=== PATIENT | female | born 1935 | race African-American/Black ===

== ENCOUNTER 2016-09-02 13:29 | Emergency (ER) | payer OTHER ==
[~2016-09-02] VITALS: Ht 154.9 cm; Wt 100.7 kg
[~2016-09-02 13:29] MED LIST: AMLO10TA4 PO; DIAZEPAM10 MG PO; DOXY100C2 PO; DOXY100T PO; GABA-586 PO; GABA300S PO; HYDR-2762 PO; IPRA4AER IH; OXYC-244 PO; PRED20TA PO; [UNRECOGNIZED DRUG - REMARK]; [UNRECOGNIZED DRUG - REMARK]; blood pressure pill; breathing tx; cholesterol; water pill
--- NOTE | 2016-09-02 15:41 | PHYS DOC ---
Past Medical History Past Medical History: Arthritis, Bronchitis, COPD, Hypertension Past Surgical History: Other Additional Past Surgical Histo: hernia with mesh, bilateral hip and knees Alcohol Use: None Drug Use: None Adult General Chief Complaint Chief Complaint: SHORTNESS OF BREATH [facility] HPI Patient is a 81 year old female presents emergency department stating that she has been having shortness of breath with wheezing. She states that whenever she is up moving around in her apartment she becomes short of air. She states that this is nothing new although she did go to her primary care physician today and was told that she was breathing 35 times per minute and he sent her here to the emergency department. Patient states that she is doing fine she is having no breathing problems whatsoever. She denies any cough or congestion. Patient does states she hasn't albuterol machine at home in which she has used a week ago. Patient denies any recent use of steroids. She denies any swelling in her lower extremities. Review of Systems Review of Systems Constitutional: Denies fever or chills [] Eyes: Denies change in visual acuity, redness, or eye pain [] HENT: Denies nasal congestion or sore throat [] Respiratory: Denies cough C/o shortness of breath and wheezing Cardiovascular: No additional information not addressed in HPI [] GI: Denies abdominal pain, nausea, vomiting, bloody stools or diarrhea [] : Denies dysuria or hematuria [] Musculoskeletal: Denies back pain or joint pain [] Integument: Denies rash or skin lesions [] Neurologic: Denies headache, focal weakness or sensory changes [] Current Medications Current Medications Current Medications Medications (Trade) Dose Ordered Sig/Pam Start Time Stop Time Status Last Admin Dose Admin Albuterol/ Ipratropium (Duoneb) 3 ml 1X ONCE 09/02/16 15:45 09/02/16 15:46 DC 09/02/16 16:32 3 ML Allergies Allergies Allergies Coded Allergies Type Severity Reaction Last Updated Verified Penicillins Allergy Intermediate 04/21/16 Yes Sulfa (Sulfonamide Antibiotics) Allergy Intermediate 04/21/16 Yes iodine Allergy Intermediate 04/21/16 Yes Physical Exam Physical Exam Constitutional: Well developed, well nourished, no acute distress, non-toxic appearance. [] HENT: Normocephalic, atraumatic, bilateral external ears normal, oropharynx moist, no oral exudates, nose normal. [] Eyes: PERRLA, EOMI, conjunctiva normal, no discharge. [] Neck: Normal range of motion, no tenderness, supple, no stridor. [] Cardiovascular:Heart rate regular rhythm, no murmur [] Lungs & Thorax: Bilateral breath sounds with wheezes noted bilaterally posteriorly. Skin: Warm, dry, no erythema, no rash. [] Back: No tenderness Extremities: No tenderness, no cyanosis, no clubbing, ROM intact, patient was noted to have bilateral lower extremity swelling approximately 2+. Peripheral pulses 2+. Neurologic: Alert and oriented X 3, normal motor function, normal sensory function, no focal deficits noted. [] Psychologic: Affect normal, judgement normal, mood normal. [] Current Patient Data Vital Signs Vital Signs Date Time Temp Pulse Resp B/P Pulse Ox O2 Delivery O2 Flow Rate FiO2 09/02/16 16:33 96 Nasal Cannula 09/02/16 15:30 97.7 73 28 195/86 97.7 Lab Values Laboratory Tests Test 09/02/16 16:40 White Blood Count 8.3x10^3/uL (4.0-11.0) Red Blood Count 4.40x10^6/uL (3.50-5.40) Hemoglobin 12.9g/dL (12.0-15.5) Hematocrit 39.9% (36.0-47.0) Mean Corpuscular Volume 91fL (79-100) Mean Corpuscular Hemoglobin 29pg (25-35) Mean Corpuscular Hemoglobin Concent 32g/dL (31-37) Red Cell Distribution Width 14.5% (11.5-14.5) Platelet Count 260x10^3/uL (140-400) Neutrophils (%) (Auto) 42% (31-73) Lymphocytes (%) (Auto) 43% (24-48) Monocytes (%) (Auto) 11% (0-9) H Eosinophils (%) (Auto) 3% (0-3) Basophils (%) (Auto) 1% (0-3) Neutrophils # (Auto) 3.5x10^3uL (1.8-7.7) Lymphocytes # (Auto) 3.6x10^3/uL (1.0-4.8) Monocytes # (Auto) 0.9x10^3/uL (0.0-1.1) Eosinophils # (Auto) 0.2x10^3/uL (0.0-0.7) Basophils # (Auto) 0.1x10^3/uL (0.0-0.2) Sodium Level 141mmol/L (136-145) Potassium Level 3.4mmol/L (3.5-5.1) L Chloride Level 108mmol/L (98-107) H Carbon Dioxide Level 25mmol/L (21-32) Anion Gap 8 (6-14) Blood Urea Nitrogen 13mg/dL (7-20) Creatinine 0.8mg/dL (0.6-1.0) Estimated GFR (Cockcroft-Gault) 83.7 BUN/Creatinine Ratio 16 (6-20) Glucose Level 163mg/dL (70-99) H Calcium Level 8.8mg/dL (8.5-10.1) Total Bilirubin 0.3mg/dL (0.2-1.0) Aspartate Amino Transferase (AST) 55U/L (15-37) H Alanine Aminotransferase (ALT) 85U/L (14-59) H Alkaline Phosphatase 74U/L (46-116) Troponin I Quantitative < 0.017ng/mL (0.000-0.055) VG-Rsc-B-Type Natriuretic Peptide 165pg/mL (0-449) Total Protein 7.6g/dL (6.4-8.2) Albumin 3.4g/dL (3.4-5.0) Albumin/Globulin Ratio 0.8 (1.0-1.7) L Laboratory Tests 09/02/16 16:40 Laboratory Tests 09/02/16 16:40 EKG EKG [] Radiology/Procedures Radiology/Procedures [][facility] [address] [place], [place] [id number] IMAGING REPORT Signed PATIENT: MATTHEW PADILLA ACCOUNT: [id number] : 1935 LOCATION: ER AGE: 81 SEX: F EXAM STATUS: PRE ER ORD. PHYSICIAN: SEBASTIAN MONZON NP REASON: difficulty breathing wheezing PROCEDURE: CHEST AP ONLY Portable AP upright view CXR: Clinical indications: Shortness of air starting today. History of COPD and bronchitis.. Comparison: April 29, 2016. Findings: No acute lung infiltrate or pleural effusion or pulmonary edema or lung mass or pneumothorax is seen. The heart size, pulmonary vasculature, mediastinum and both alber are unremarkable. Impression: No acute radiographic abnormality is seen. DICTATED and SIGNED BY: ESTEE KENNEDY MD DATE: 09/02/16 1633 CC: SEBASTIAN MONZON AIR BRUSH OPERATOR; HARRIETT PHOENIX MD ~ Course & Med Decision Making Course & Med Decision Making Pertinent Labs and Imaging studies reviewed. (See chart for details) Patient received a respiratory treatment here in the emergency Department. Breath sounds are clear at this time. Patient will be discharged home in stable condition. CBC chemistries troponin and BMP normal. Patient will be provided with steroids. She'll be recommended to use her albuterol nebulizer machine more frequently. Recommended following up with her primary care physician next 3 -5 days. Since symptoms to return back to emergency prior has been provided. Patient agrees with discharge instructions treatment regimens and follow-up recommendations. [] Dragon Disclaimer Dragon Disclaimer This electronic medical record was generated, in whole or in part, using a voice recognition dictation system. Departure Departure Impression: Primary Impression: COPD exacerbation Disposition: HOME, SELF-CARE Condition: STABLE Referrals: HARRIETT PHOENIX MD (PCP) Patient Instructions: Chronic Obstructive Pulmonary Disease Exacerbation, Easy- to-Read Additional Instructions: Activity as tolerated. Medications as prescribed. Use your albuterol nebulizer machine every 4-6 hours as needed for shortness of air difficulty breathing or wheezing. Follow-up with her primary care physician in the next 3-5 days. Return back to emergency prior signs symptoms of become worse. Scripts Prednisone 20 Mg [id number] Mg PO DAILY #10 TAB Prov:SEBASTIAN MONZON NP 09/02/16 SEBASTIAN MONZON NP Sep 02, 2016 15:41
[2016-09-02] MEDS ORDERED: IPRATRPIUM/ALBUTEROL 0.5/2.5MG 3 ML NEBU. NEB ONE (15:45)
--- NOTE | 2016-09-02 16:35 | RAD ---
Portable AP upright view CXR: Clinical indications: Shortness of air starting today. History of COPD and bronchitis.. Comparison: April 29, 2016. Findings: No acute lung infiltrate or pleural effusion or pulmonary edema or lung mass or pneumothorax is seen. The heart size, pulmonary vasculature, mediastinum and both alber are unremarkable. Impression: No acute radiographic abnormality is seen.
[2016-09-02 16:54] LABS: BASO # 0.1 x10^3/uL (0.0-0.2); BASO % 1 % (0-3); EOS % 3 % (0-3); HEMATOCRIT 39.9 % (36.0-47.0); HEMOGLOBIN 12.9 g/dL (12.0-15.5); LYMPH # 3.6 x10^3/uL (1.0-4.8); LYMPH % 43 % (24-48); MEAN CORPUSCULAR HEMOGLOBIN 29 pg (25-35); MEAN CORPUSCULAR HGB CONC 32 g/dL (31-37); MEAN CORPUSCULAR VOLUME 91 fL (79-100); MONO % 11 % (0-9); NEUT % 42 % (31-73); PLATELET COUNT 260 x10^3/uL (140-400); RED CELL DISTRIBUTION WIDTH 14.5 % (11.5-14.5); WHITE BLOOD COUNT 8.3 x10^3/uL (4.0-11.0)
[2016-09-02 17:05] LABS: CALCIUM 8.8 mg/dL (8.5-10.1); CREATININE 0.8 mg/dL (0.6-1.0); GFR 83.7; POTASSIUM 3.4 mmol/L (3.5-5.1)
[2016-09-02 17:12] LABS: ALBUMIN 3.4 g/dL (3.4-5.0); ALBUMIN/GLOBULIN RATIO 0.8 (1.0-1.7); TOTAL BILIRUBIN 0.3 mg/dL (0.2-1.0); TOTAL PROTEIN 7.6 g/dL (6.4-8.2)
[2016-09-02 17:20] VITALS: BP 187/84
[2016-09-02] MEDS ORDERED: PRED20TA PO (17:27)
--- NOTE | 2016-09-03 12:16 | EKG ---
[facility] [address] [place] [address] Test Date: 2016-09-02 Test Time: 16:04:50 Pat Name: MATTHEW PADILLA Department: Room: Gender: F Ventilating Engineer: : 1935 Requested By: SEBASTIAN MONZON Order Number: [id number] Reading MD: Marj Hdez Measurements Intervals [place] Rate: 68 P: NC: QRS: -24 QRSD: 84 T: 10 QT: 420 QTc: 447 Interpretive Statements SINUS RHYTHM PROLONGED NC INTERVAL LEFTWARD AXIS Electronically Signed On 09-04-2016 20:54:40 SHEARER SCREEN MEASURER AND TRIMMER by Marj Hdez
== END 2016-09-02 17:45 | disposition home or self-care (01) ==
LOC: EDBD 13:29 → ER 13:29
DX: J44.1 Chronic obstructive pulmonary disease with (acute) exacerbation (principal); M19.90 Unspecified osteoarthritis, unspecified site; I10 Essential (primary) hypertension; Z88.0 Allergy status to penicillin; Z88.2 Allergy status to sulfonamides; Z91.041 Radiographic dye allergy status
CPT/HCPCS: 36415; 71010; 80053; 83880; 84484; 85027; 93005; 94250; 94640; 99285; J7620

== ENCOUNTER 2017-05-03 22:29 | Emergency (ER) | payer OTHER ==
[~2017-05-03] VITALS: Ht 175.3 cm; Wt 104.3 kg
[~2017-05-03 22:29] MED LIST changes: -OXYC-244 PO; +OXYC-327 PO
[2017-05-03 22:35] VITALS: BP 165/83
--- NOTE | 2017-05-03 23:21 | PHYS DOC ---
Past Medical History Past Medical History: Arthritis, Bronchitis, COPD, Hypertension Past Surgical History: Other Additional Past Surgical Histo: hernia with mesh, bilateral hip and knees Alcohol Use: Occasionally Drug Use: None Adult General Chief Complaint Chief Complaint: HIP PAIN HPI HPI Patient is a 82 year old female presents to the emergency department per [facility] Department. Patient states that 3 weeks ago she fell and she's been having right low back and hip pain since that fall. Patient reports that she has chronic low back pain. Patient does report that she's had 1 pint of alcohol to drink tonight. She states she does not drink daily. She does appear intoxicated, slurred speech and inability to consistently follow her injury timeline. Review of Systems Review of Systems Constitutional: Denies fever or chills [] Eyes: Denies change in visual acuity, redness, or eye pain [] HENT: Denies nasal congestion or sore throat [] Respiratory: Denies cough or shortness of breath [] Cardiovascular: No additional information not addressed in HPI [] GI: Denies abdominal pain, nausea, vomiting, bloody stools or diarrhea [] : Denies dysuria or hematuria [] Musculoskeletal: Right low back and right hip pain Integument: Denies rash or skin lesions [] Neurologic: Denies headache, focal weakness or sensory changes [] Endocrine: Denies polyuria or polydipsia [] Allergies Allergies Allergies Coded Allergies Type Severity Reaction Last Updated Verified Penicillins Allergy Intermediate 04/21/16 Yes Sulfa (Sulfonamide Antibiotics) Allergy Intermediate 04/21/16 Yes iodine Allergy Intermediate 04/21/16 Yes Physical Exam Physical Exam Constitutional: Well developed, well nourished, no acute distress, non-toxic appearance. [] HENT: Normocephalic, atraumatic, bilateral external ears normal, oropharynx moist, no oral exudates, nose normal. [] Eyes: PERRLA, EOMI, conjunctiva normal, no discharge. [] Neck: Normal range of motion, no tenderness, supple, no stridor. [] Cardiovascular:Heart rate regular rhythm, no murmur, trace LE edema [] Lungs & Thorax: Bilateral breath sounds clear to auscultation [] Abdomen: Bowel sounds normal, soft, no tenderness, no masses, no pulsatile masses. [] Skin: Warm, dry, no erythema, no rash. [] Back: Tender to palpate over the right sacroiliac crest. No midline spine tenderness. Extremities:Mild tender to palpate over the right lateral hip into the right lateral thigh. Negative straight raise leg test. No saddle anesthesia. Patient does have increase in pain in the lumbar region with flexion of the hip at 90. NVI distally. Bilateral calves are supple, negative Homans bilaterally Neurologic: Alert and oriented X 3, normal motor function, normal sensory function, no focal deficits noted. NHISS assessed score 0 [] Current Patient Data Vital Signs Vital Signs Date Time Temp Pulse Resp B/P (MAP) Pulse Ox O2 Delivery O2 Flow Rate FiO2 05/03/17 22:35 98.3 103 18 165/83 (110) 97 Room Air 98.3 EKG EKG [] Radiology/Procedures Radiology/Procedures Right hip and pelvis x-ray unremarkable for acute bony changes Course & Med Decision Making Course & Med Decision Making Pertinent Labs and Imaging studies reviewed. (See chart for details) []Patient will be discharged to the care of a family friend. He has agreed to stay with her this evening. She is in stable condition on discharge Dragon Disclaimer Dragon Disclaimer This electronic medical record was generated, in whole or in part, using a voice recognition dictation system. Departure Departure Impression: Primary Impression: Sciatica Disposition: HOME, SELF-CARE Condition: STABLE Referrals: HARRIETT PHOENIX MD (PCP) Patient Instructions: Back Pain, Adult, Sciatica Problem Qualifiers Primary Impression: Sciatica Laterality: right Qualified Codes: M54.31 - Sciatica, right side EDINSON GARCIA APRN May 03, 2017 23:21
--- NOTE | 2017-05-04 08:16 | RAD ---
Indication right hip pain. 2 AP views of the pelvis were obtained as well as targeted AP and frog leg views of the right hip. There are bilateral total hip prostheses. There are some degenerative changes in the visualized lower lumbar spine. Several phleboliths are noted in the pelvis. There is moderately extensive vascular calcification. No acute bony finding is seen. IMPRESSION: No acute bony finding
== END 2017-05-03 23:50 | disposition home or self-care (01) ==
LOC: ER 22:29
DX: M54.41 Lumbago with sciatica, right side (principal); M25.551 Pain in right hip; G89.29 Other chronic pain; I10 Essential (primary) hypertension; J44.9 Chronic obstructive pulmonary disease, unspecified; M19.90 Unspecified osteoarthritis, unspecified site; Z88.0 Allergy status to penicillin; Z88.2 Allergy status to sulfonamides; Z91.041 Radiographic dye allergy status
CPT/HCPCS: 73502; 99284

== ENCOUNTER → 2017-09-01 | Outpatient (CLI) | payer MEDICARE | END | disposition home or self-care (01) | LOC: KCIC 09:16 | DX: M79.652 Pain in left thigh (principal); Z96.652 Presence of left artificial knee joint; Z96.642 Presence of left artificial hip joint; Z91.81 History of falling | CPT/HCPCS: 73552 ==

== ENCOUNTER → 2017-09-21 | Outpatient (CLI) | payer BC | END | disposition home or self-care (01) | LOC: PMGORTHO 09:49 | DX: M47.896 Other spondylosis, lumbar region (principal); M43.16 Spondylolisthesis, lumbar region; M48.061 Spinal stenosis, lumbar region without neurogenic claudication; M46.06 Spinal enthesopathy, lumbar region | CPT/HCPCS: 72100 ==

== ENCOUNTER → 2017-11-15 | Outpatient (CLI) | payer OTHER | END | disposition home or self-care (01) | LOC: KCIC MRI 10:25 | DX: M51.37 Other intervertebral disc degeneration, lumbosacral region (principal); M43.16 Spondylolisthesis, lumbar region; M48.061 Spinal stenosis, lumbar region without neurogenic claudication; M25.78 Osteophyte, vertebrae | CPT/HCPCS: 72148 ==

== ENCOUNTER → 2017-12-11 | Outpatient (CLI) | payer OTHER ==
[~2017-12-11] MED LIST changes: -AMLO10TA4 PO; -DIAZEPAM10 MG PO; -DOXY100C2 PO; -DOXY100T PO; -GABA-586 PO; -GABA300S PO; -HYDR-2762 PO; +IOHEXOL 180 MG/ML 10 ML VIAL.; -IPRA4AER IH; -OXYC-327 PO; -PRED20TA PO; -[UNRECOGNIZED DRUG - REMARK]; -[UNRECOGNIZED DRUG - REMARK]; -blood pressure pill; -breathing tx; -cholesterol; +methylPREDNISolone ACETATE 40 MG/ML VIAL.; +methylPREDNISolone ACETATE 80 MG/ML VIAL.; -water pill
== END | disposition home or self-care (01) ==
LOC: PNCL 10:18
DX: M51.16 Intervertebral disc disorders with radiculopathy, lumbar region (principal); M48.061 Spinal stenosis, lumbar region without neurogenic claudication; I10 Essential (primary) hypertension; J43.9 Emphysema, unspecified; M19.90 Unspecified osteoarthritis, unspecified site; F17.210 Nicotine dependence, cigarettes, uncomplicated; Z99.81 Dependence on supplemental oxygen; Z96.643 Presence of artificial hip joint, bilateral; Z90.710 Acquired absence of both cervix and uterus; Z90.49 Acquired absence of other specified parts of digestive tract; Z96.653 Presence of artificial knee joint, bilateral; Z88.0 Allergy status to penicillin; Z88.2 Allergy status to sulfonamides; Z79.899 Other long term (current) drug therapy
CPT/HCPCS: 62323; J1030; J1040; Q9965

== ENCOUNTER → 2017-12-29 | Outpatient (CLI) | payer OTHER | END | disposition home or self-care (01) | LOC: US 15:07 | DX: N28.89 Other specified disorders of kidney and ureter (principal); I11.0 Hypertensive heart disease with heart failure; I50.43 Acute on chronic combined systolic (congestive) and diastolic (congestive) heart failure | CPT/HCPCS: 76770 ==

== ENCOUNTER 2018-04-03 20:45 | Inpatient (IN) | payer OTHER ==
[~2018-04-03] VITALS: Ht 154.9 cm; Wt 98.9 kg
[~2018-04-03 20:45] MED LIST changes: +AMLO10TA4 PO; +ASPI-482 PO; +ATOR20TA58 PO; +ATOR40TA59 PO; +CARV12.5 PO; +CARV25TA2 PO; +CEFP200T PO; +DIAZEPAM10 MG PO; +DILT180C2 PO; +DOXY100C2 PO; +DOXY100T PO; +FLUO20CA8 PO; +FURO-68 PO; +FURO40TA4 PO; +GABA-586 PO; +GABA300S PO; +HYDR-2762 PO; +HYDR-2868 PO; -IOHEXOL 180 MG/ML 10 ML VIAL.; +IPRA4AER IH; +LOSA100T6 PO; +LOSA50TA6 PO; +OXYC-327 PO; +POTA20TA82 PO; +PRED20TA PO; +[UNRECOGNIZED DRUG - REMARK]; +[UNRECOGNIZED DRUG - REMARK]; +blood pressure pill; +breathing tx; +cholesterol; -methylPREDNISolone ACETATE 40 MG/ML VIAL.; -methylPREDNISolone ACETATE 80 MG/ML VIAL.; +water pill
--- NOTE | 2018-04-03 21:24 | PHYS DOC ---
Past Medical History Past Medical History: CHF, COPD Past Surgical History: Knee Replacement Additional Past Surgical Histo: hernia with mesh, bilateral hip and knees Alcohol Use: None Drug Use: None Adult General Chief Complaint Chief Complaint: SHORTNESS OF BREATH HPI HPI Patient is a 82 year old female with history of COPD, current smoker, who presents today from home, by EMS, EMS crew reports this patient has been picked up 5 times from the floor in her own house after falling. They also stated patient needed oxygen at home when she was picked up. Patient states she has history of COPD and uses oxygen as needed. She states she has chronic problems with her left leg. She states her own doctor recommended she gets injections to her back which she refused. She states she already drank alcohol today. She states she does not want anyone sticking her for IVs. I tried talking to patient find out her reasonable expectation about being in the ED. Patient continues to be loud she is currently stating she does not want anybody drawing labs and sticking her multiple times. She is alert and oriented 3, she is currently on room air with O2 sats above 95%. Patient also very defensive stating we cannot touch her left lower extremity. Patient denies any loss of bowel bladder function. Denies any numbness or tingling to bilateral lower extremities. PCP Dr. Aaron Gama's Review of Systems Review of Systems Constitutional: Denies fever or chills [] Eyes: Denies change in visual acuity, redness, or eye pain [] HENT: Denies nasal congestion or sore throat [] Respiratory: Reports shortness of breath. Denies cough Cardiovascular: No additional information not addressed in HPI [] GI: Denies abdominal pain, nausea, vomiting, bloody stools or diarrhea [] : Denies dysuria or hematuria [] Musculoskeletal: Multiple falls today. Integument: Denies rash or skin lesions [] Neurologic: Denies headache, focal weakness or sensory changes [] All other systems were reviewed and found to be within normal limits, except as documented in this note. Current Medications Current Medications Current Medications Medications (Trade) Dose Ordered Sig/Pam Start Time Stop Time Status Last Admin Dose Admin Albuterol/ Ipratropium (Duoneb) 3 ml 1X ONCE 04/03/18 21:30 04/03/18 21:31 DC 04/03/18 21:22 3 ML Dexamethasone Sodium Phosphate (Decadron) 10 mg 1X ONCE 04/03/18 21:30 04/03/18 21:31 DC 04/04/18 00:05 10 MG Sodium Chloride 1,000 ml @ 1,000 mls/hr 1X ONCE 04/03/18 21:30 04/03/18 22:29 DC 04/04/18 00:05 1,000 MLS/HR Allergies Allergies Allergies Coded Allergies Type Severity Reaction Last Updated Verified Penicillins Allergy Intermediate 04/21/16 Yes Sulfa (Sulfonamide Antibiotics) Allergy Intermediate 04/21/16 Yes iodine Allergy Intermediate 04/21/16 Yes piperacillin Allergy Intermediate 06/10/17 No Physical Exam Physical Exam Constitutional: Well developed, well nourished, no acute distress, non-toxic appearance. [] HENT: Normocephalic, atraumatic, bilateral external ears normal, oropharynx moist, no oral exudates, nose normal. [] Eyes: PERRLA, EOMI, conjunctiva normal, no discharge. [] Neck: Normal range of motion, no tenderness, supple, no stridor. [] Cardiovascular:Heart rate regular rhythm, no murmur [] Lungs & Thorax: Bilateral breath sounds clear to auscultation [] Abdomen: Bowel sounds normal, soft, no tenderness, no masses, no pulsatile masses. [] Skin: Warm, dry, no erythema, no rash. [] Back: No tenderness, no CVA tenderness. [] Extremities: Limited lower extremity exam because patient will not let us touch her lower extremities. no clubbing, no edema. [] Neurologic: Alert and oriented X 3, normal motor function, normal sensory function, no focal deficits noted. [] Psychologic: Very loud appears drunk Current Patient Data Vital Signs Vital Signs Date Time Temp Pulse Resp B/P (MAP) Pulse Ox O2 Delivery O2 Flow Rate FiO2 04/03/18 21:22 100 Nasal Cannula 04/03/18 20:59 79 186/86 (119) 04/03/18 20:45 98.3 22 98.3 Lab Values Laboratory Tests Test 04/03/18 22:25 Urine Collection Type Unknown Urine Color Yellow Urine Clarity Clear Urine pH 5.0 Urine Specific [place] 1.010 Urine Protein Negative mg/dL (NEG-TRACE) Urine Glucose (UA) Negative mg/dL (NEG) Urine Ketones (Stick) Negative mg/dL (NEG) Urine Blood Negative (NEG) Urine Nitrite Negative (NEG) Urine Bilirubin Negative (NEG) Urine Urobilinogen Dipstick 0.2 mg/dL (0.2 mg/dL) Urine Leukocyte Esterase Negative (NEG) Urine RBC Occ /HPF (0-2) Urine WBC Occ /HPF (0-4) Urine Squamous Epithelial Cells Mod /LPF Urine Bacteria Few /HPF (0-FEW) Urine Mucus Slight /LPF Urine Opiates Screen Neg (NEG) Urine Methadone Screen Neg (NEG) Urine Barbiturates Neg (NEG) Urine Phencyclidine Screen Neg (NEG) Urine Amphetamine/Methamphetamine Neg (NEG) Urine Benzodiazepines Screen Neg (NEG) Urine Cocaine Screen Neg (NEG) Urine Cannabinoids Screen Neg (NEG) Urine Ethyl Alcohol Pos (NEG) EKG EKG [] Radiology/Procedures Radiology/Procedures [] Course & Med Decision Making Course & Med Decision Making Pertinent Labs and Imaging studies reviewed. 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 They state she was short of air when the arrived to her house. Patient herself states she uses oxygen as needed, she states she did not have her oxygen on when she fell. Patient is very loud screaming and refusing to be assessed or touched she appears drunk. She is refusing lab work. After while in the ED labs obtained. Alcohol level 213. CT of the head was also ordered. Chest x-ray is negative. CBC CMP troponin are negative. This patient is not safe to be discharged home. Consulted with Dr. Neves who accepted patient for admission. Banana bag ordered. Alcohol withdrawal protocol ordered. Head CT pending. Dragon Disclaimer Dragon Disclaimer This electronic medical record was generated, in whole or in part, using a voice recognition dictation system. Departure Departure Impression: Primary Impression: Fall Additional Impressions: ETOH abuse COPD (chronic obstructive pulmonary disease) Disposition: ADMITTED INPATIENT Condition: STABLE Referrals: AARON FARRAR MD (PCP) Problem Qualifiers Primary Impression: Fall Encounter type: initial encounter Qualified Codes: W19.XXXA - Unspecified fall, initial encounter Additional Impressions: COPD (chronic obstructive pulmonary disease) COPD type: unspecified COPD Qualified Codes: J44.9 - Chronic obstructive pulmonary disease, unspecified MUTUNGA,JULIANNE SERVICE DESK LEAD Apr 03, 2018 21:24
[2018-04-03] MEDS ORDERED: DEXAMETHASONE SOD PHOS 20 MG/5 ML VIAL. IV ONE (21:30)
[2018-04-03] MEDS ORDERED: IPRATRPIUM/ALBUTEROL 0.5/2.5MG 3 ML NEBU. NEB ONE (21:30)
[2018-04-03] MEDS ORDERED: IV NORMAL SALINE 1000ML BAG 1,000 ML IV ONE (21:30)
--- NOTE | 2018-04-03 22:24 | RAD ---
Indication:LEFT KNEE, DISTAL FEMUR PAIN AFTER FALL. PT REFUSES TO PERFORM LATERAL POSITION OF LEFT KNEE TECHNIQUE: 3 views of the left knee COMPARISON:None FINDINGS: Status post total knee arthroplasty. No acute fracture or dislocation. Arterial calcification seen suggesting atherosclerotic disease. IMPRESSION: No acute fractures in this limited exam. Electronically signed by: Karan Dean DO (04/03/2018 10:21 PM) [facility]
--- NOTE | 2018-04-03 22:25 | RAD ---
PROCEDURE: PORTABLE CHEST 1V CLINICAL INDICATION: SOA COMPARISON: None FINDINGS: No pneumothorax identified. Cardiac and mediastinal contours unremarkable. No pulmonary consolidation or acute airspace disease. No acute osseous abnormalities identified. IMPRESSION: No pulmonary consolidation or acute airspace disease. Electronically signed by: Karan Dean DO (04/03/2018 10:22 PM) [facility]
[2018-04-03 22:39] LABS: BILIRUBIN,URINE NEGATIVE (NEG); CLARITY,URINE CLEAR; COLOR,URINE YELLOW; NITRITE,URINE NEGATIVE (NEG); PROTEIN,URINE NEGATIVE (NEG-TRACE); UROBILINOGEN,URINE 0.2 mg/dL (0.2 mg/dL)
[2018-04-03 22:44] LABS: BARBITURATES NEG (NEG); BENZODIAZEPINES NEG (NEG); CANNABINOIDS NEG (NEG); COCAINE NEG (NEG); METHADONE NEG (NEG); OPIATES NEG (NEG); PHENCYCLIDINE NEG (NEG)
[2018-04-03 22:45] LABS: BACTERIA,URINE FEW /HPF (0-FEW); RBC,URINE OCC /HPF (0-2); SQUAMOUS EPITHELIAL CELL,UR MOD /LPF; WBC,URINE OCC /HPF (0-4)
[2018-04-03 22:46] LABS: AMPHETAMINE/METHAMPHETAMINE NEG (NEG)
[2018-04-03 23:27] LABS: BASO # 0.1 x10^3/uL (0.0-0.2); BASO % 1 % (0-3); EOS # 0.2 x10^3/uL (0.0-0.7); EOS % 2 % (0-3); HEMATOCRIT 40.4 % (36.0-47.0); HEMOGLOBIN 13.5 g/dL (12.0-15.5); LYMPH # 4.4 x10^3/uL (1.0-4.8); LYMPH % 49 % (24-48); MEAN CORPUSCULAR HEMOGLOBIN 31 pg (25-35); MEAN CORPUSCULAR HGB CONC 34 g/dL (31-37); MEAN CORPUSCULAR VOLUME 91 fL (79-100); MONO # 0.7 x10^3/uL (0.0-1.1); MONO % 8 % (0-9); NEUT # 3.6 x10^3uL (1.8-7.7); NEUT % 40 % (31-73); PLATELET COUNT 241 x10^3/uL (140-400); RED BLOOD COUNT 4.43 x10^6/uL (3.50-5.40); WHITE BLOOD COUNT 8.9 x10^3/uL (4.0-11.0)
[2018-04-03 23:40] LABS: CALCIUM 9.2 mg/dL (8.5-10.1); CREATININE 0.8 mg/dL (0.6-1.0); GFR 83.5; POTASSIUM 4.1 mmol/L (3.5-5.1)
[2018-04-03 23:45] LABS: ALBUMIN 3.7 g/dL (3.4-5.0); ALBUMIN/GLOBULIN RATIO 0.9 (1.0-1.7); MAGNESIUM 1.9 mg/dL (1.8-2.4); TOTAL BILIRUBIN 0.3 mg/dL (0.2-1.0); TOTAL PROTEIN 7.7 g/dL (6.4-8.2)
--- NOTE | 2018-04-03 23:53 | EKG ---
[facility] [address] [place] [address] Test Date: 2018-04-03 Test Time: 21:37:00 Pat Name: MATTHEW PADILLA Department: Room: 554 1 Gender: F Log Chipper: : 1935 Requested By: JULIANNE POP Order Number: [id number] Reading MD: Riccardo Granados MD Measurements Intervals [place] Rate: 83 P: 62 TN: 226 QRS: -7 QRSD: 82 T: 6 QT: 422 QTc: 502 Interpretive Statements SINUS RHYTHM PROLONGED TN INTERVAL RBBB Electronically Signed On 04-04-2018 8:19:44 CDT by Riccardo Granados MD
[2018-04-04] MEDS ORDERED: MORPHINE SULFATE 4 MG/ML VIAL. IV PRN (00:45)
[2018-04-04] MEDS ORDERED: ACETAMINOPHEN 325 MG TABLET. PO PRN (00:45)
[2018-04-04] MEDS ORDERED: ONDANSETRON PF 4 MG/2 ML VIAL. IV PRN (00:45)
[2018-04-04 01:15] VITALS: BP 182/97
[2018-04-04] MEDS ORDERED: MULTIVIT INFUSN,ADULT 4,VIT K 10 ML, THIAMINE 100 MG, FOLIC ACID 1 MG in IV NORMAL SALI... IV ONE (01:30)
[2018-04-04 04:54] LABS: % BANDS 1 % (0-9); % EOS 2 % (0-5); % LYMPHS 52 % (24-48); % MONOS 3 % (0-10); % SEGS 42 % (35-66); PLT ESTIMATE ADEQUATE (ADEQUATE)
[2018-04-04 07:00] VITALS: BP 209/109
[2018-04-04] MEDS ORDERED: GABA300C8 PO (07:44)
[2018-04-04] MEDS ORDERED: TRAM100C2 PO (07:44)
[2018-04-04] MEDS: IPRATRPIUM/ALBUTEROL 0.5/2.5MG 3 ML NEBU. NEB SCH ×4 (07:45→19:40)
[2018-04-04] MEDS: CARVEDILOL 12.5 MG TABLET. PO SCH ×2 (08:29→16:54)
[2018-04-04] MEDS: LOSARTAN POTASSIUM 50 MG TABLET. PO SCH (08:30)
[2018-04-04] MEDS ORDERED: LABETALOL 20 MG/4 ML DISP.SYRIN. IVP ONE (08:30)
[2018-04-04] MEDS: traMADol 50 MG TABLET PO PRN ×2 (08:30→14:00)
[2018-04-04] MEDS: GABAPENTIN 300 MG CAPSULE. PO SCH ×3 (08:31→21:24)
[2018-04-04] MEDS: FUROSEMIDE 40 MG TABLET. PO SCH (08:31)
--- NOTE | 2018-04-04 09:05 | RAD ---
EXAM: CT Head without IV contrast CLINICAL HISTORY: FALLS PRIOR SENT COMPARISON: CT head 05/21/2016 TECHNIQUE: Routine CT of the head without contrast. Soft tissues and bone windows were reviewed. PQRS compliance statement - One or more of the following individualized dose reduction techniques were utilized for this study: 1. Automated exposure control 2. Adjustment of the mA and/or kV according to patient size 3. Use of iterative reconstruction technique FINDINGS: There is no evidence of hemorrhage, mass or extra-axial fluid collection. Jamil-white differentiation is maintained with no evidence of edema. There are non-specific foci of hypodensity in the periventricular and subcortical white matter of the cerebral hemispheres. There is no mass effect or shift of the intracranial structures. The ventricles, basilar cisterns and cortical sulci are normal in size and configuration for the patients stated age. The cerebellum and brainstem are unremarkable. The calvarium demonstrates no evidence of fracture or focal lesion. There is normal aeration of the visualized paranasal sinuses and mastoid air cells. The visualized portions of the orbits are normal. Atherosclerotic calcifications of the intracranial internal carotid and vertebral arteries is seen. IMPRESSION: 1. No evidence for acute intracranial process. 2. Scattered foci of subcortical and periventricular hypodensities likely chronic small vessel disease Electronically signed by: Josse Hollins MD (04/04/2018 9:02 AM) [id number]
[2018-04-04] MEDS: hydrALAZINE 25 MG TABLET PO SCH ×3 (09:13→21:25)
--- NOTE | 2018-04-04 10:47 | PDOC ---
PROGRESS NOTES Chief Complaint Chief Complaint CC presents from home, by EMS, EMS crew reports this patient has been picked up 5 times from the floor in her own house after falling. patient needed oxygen at home when she was picked up. has history of COPD and uses oxygen as needed. History of Present Illness History of Present Illness Impression: Fall GAIT instability [place] ALCOHOL ABUSE COPD (chronic obstructive pulmonary disease) HYPERTENSION CHRONIC PAIN dental caries PLAN OFFERED ETOH REHAB PT/OT TELE BED ALARM HIGH [place] RISK D/C TRAMADOL DUE TO ETOH USE Vitals Vitals Vital Signs Date Time Temp Pulse Resp B/P (MAP) Pulse Ox O2 Delivery O2 Flow Rate FiO2 04/04/18 09:13 68 141/98 04/04/18 08:30 18 100 Nasal Cannula 2.0 04/04/18 07:00 97.6 97.6 Physical Exam Physical Exam Review of Systems Review of Systems Constitutional: Denies fever or chills [] Eyes: Denies change in visual acuity, redness, or eye pain [] HENT: Denies nasal congestion or sore throat [] Respiratory: Reports shortness of breath. Denies cough Cardiovascular: No additional information not addressed in HPI [] GI: Denies abdominal pain, nausea, vomiting, bloody stools or diarrhea [] : Denies dysuria or hematuria [] Musculoskeletal: Multiple falls today. Integument: Denies rash or skin lesions [] Neurologic: Denies headache, focal weakness or sensory changes [] 14 systems were reviewed and found to be within normal limits, except as documented General: Alert, Oriented X3, Cooperative, mild distress, Other (multiple caries ) Heart: Regular rate Lungs: Clear Abdomen: Normal bowel sounds, Soft Extremities: No cyanosis Skin: No significant lesion Labs LABS Laboratory Tests Test 04/03/18 22:25 04/03/18 23:10 04/04/18 08:00 Urine Collection Type Unknown Urine Color Yellow Urine Clarity Clear Urine pH 5.0 Urine Specific [place] 1.010 Urine Protein Negative mg/dL (NEG-TRACE) Urine Glucose (UA) Negative mg/dL (NEG) Urine Ketones (Stick) Negative mg/dL (NEG) Urine Blood Negative (NEG) Urine Nitrite Negative (NEG) Urine Bilirubin Negative (NEG) Urine Urobilinogen Dipstick 0.2 mg/dL (0.2 mg/dL) Urine Leukocyte Esterase Negative (NEG) Urine RBC Occ /HPF (0-2) Urine WBC Occ /HPF (0-4) Urine Squamous Epithelial Cells Mod /LPF Urine Bacteria Few /HPF (0-FEW) Urine Mucus Slight /LPF Urine Opiates Screen Neg (NEG) Urine Methadone Screen Neg (NEG) Urine Barbiturates Neg (NEG) Urine Phencyclidine Screen Neg (NEG) Urine Amphetamine/Methamphetamine Neg (NEG) Urine Benzodiazepines Screen Neg (NEG) Urine Cocaine Screen Neg (NEG) Urine Cannabinoids Screen Neg (NEG) Urine Ethyl Alcohol Pos (NEG) White Blood Count 8.9 x10^3/uL (4.0-11.0) Red Blood Count 4.43 x10^6/uL (3.50-5.40) Hemoglobin 13.5 g/dL (12.0-15.5) Hematocrit 40.4 % (36.0-47.0) Mean Corpuscular Volume 91 fL (79-100) Mean Corpuscular Hemoglobin 31 pg (25-35) Mean Corpuscular Hemoglobin Concent 34 g/dL (31-37) Red Cell Distribution Width 15.0 % (11.5-14.5) Platelet Count 241 x10^3/uL (140-400) Neutrophils (%) (Auto) 40 % (31-73) Lymphocytes (%) (Auto) 49 % (24-48) Monocytes (%) (Auto) 8 % (0-9) Eosinophils (%) (Auto) 2 % (0-3) Basophils (%) (Auto) 1 % (0-3) Neutrophils # (Auto) 3.6 x10^3uL (1.8-7.7) Lymphocytes # (Auto) 4.4 x10^3/uL (1.0-4.8) Monocytes # (Auto) 0.7 x10^3/uL (0.0-1.1) Eosinophils # (Auto) 0.2 x10^3/uL (0.0-0.7) Basophils # (Auto) 0.1 x10^3/uL (0.0-0.2) Segmented Neutrophils % 42 % (35-66) Band Neutrophils % 1 % (0-9) Lymphocytes % 52 % (24-48) Monocytes % 3 % (0-10) Eosinophils % 2 % (0-5) Platelet Estimate Adequate (ADEQUATE) Sodium Level 142 mmol/L (136-145) Potassium Level 4.1 mmol/L (3.5-5.1) Chloride Level 106 mmol/L (98-107) Carbon Dioxide Level 23 mmol/L (21-32) Anion Gap 13 (6-14) Blood Urea Nitrogen 14 mg/dL (7-20) Creatinine 0.8 mg/dL (0.6-1.0) Estimated GFR (Cockcroft-Gault) 83.5 BUN/Creatinine Ratio 18 (6-20) Glucose Level 155 mg/dL (70-99) Calcium Level 9.2 mg/dL (8.5-10.1) Magnesium Level 1.9 mg/dL (1.8-2.4) Total Bilirubin 0.3 mg/dL (0.2-1.0) Aspartate Amino Transf (AST/SGOT) 83 U/L (15-37) Alanine Aminotransferase (ALT/SGPT) 93 U/L (14-59) Alkaline Phosphatase 79 U/L (46-116) Creatine Kinase 523 U/L (26-192) Creatine Kinase MB (Mass) 6.0 ng/mL (0.0-3.6) Creatine Kinase MB Relative Index 1.1 % (0-4) Troponin I Quantitative < 0.017 ng/mL (0.000-0.055) XD-Che-T-Type Natriuretic Peptide 169 pg/mL (0-449) Total Protein 7.7 g/dL (6.4-8.2) Albumin 3.7 g/dL (3.4-5.0) Albumin/Globulin Ratio 0.9 (1.0-1.7) Lipase 118 U/L (73-393) Thyroid Stimulating Hormone (TSH) 1.172 uIU/mL (0.358-3.74) Ethyl Alcohol Level 213 mg/dL (0-10) 55 mg/dL (0-10) Assessment and Plan Assessmemt and Plan Problems Medical Problems: (1) COPD (chronic obstructive pulmonary disease) Status: Acute (2) ETOH abuse Status: Acute (3) Fall Status: Acute Comment Review of Relevant I have reviewed the following items pricila (where applicable) has been applied. Labs Laboratory Tests Test 04/03/18 22:25 04/03/18 23:10 04/04/18 08:00 Urine Collection Type Unknown Urine Color Yellow Urine Clarity Clear Urine pH 5.0 Urine Specific [place] 1.010 Urine Protein Negative mg/dL (NEG-TRACE) Urine Glucose (UA) Negative mg/dL (NEG) Urine Ketones (Stick) Negative mg/dL (NEG) Urine Blood Negative (NEG) Urine Nitrite Negative (NEG) Urine Bilirubin Negative (NEG) Urine Urobilinogen Dipstick 0.2 mg/dL (0.2 mg/dL) Urine Leukocyte Esterase Negative (NEG) Urine RBC Occ /HPF (0-2) Urine WBC Occ /HPF (0-4) Urine Squamous Epithelial Cells Mod /LPF Urine Bacteria Few /HPF (0-FEW) Urine Mucus Slight /LPF Urine Opiates Screen Neg (NEG) Urine Methadone Screen Neg (NEG) Urine Barbiturates Neg (NEG) Urine Phencyclidine Screen Neg (NEG) Urine Amphetamine/Methamphetamine Neg (NEG) Urine Benzodiazepines Screen Neg (NEG) Urine Cocaine Screen Neg (NEG) Urine Cannabinoids Screen Neg (NEG) Urine Ethyl Alcohol Pos (NEG) White Blood Count 8.9 x10^3/uL (4.0-11.0) Red Blood Count 4.43 x10^6/uL (3.50-5.40) Hemoglobin 13.5 g/dL (12.0-15.5) Hematocrit 40.4 % (36.0-47.0) Mean Corpuscular Volume 91 fL (79-100) Mean Corpuscular Hemoglobin 31 pg (25-35) Mean Corpuscular Hemoglobin Concent 34 g/dL (31-37) Red Cell Distribution Width 15.0 % (11.5-14.5) Platelet Count 241 x10^3/uL (140-400) Neutrophils (%) (Auto) 40 % (31-73) Lymphocytes (%) (Auto) 49 % (24-48) Monocytes (%) (Auto) 8 % (0-9) Eosinophils (%) (Auto) 2 % (0-3) Basophils (%) (Auto) 1 % (0-3) Neutrophils # (Auto) 3.6 x10^3uL (1.8-7.7) Lymphocytes # (Auto) 4.4 x10^3/uL (1.0-4.8) Monocytes # (Auto) 0.7 x10^3/uL (0.0-1.1) Eosinophils # (Auto) 0.2 x10^3/uL (0.0-0.7) Basophils # (Auto) 0.1 x10^3/uL (0.0-0.2) Segmented Neutrophils % 42 % (35-66) Band Neutrophils % 1 % (0-9) Lymphocytes % 52 % (24-48) Monocytes % 3 % (0-10) Eosinophils % 2 % (0-5) Platelet Estimate Adequate (ADEQUATE) Sodium Level 142 mmol/L (136-145) Potassium Level 4.1 mmol/L (3.5-5.1) Chloride Level 106 mmol/L (98-107) Carbon Dioxide Level 23 mmol/L (21-32) Anion Gap 13 (6-14) Blood Urea Nitrogen 14 mg/dL (7-20) Creatinine 0.8 mg/dL (0.6-1.0) Estimated GFR (Cockcroft-Gault) 83.5 BUN/Creatinine Ratio 18 (6-20) Glucose Level 155 mg/dL (70-99) Calcium Level 9.2 mg/dL (8.5-10.1) Magnesium Level 1.9 mg/dL (1.8-2.4) Total Bilirubin 0.3 mg/dL (0.2-1.0) Aspartate Amino Transf (AST/SGOT) 83 U/L (15-37) Alanine Aminotransferase (ALT/SGPT) 93 U/L (14-59) Alkaline Phosphatase 79 U/L (46-116) Creatine Kinase 523 U/L (26-192) Creatine Kinase MB (Mass) 6.0 ng/mL (0.0-3.6) Creatine Kinase MB Relative Index 1.1 % (0-4) Troponin I Quantitative < 0.017 ng/mL (0.000-0.055) XV-Olg-I-Type Natriuretic Peptide 169 pg/mL (0-449) Total Protein 7.7 g/dL (6.4-8.2) Albumin 3.7 g/dL (3.4-5.0) Albumin/Globulin Ratio 0.9 (1.0-1.7) Lipase 118 U/L (73-393) Thyroid Stimulating Hormone (TSH) 1.172 uIU/mL (0.358-3.74) Ethyl Alcohol Level 213 mg/dL (0-10) 55 mg/dL (0-10) Laboratory Tests Test 04/03/18 22:25 04/03/18 23:10 04/04/18 08:00 Urine Collection Type Unknown Urine Color Yellow Urine Clarity Clear Urine pH 5.0 Urine Specific [place] 1.010 Urine Protein Negative mg/dL (NEG-TRACE) Urine Glucose (UA) Negative mg/dL (NEG) Urine Ketones (Stick) Negative mg/dL (NEG) Urine Blood Negative (NEG) Urine Nitrite Negative (NEG) Urine Bilirubin Negative (NEG) Urine Urobilinogen Dipstick 0.2 mg/dL (0.2 mg/dL) Urine Leukocyte Esterase Negative (NEG) Urine RBC Occ /HPF (0-2) Urine WBC Occ /HPF (0-4) Urine Squamous Epithelial Cells Mod /LPF Urine Bacteria Few /HPF (0-FEW) Urine Mucus Slight /LPF Urine Opiates Screen Neg (NEG) Urine Methadone Screen Neg (NEG) Urine Barbiturates Neg (NEG) Urine Phencyclidine Screen Neg (NEG) Urine Amphetamine/Methamphetamine Neg (NEG) Urine Benzodiazepines Screen Neg (NEG) Urine Cocaine Screen Neg (NEG) Urine Cannabinoids Screen Neg (NEG) Urine Ethyl Alcohol Pos (NEG) White Blood Count 8.9 x10^3/uL (4.0-11.0) Red Blood Count 4.43 x10^6/uL (3.50-5.40) Hemoglobin 13.5 g/dL (12.0-15.5) Hematocrit 40.4 % (36.0-47.0) Mean Corpuscular Volume 91 fL (79-100) Mean Corpuscular Hemoglobin 31 pg (25-35) Mean Corpuscular Hemoglobin Concent 34 g/dL (31-37) Red Cell Distribution Width 15.0 % (11.5-14.5) Platelet Count 241 x10^3/uL (140-400) Neutrophils (%) (Auto) 40 % (31-73) Lymphocytes (%) (Auto) 49 % (24-48) Monocytes (%) (Auto) 8 % (0-9) Eosinophils (%) (Auto) 2 % (0-3) Basophils (%) (Auto) 1 % (0-3) Neutrophils # (Auto) 3.6 x10^3uL (1.8-7.7) Lymphocytes # (Auto) 4.4 x10^3/uL (1.0-4.8) Monocytes # (Auto) 0.7 x10^3/uL (0.0-1.1) Eosinophils # (Auto) 0.2 x10^3/uL (0.0-0.7) Basophils # (Auto) 0.1 x10^3/uL (0.0-0.2) Segmented Neutrophils % 42 % (35-66) Band Neutrophils % 1 % (0-9) Lymphocytes % 52 % (24-48) Monocytes % 3 % (0-10) Eosinophils % 2 % (0-5) Platelet Estimate Adequate (ADEQUATE) Sodium Level 142 mmol/L (136-145) Potassium Level 4.1 mmol/L (3.5-5.1) Chloride Level 106 mmol/L (98-107) Carbon Dioxide Level 23 mmol/L (21-32) Anion Gap 13 (6-14) Blood Urea Nitrogen 14 mg/dL (7-20) Creatinine 0.8 mg/dL (0.6-1.0) Estimated GFR (Cockcroft-Gault) 83.5 BUN/Creatinine Ratio 18 (6-20) Glucose Level 155 mg/dL (70-99) Calcium Level 9.2 mg/dL (8.5-10.1) Magnesium Level 1.9 mg/dL (1.8-2.4) Total Bilirubin 0.3 mg/dL (0.2-1.0) Aspartate Amino Transf (AST/SGOT) 83 U/L (15-37) Alanine Aminotransferase (ALT/SGPT) 93 U/L (14-59) Alkaline Phosphatase 79 U/L (46-116) Creatine Kinase 523 U/L (26-192) Creatine Kinase MB (Mass) 6.0 ng/mL (0.0-3.6) Creatine Kinase MB Relative Index 1.1 % (0-4) Troponin I Quantitative < 0.017 ng/mL (0.000-0.055) DX-Hgf-T-Type Natriuretic Peptide 169 pg/mL (0-449) Total Protein 7.7 g/dL (6.4-8.2) Albumin 3.7 g/dL (3.4-5.0) Albumin/Globulin Ratio 0.9 (1.0-1.7) Lipase 118 U/L (73-393) Thyroid Stimulating Hormone (TSH) 1.172 uIU/mL (0.358-3.74) Ethyl Alcohol Level 213 mg/dL (0-10) 55 mg/dL (0-10) Medications Current Medications Albuterol/ Ipratropium (Duoneb) 3 ml 1X ONCE NEB Last administered on at 21:22; Start 04/03/18 at 21:30; Stop 04/03/18 at 21:31; Status DC Dexamethasone Sodium Phosphate (Decadron) 10 mg 1X ONCE IV Last administered on 04/04/18at 00:05; Start 04/03/18 at 21:30; Stop 04/03/18 at 21:31; Status DC Sodium Chloride 1,000 ml @ 1,000 mls/hr 1X ONCE IV Last administered on at 00:05; Start 04/03/18 at 21:30; Stop 04/03/18 at 22:29; Status DC Ondansetron HCl (Zofran) 4 mg PRN Q8HRS PRN IV NAUSEA/VOMITING 1ST CHOICE; Start 04/04/18 at 00:45; Stop 04/05/18 at 00:44 Morphine Sulfate (Morphine Sulfate) 4 mg PRN Q2HR PRN IV SEVERE PAIN; Start at 00:45; Stop 04/05/18 at 00:44 Acetaminophen (Tylenol) 650 mg PRN Q4HRS PRN PO FEVER; Start 04/04/18 at 00:45 ; Stop 04/05/18 at 00:44 Albuterol/ Ipratropium (Duoneb) 3 ml RTQID NEB Last administered on 04/04/18at 07:45; Start 04/04/18 at 08:00; Stop 04/05/18 at 07:59 Lorazepam (Ativan) 2 mg PRN Q15MIN PRN IV ETOH WITHDRAWAL; Start 04/04/18 at 00 :45 Multivitamins 10 ml/Thiamine HCl 100 mg/Folic Acid 1 mg/Sodium Chloride 1,011.2 ml @ 250 mls/ hr 1X ONCE IV Last administered on 04/04/18at 04:47; Start 04/04 at 01:30; Stop 04/04/18 at 05:32; Status DC Atorvastatin Calcium (Lipitor) 20 mg HS PO ; Start 04/04/18 at 21:00 Furosemide (Lasix) 40 mg DAILY PO Last administered on 04/04/18 08:31; Start 04/04/18 at 09:00 Carvedilol (Coreg) 25 mg BIDWMEALS PO Last administered on 04/04/18 08:29; Start 04/04/18 at 09:00 Diltiazem HCl (Cardizem 24hr Cd) 180 mg DAILY PO Last administered on 08:31; Start 04/04/18 at 09:00 Gabapentin (Neurontin) 300 mg TID PO Last administered on 04/04/18 08:31; Start 04/04/18 at 09:00 Hydralazine HCl (Apresoline) 25 mg TID PO Last administered on 04/04/18 09:13 ; Start 04/04/18 at 09:00 Losartan Potassium (Cozaar) 100 mg DAILY PO Last administered on 04/04/18 08: 30; Start 04/04/18 at 09:00 Tramadol HCl (Ultram) 50 mg PRN TID PRN PO PAIN Last administered on 04/04/18 08:30; Start 04/04/18 at 08:15 Labetalol HCl (Normodyne Iv Push) 10 mg 1X ONCE IVP Last administered on 08:28; Start 04/04/18 at 08:30; Stop 04/04/18 at 08:31; Status DC Active Scripts Active Reported Conzip (Tramadol Hcl) 100 Mg Cpmp.25.75 50 Mg PO TID PRN PRN Gabapentin 300 Mg Capsule 300 Mg PO TID 30 Days Cardizem Cd (Diltiazem Hcl) 180 Mg Cap.er.24h 1 Cap PO DAILY Hydralazine Hcl 25 Mg Tablet 1 Tab PO TID Furosemide 40 Mg Tablet 1 Tab PO DAILY Atorvastatin Calcium 20 Mg Tablet 20 Mg PO HS Losartan Potassium 100 Mg Tablet 100 Mg PO DAILY Carvedilol 25 Mg Tablet 1 Tab PO BIDWMEALS Vitals/I & O Vital Sign - Last 24 Hours 04/03/18 04/03/18 04/03/18 04/03/18 20:45 20:59 21:22 23:58 Temp 98.3 98.3 Pulse 82 79 80 Resp 22 B/P (MAP) 186/86 (119) 186/86 (119) 161/97 (118) Pulse Ox 100 100 100 100 O2 Delivery Room Air Nasal Cannula 8/22/18 8/22/18 8/22/18 8/22/18 01:15 02:28 07:00 07:47 Temp 98.0 97.6 98.0 97.6 Pulse 91 92 Resp 20 24 B/P (MAP) 182/97 (125) 209/109 (142) Pulse Ox 93 95 100 O2 Delivery Nasal Cannula Nasal Cannula Nasal Cannula Nasal Cannula O2 Flow Rate 2.0 2.0 2.0 2.0 04/04/18 04/04/18 04/04/18 04/04/18 08:28 08:29 08:30 08:30 Pulse 78 78 78 Resp 18 B/P (MAP) 209/109 209/109 209/109 Pulse Ox 100 O2 Delivery Nasal Cannula O2 Flow Rate 2.0 04/04/18 04/04/18 08:31 09:13 Pulse 78 68 B/P (MAP) 209/109 141/98 Intake and Output 04/03/18 04/03/18 04/04/18 15:00 23:00 07:00 Intake Total 1240 ml Balance 1240 ml OSCAR MANNING MD Apr 04, 2018 10:47
--- NOTE | 2018-04-04 10:51 | PDOC1 ---
History and Physical Date of Admission Date of Admission DATE: 04/04/18 TIME: 10:50 Identification/Chief Complaint Chief Complaint Chief Complaint Chief Complaint CC presents from home, by EMS, EMS crew reports this patient has been picked up 5 times from the floor in her own house after falling. patient needed oxygen at home when she was picked up. has history of COPD and uses oxygen as needed. Alcohol level 213. Past Medical History Past Medical History Past Medical History Past Medical History: CHF, COPD Past Surgical History: Knee Replacement Additional Past Surgical Histo: hernia with mesh, bilateral hip and knees Alcohol Use: None Drug Use: None FAMILY HX OBESITY Cardiovascular: CHF, HTN Pulmonary: COPD GI: GERD Musculoskeletal: Osteoarthritis Endocrine: Diabetes Past Surgical History Past Surgical History: Other Family History Family History: Hypertension, Family History Unknown Social History Smoke: Quit ALCOHOL: heavy Drugs: None Current Problem List Problem List Problems Medical Problems: (1) COPD (chronic obstructive pulmonary disease) Status: Acute (2) ETOH abuse Status: Acute (3) Fall Status: Acute Current Medications Current Medications Current Medications Albuterol/ Ipratropium (Duoneb) 3 ml 1X ONCE NEB Last administered on at 21:22; Start 04/03/18 at 21:30; Stop 04/03/18 at 21:31; Status DC Dexamethasone Sodium Phosphate (Decadron) 10 mg 1X ONCE IV Last administered on 04/04/18at 00:05; Start 04/03/18 at 21:30; Stop 04/03/18 at 21:31; Status DC Sodium Chloride 1,000 ml @ 1,000 mls/hr 1X ONCE IV Last administered on at 00:05; Start 04/03/18 at 21:30; Stop 04/03/18 at 22:29; Status DC Ondansetron HCl (Zofran) 4 mg PRN Q8HRS PRN IV NAUSEA/VOMITING 1ST CHOICE; Start 04/04/18 at 00:45; Stop 04/05/18 at 00:44 Morphine Sulfate (Morphine Sulfate) 4 mg PRN Q2HR PRN IV SEVERE PAIN; Start at 00:45; Stop 04/05/18 at 00:44 Acetaminophen (Tylenol) 650 mg PRN Q4HRS PRN PO FEVER; Start 04/04/18 at 00:45 ; Stop 04/05/18 at 00:44 Albuterol/ Ipratropium (Duoneb) 3 ml RTQID NEB Last administered on 04/04/18 07:45; Start 04/04/18 at 08:00; Stop 04/05/18 at 07:59 Lorazepam (Ativan) 2 mg PRN Q15MIN PRN IV ETOH WITHDRAWAL; Start 04/04/18 at 00 :45 Multivitamins 10 ml/Thiamine HCl 100 mg/Folic Acid 1 mg/Sodium Chloride 1,011.2 ml @ 250 mls/ hr 1X ONCE IV Last administered on 04/04/18at 04:47; Start 04/04 at 01:30; Stop 04/04/18 at 05:32; Status DC Atorvastatin Calcium (Lipitor) 20 mg HS PO ; Start 04/04/18 at 21:00 Furosemide (Lasix) 40 mg DAILY PO Last administered on 04/04/18 08:31; Start 04/04/18 at 09:00 Carvedilol (Coreg) 25 mg BIDWMEALS PO Last administered on 04/04/18at 08:29; Start 04/04/18 at 09:00 Diltiazem HCl (Cardizem 24hr Cd) 180 mg DAILY PO Last administered on 08:31; Start 04/04/18 at 09:00 Gabapentin (Neurontin) 300 mg TID PO Last administered on 04/04/18 08:31; Start 04/04/18 at 09:00 Hydralazine HCl (Apresoline) 25 mg TID PO Last administered on 04/04/18at 09:13 ; Start 04/04/18 at 09:00 Losartan Potassium (Cozaar) 100 mg DAILY PO Last administered on 04/04/18 08: 30; Start 04/04/18 at 09:00 Tramadol HCl (Ultram) 50 mg PRN TID PRN PO PAIN Last administered on 04/04/18 08:30; Start 04/04/18 at 08:15 Labetalol HCl (Normodyne Iv Push) 10 mg 1X ONCE IVP Last administered on 08:28; Start 04/04/18 at 08:30; Stop 04/04/18 at 08:31; Status DC Active Scripts Active Reported Conzip (Tramadol Hcl) 100 Mg Cpmp.25.75 50 Mg PO TID PRN PRN Gabapentin 300 Mg Capsule 300 Mg PO TID 30 Days Cardizem Cd (Diltiazem Hcl) 180 Mg Cap.er.24h 1 Cap PO DAILY Hydralazine Hcl 25 Mg Tablet 1 Tab PO TID Furosemide 40 Mg Tablet 1 Tab PO DAILY Atorvastatin Calcium 20 Mg Tablet 20 Mg PO HS Losartan Potassium 100 Mg Tablet 100 Mg PO DAILY Carvedilol 25 Mg Tablet 1 Tab PO BIDWMEALS Allergies Allergies: Coded Allergies: Penicillins (Verified Allergy, Intermediate, 04/21/16) Sulfa (Sulfonamide Antibiotics) (Verified Allergy, Intermediate, 04/21/16) iodine (Verified Allergy, Intermediate, 04/21/16) piperacillin (Unverified Allergy, Intermediate, 06/10/17) ROS Review of System Review of Systems Review of Systems Constitutional: Denies fever or chills [] Eyes: Denies change in visual acuity, redness, or eye pain [] HENT: Denies nasal congestion or sore throat [] Respiratory: Reports shortness of breath. Denies cough Cardiovascular: No additional information not addressed in HPI [] GI: Denies abdominal pain, nausea, vomiting, bloody stools or diarrhea [] : Denies dysuria or hematuria [] Musculoskeletal: Multiple falls today. Integument: Denies rash or skin lesions [] Neurologic: Denies headache, focal weakness or sensory changes [] 14 PT systems were reviewed and found to be within normal limits, except as documented General: YES: Fatigue Respiratory: YES: Shortness of breath, SOB with excertion Physical Exam Physical Exam Physical Exam Physical Exam Constitutional: Well developed, well nourished, no acute distress, non-toxic appearance. [] HENT: Normocephalic, atraumatic, bilateral external ears normal, oropharynx moist, no oral exudates, nose normal. [] Eyes: PERRLA, EOMI, conjunctiva normal, no discharge. [] Neck: Normal range of motion, no tenderness, supple, no stridor. [] Cardiovascular:Heart rate regular rhythm, no murmur [] Lungs & Thorax: Bilateral breath sounds clear to auscultation [] Abdomen: Bowel sounds normal, soft, no tenderness, no masses, no pulsatile masses. [] Skin: Warm, dry, no erythema, no rash. [] Back: No tenderness, no CVA tenderness. [] Extremities: Limited lower extremity exam because patient will not let us touch her lower extremities. no clubbing, no edema. [] Neurologic: Alert and oriented X 3, normal motor function, normal sensory function, no focal deficits noted. [] Psychologic: appearED drunk IN ER General: Oriented X3, Cooperative HEENT: PERRLA, EOMI, Mucous membr. moist/pink Breasts: Not examined Abdomen: Normal bowel sounds, Soft Extremities: No cyanosis Neuro: Normal speech, Cranial nerves 3-12 NL Vitals Vitals Vital Signs Date Time Temp Pulse Resp B/P (MAP) Pulse Ox O2 Delivery O2 Flow Rate FiO2 04/04/18 09:13 68 141/98 04/04/18 08:30 18 100 Nasal Cannula 2.0 04/04/18 07:00 97.6 97.6 Labs Labs [facility] [address] [place] [address] Test Date: 2018-04-03 Test Time: 21:37:00 Pat Name: MATTHEW PADILLA Department: Room: [facility] Gender: F Weigh Box Tender: : 1935 Requested By: JULIANNE POP Order Number: [id number] Reading MD: Vivek Granados MD Measurements Intervals [place] Rate: 83 P: 62 [place]: 226 QRS: -7 QRSD: 82 T: 6 QT: 422 QTc: 502 Interpretive Statements SINUS RHYTHM PROLONGED OH INTERVAL RBBB Electronically Signed On 04-04-2018 8:19:44 CDT by Vivek Granados MD Laboratory Tests Test 04/03/18 22:25 04/03/18 23:10 04/04/18 08:00 Urine Collection Type Unknown Urine Color Yellow Urine Clarity Clear Urine pH 5.0 Urine Specific [place] 1.010 Urine Protein Negative mg/dL (NEG-TRACE) Urine Glucose (UA) Negative mg/dL (NEG) Urine Ketones (Stick) Negative mg/dL (NEG) Urine Blood Negative (NEG) Urine Nitrite Negative (NEG) Urine Bilirubin Negative (NEG) Urine Urobilinogen Dipstick 0.2 mg/dL (0.2 mg/dL) Urine Leukocyte Esterase Negative (NEG) Urine RBC Occ /HPF (0-2) Urine WBC Occ /HPF (0-4) Urine Squamous Epithelial Cells Mod /LPF Urine Bacteria Few /HPF (0-FEW) Urine Mucus Slight /LPF Urine Opiates Screen Neg (NEG) Urine Methadone Screen Neg (NEG) Urine Barbiturates Neg (NEG) Urine Phencyclidine Screen Neg (NEG) Urine Amphetamine/Methamphetamine Neg (NEG) Urine Benzodiazepines Screen Neg (NEG) Urine Cocaine Screen Neg (NEG) Urine Cannabinoids Screen Neg (NEG) Urine Ethyl Alcohol Pos (NEG) White Blood Count 8.9 x10^3/uL (4.0-11.0) Red Blood Count 4.43 x10^6/uL (3.50-5.40) Hemoglobin 13.5 g/dL (12.0-15.5) Hematocrit 40.4 % (36.0-47.0) Mean Corpuscular Volume 91 fL (79-100) Mean Corpuscular Hemoglobin 31 pg (25-35) Mean Corpuscular Hemoglobin Concent 34 g/dL (31-37) Red Cell Distribution Width 15.0 % (11.5-14.5) Platelet Count 241 x10^3/uL (140-400) Neutrophils (%) (Auto) 40 % (31-73) Lymphocytes (%) (Auto) 49 % (24-48) Monocytes (%) (Auto) 8 % (0-9) Eosinophils (%) (Auto) 2 % (0-3) Basophils (%) (Auto) 1 % (0-3) Neutrophils # (Auto) 3.6 x10^3uL (1.8-7.7) Lymphocytes # (Auto) 4.4 x10^3/uL (1.0-4.8) Monocytes # (Auto) 0.7 x10^3/uL (0.0-1.1) Eosinophils # (Auto) 0.2 x10^3/uL (0.0-0.7) Basophils # (Auto) 0.1 x10^3/uL (0.0-0.2) Segmented Neutrophils % 42 % (35-66) Band Neutrophils % 1 % (0-9) Lymphocytes % 52 % (24-48) Monocytes % 3 % (0-10) Eosinophils % 2 % (0-5) Platelet Estimate Adequate (ADEQUATE) Sodium Level 142 mmol/L (136-145) Potassium Level 4.1 mmol/L (3.5-5.1) Chloride Level 106 mmol/L (98-107) Carbon Dioxide Level 23 mmol/L (21-32) Anion Gap 13 (6-14) Blood Urea Nitrogen 14 mg/dL (7-20) Creatinine 0.8 mg/dL (0.6-1.0) Estimated GFR (Cockcroft-Gault) 83.5 BUN/Creatinine Ratio 18 (6-20) Glucose Level 155 mg/dL (70-99) Calcium Level 9.2 mg/dL (8.5-10.1) Magnesium Level 1.9 mg/dL (1.8-2.4) Total Bilirubin 0.3 mg/dL (0.2-1.0) Aspartate Amino Transf (AST/SGOT) 83 U/L (15-37) Alanine Aminotransferase (ALT/SGPT) 93 U/L (14-59) Alkaline Phosphatase 79 U/L (46-116) Creatine Kinase 523 U/L (26-192) Creatine Kinase MB (Mass) 6.0 ng/mL (0.0-3.6) Creatine Kinase MB Relative Index 1.1 % (0-4) Troponin I Quantitative < 0.017 ng/mL (0.000-0.055) EM-Fti-V-Type Natriuretic Peptide 169 pg/mL (0-449) Total Protein 7.7 g/dL (6.4-8.2) Albumin 3.7 g/dL (3.4-5.0) Albumin/Globulin Ratio 0.9 (1.0-1.7) Lipase 118 U/L (73-393) Thyroid Stimulating Hormone (TSH) 1.172 uIU/mL (0.358-3.74) Ethyl Alcohol Level 213 mg/dL (0-10) 55 mg/dL (0-10) Laboratory Tests Test 04/03/18 22:25 04/03/18 23:10 04/04/18 08:00 Urine Collection Type Unknown Urine Color Yellow Urine Clarity Clear Urine pH 5.0 Urine Specific [place] 1.010 Urine Protein Negative mg/dL (NEG-TRACE) Urine Glucose (UA) Negative mg/dL (NEG) Urine Ketones (Stick) Negative mg/dL (NEG) Urine Blood Negative (NEG) Urine Nitrite Negative (NEG) Urine Bilirubin Negative (NEG) Urine Urobilinogen Dipstick 0.2 mg/dL (0.2 mg/dL) Urine Leukocyte Esterase Negative (NEG) Urine RBC Occ /HPF (0-2) Urine WBC Occ /HPF (0-4) Urine Squamous Epithelial Cells Mod /LPF Urine Bacteria Few /HPF (0-FEW) Urine Mucus Slight /LPF Urine Opiates Screen Neg (NEG) Urine Methadone Screen Neg (NEG) Urine Barbiturates Neg (NEG) Urine Phencyclidine Screen Neg (NEG) Urine Amphetamine/Methamphetamine Neg (NEG) Urine Benzodiazepines Screen Neg (NEG) Urine Cocaine Screen Neg (NEG) Urine Cannabinoids Screen Neg (NEG) Urine Ethyl Alcohol Pos (NEG) White Blood Count 8.9 x10^3/uL (4.0-11.0) Red Blood Count 4.43 x10^6/uL (3.50-5.40) Hemoglobin 13.5 g/dL (12.0-15.5) Hematocrit 40.4 % (36.0-47.0) Mean Corpuscular Volume 91 fL (79-100) Mean Corpuscular Hemoglobin 31 pg (25-35) Mean Corpuscular Hemoglobin Concent 34 g/dL (31-37) Red Cell Distribution Width 15.0 % (11.5-14.5) Platelet Count 241 x10^3/uL (140-400) Neutrophils (%) (Auto) 40 % (31-73) Lymphocytes (%) (Auto) 49 % (24-48) Monocytes (%) (Auto) 8 % (0-9) Eosinophils (%) (Auto) 2 % (0-3) Basophils (%) (Auto) 1 % (0-3) Neutrophils # (Auto) 3.6 x10^3uL (1.8-7.7) Lymphocytes # (Auto) 4.4 x10^3/uL (1.0-4.8) Monocytes # (Auto) 0.7 x10^3/uL (0.0-1.1) Eosinophils # (Auto) 0.2 x10^3/uL (0.0-0.7) Basophils # (Auto) 0.1 x10^3/uL (0.0-0.2) Segmented Neutrophils % 42 % (35-66) Band Neutrophils % 1 % (0-9) Lymphocytes % 52 % (24-48) Monocytes % 3 % (0-10) Eosinophils % 2 % (0-5) Platelet Estimate Adequate (ADEQUATE) Sodium Level 142 mmol/L (136-145) Potassium Level 4.1 mmol/L (3.5-5.1) Chloride Level 106 mmol/L (98-107) Carbon Dioxide Level 23 mmol/L (21-32) Anion Gap 13 (6-14) Blood Urea Nitrogen 14 mg/dL (7-20) Creatinine 0.8 mg/dL (0.6-1.0) Estimated GFR (Cockcroft-Gault) 83.5 BUN/Creatinine Ratio 18 (6-20) Glucose Level 155 mg/dL (70-99) Calcium Level 9.2 mg/dL (8.5-10.1) Magnesium Level 1.9 mg/dL (1.8-2.4) Total Bilirubin 0.3 mg/dL (0.2-1.0) Aspartate Amino Transf (AST/SGOT) 83 U/L (15-37) Alanine Aminotransferase (ALT/SGPT) 93 U/L (14-59) Alkaline Phosphatase 79 U/L (46-116) Creatine Kinase 523 U/L (26-192) Creatine Kinase MB (Mass) 6.0 ng/mL (0.0-3.6) Creatine Kinase MB Relative Index 1.1 % (0-4) Troponin I Quantitative < 0.017 ng/mL (0.000-0.055) TO-Urj-L-Type Natriuretic Peptide 169 pg/mL (0-449) Total Protein 7.7 g/dL (6.4-8.2) Albumin 3.7 g/dL (3.4-5.0) Albumin/Globulin Ratio 0.9 (1.0-1.7) Lipase 118 U/L (73-393) Thyroid Stimulating Hormone (TSH) 1.172 uIU/mL (0.358-3.74) Ethyl Alcohol Level 213 mg/dL (0-10) 55 mg/dL (0-10) Images Images EXAM: Two-dimensional and M-mode echocardiogram with Doppler and color Doppler. Other Information Quality : Technically Limited Rhythm : NSR Technically limited study due to body habitus and positioning. INDICATION Congestive Heart Failure Elevated troponin level 2D DIMENSIONS Left Atrium(2D) 2.6 (1.6-4.0cm) IVSd 1.3 (0.7-1.1cm) Aortic Root(2D) 2.7 (2.0-3.7cm) LVDd 4.8 (3.9-5.9cm) LVOT Diameter 2.2 (1.8-2.4cm) PWd 1.2 (0.7-1.1cm) LVDs 4.3 (2.5-4.0cm) SV 28.1 ml LVEF(%) 14.2 (>50%) Aortic Valve AoV Peak Remi. 98.2cm/s AoV VTI 14.3cm AO Peak GR. 3.9mmHg LVOT VTI 9.81cm AO Mean GR. 2mmHg Mitral Valve MV E Velocity 91.4cm/s MV E Peak Gr. 6mmHg MV DECEL TIME 86ms MV A Velocity 35.9cm/s MV E Mean Gr. 2mmHg E/A Ratio 2.5 MV A Duration 46ms TDI Lateral E' P. V 15.00cm/s Medial E' P. V 7.50cm/s E/Lateral E' 6.1 E/Medial E' 12.2 LEFT VENTRICLE The left ventricle is normal size. There is borderline concentric left ventricular hypertrophy. Left ventricle systolic function is severely impaired. The Ejection Fraction is 15-20%. There is global hypokinesis of the left ventricle. The distal 2/3 of the LV is severely hypokinetic. Suspect either stress induced cardiomyopathy or large LAD territory ischemic infarct. Tissue Doppler imaging reveals severe left ventricular diastolic dysfunction. RIGHT VENTRICLE The right ventricle is normal size. The right ventricular systolic function is normal. ATRIA The left atrium size is normal. The right atrium size is normal. The interatrial septum is intact with no evidence for an atrial septal defect or patent foramen ovale as noted on 2-D or Doppler imaging. AORTIC VALVE The aortic valve is not well visualized. Doppler and Color Flow revealed no significant aortic regurgitation. There is no significant aortic valvular stenosis. MITRAL VALVE The mitral valve is normal in structure. There is no mitral valve stenosis. Doppler and Color Flow revealed mild mitral regurgitation. TRICUSPID VALVE The tricuspid valve is not well visualized. Doppler and Color Flow revealed no tricuspid valve regurgitation noted. Unable to estimate PA pressure. There is no tricuspid valve stenosis. PULMONIC VALVE The pulmonic valve is not well visualized. Doppler and Color Flow revealed no pulmonic valvular regurgitation. There is no pulmonic valvular stenosis. GREAT VESSELS The aortic root is normal in size. Pulmonary veins not recorded. The IVC is normal in size and collapses >50% with inspiration. PERICARDIAL EFFUSION There is no evidence of significant pericardial effusion. Critical Notification Critical Value: No <Conclusion> Left ventricle systolic function is severely impaired. The Ejection Fraction is 15-20%. There is global hypokinesis of the left ventricle. The distal 2/3 of the LV is severely hypokinetic. Suspect either stress induced cardiomyopathy or large LAD territory ischemic infarct. Technically very difficult study due to body habitus. DICTATED and SIGNED BY: VIVEK GRANADOS MD DATE: 05/25/17 1145 VTE Prophylaxis Ordered VTE Prophylaxis Devices: No VTE Pharmacological Prophylaxi: Yes Assessment/Plan Assessment/Plan Impression: Fall GAIT instability [place] ALCOHOL ABUSE COPD (chronic obstructive pulmonary disease) HYPERTENSION CHRONIC PAIN ECHO 2014 Left ventricle systolic function is severely impaired. The Ejection Fraction is 15-20%. There is global hypokinesis of the left ventricle. The distal 2 /3 of the LV is severely hypokinetic PLAN OFFERED ETOH REHAB PT/OT TELE BED ALARM HIGH FALL RISK D/C TRAMADOL DUE TO ETOH USE CARDIOLOGY CONSULTED OSCAR MANNING MD Apr 04, 2018 10:51
[2018-04-04 11:23] VITALS: BP 147/69
--- NOTE | 2018-04-04 14:28 | PDOC2 ---
JOYABASSEM Mustapha UNIT ASSISTANT 04/04/18 1428: CARDIAC CONSULT DATE OF CONSULT Date of Consult DATE: 04/04/18 TIME: 13:59 REASON FOR CONSULT Reason for Consult: CHF/CARDIOMYOPATHY/FALLS REFERRING PHYSICIAN Referring Physician: KERRI SOURCE Source: Chart review HISTORY OF PRESENT ILLNESS HISTORY OF PRESENT ILLNESS 82 YEAR OLD FEMALE ADMITTED THROUGH ER AFTER FALL AT HOME. ER RECORDS INDICATE EMS HAS BEEN AT HER HOUSE RECENTLY FOR 5 FALLS PATIENT CAN NOT GET OFF THE FLOOR. PRESENTED TO ER INTOXICATED AND FOUND TO HAVE A PINT OF ETOH (KATHARINE) IN HER PURSE. CHRONIC DYSPNEA AND HOME O2 USE. DENIES ASSOCIATED CHEST PAIN OR PALPITATIONS. EKG WITHOUT ACUTE FINDINGS, TROPONIN LEVEL NOT CONSISTENT WITH AMI AND BNP LEVEL IS NORMAL @ 169. CXR WITHOUT ACUTE FINDINGS. Reason for Visit: ? PAST MEDICAL HISTORY Cardiovascular: CHF, HTN, MT (NSTEMI 05/2017), Other (STRESS INDUCED CARDIOMYOPATHY WITH RECOVERED EF) Pulmonary: COPD (WITH PERSISTENT TOBACCO USE & CHRONIC O2 USE ) GI: No pertinent hx Heme/Onc: No pertinent hx Hepatobiliary: No pertinent hx Psych: Addictions (ETOH) Musculoskeletal: Osteoarthritis Infectious disease: No pertinent hx ENT: No pertinent hx Renal/: No pertinent hx Endocrine: No pertinent hx Dermatology: No pertinent hx PAST SURGICAL HISTORY Past Surgical History: Cholecystectomy, Total hip replacement (BILATERAL) FAMILY HISTORY Family History: Family History Unknown SOCIAL HISTORY Smoke: <1 pack per day (SINCE AGE 34) ALCOHOL: heavy Drugs: None Lives: Alone CURRENT MEDICATIONS CURRENT MEDICATIONS Current Medications Medications (Trade) Dose Ordered Sig/Pam Route PRN Reason Start Time Stop Time Status Last Admin Dose Admin Albuterol/ Ipratropium (Duoneb) 3 ml 1X ONCE NEB 04/03/18 21:30 04/03/18 21:31 DC 04/03/18 21:22 Dexamethasone Sodium Phosphate (Decadron) 10 mg 1X ONCE IV 04/03/18 21:30 04/03/18 21:31 DC 04/04/18 00:05 Sodium Chloride 1,000 ml @ 1,000 mls/hr 1X ONCE IV 04/03/18 21:30 04/03/18 22:29 DC 04/04/18 00:05 Albuterol/ Ipratropium (Duoneb) 3 ml RTQID NEB 04/04/18 08:00 04/05/18 07:59 04/04/18 11:06 Multivitamins 10 ml/Thiamine HCl 100 mg/Folic Acid 1 mg/Sodium Chloride 1,011.2 ml @ 250 mls/ hr 1X ONCE IV 04/04/18 01:30 04/04/18 05:32 DC 04/04/18 04:47 Furosemide (Lasix) 40 mg DAILY PO 04/04/18 09:00 04/04/18 08:31 Carvedilol (Coreg) 25 mg BIDWMEALS PO 04/04/18 09:00 04/04/18 08:29 Diltiazem HCl (Cardizem 24hr Cd) 180 mg DAILY PO 04/04/18 09:00 04/04/18 08:31 Gabapentin (Neurontin) 300 mg TID PO 04/04/18 09:00 04/04/18 08:31 Hydralazine HCl (Apresoline) 25 mg TID PO 04/04/18 09:00 04/04/18 09:13 Losartan Potassium (Cozaar) 100 mg DAILY PO 04/04/18 09:00 04/04/18 08:30 Tramadol HCl (Ultram) 50 mg PRN TID PRN PO PAIN 04/04/18 08:15 04/04/18 08:30 Labetalol HCl (Normodyne Iv Push) 10 mg 1X ONCE IVP 04/04/18 08:30 04/04/18 08:31 DC 04/04/18 08:28 ALLERGIES ALLERGIES: Coded Allergies: Penicillins (Verified Allergy, Intermediate, 04/21/16) Sulfa (Sulfonamide Antibiotics) (Verified Allergy, Intermediate, 04/21/16) iodine (Verified Allergy, Intermediate, 04/21/16) piperacillin (Unverified Allergy, Intermediate, 06/10/17) ROS General: No: Chills, Night Sweats, Fatigue, Malaise, Appetite, Other PSYCHOLOGICAL ROS: No: Anxiety, Behavioral Disorder, Concentration difficultie , Decreased libido, Depression, Disorientation, Hallucinations, Hostility, Irritablity, Memory difficulties, Mood Swings, Obsessive thoughts, Physical abuse, Sexual abuse, Sleep disturbances, Suicidal ideation, Other Eyes: No Blurry vision, No Decreased vision, No Double vision, No Dry eyes, No Excessive tearing, No Eye Pain, No Itchy Eyes, No Loss of vision, No Photophobia , No Scotomata, No Uses contacts, No Uses glasses, No Other HEENT: No: Heacaches, Visual Changes, Hearing change, Nasal congestion, Nasal discharge, Oral lesions, Sinus pain, Sore Throat, Epistaxis, Sneezing, Snoring, Tinnitus, Vertigo, Vocal changes, Other ALLERGY AND IMMUNOLOGY: No: Hives, Insect Bite Sensitivity, Itchy/Watery Eyes, Nasal Congestion, Post Nasal Drip, Seasonal Allergies, Other Hematological and Lymphatic: No: Bleeding Problems, Blood Clots, Blood Transfusions, Brusing, Night Sweats, Pallor, Swollen Lymph Nodes, Other ENDOCRINE: No: Breast Changes, Galactorrhea, Hair Pattern Changes, Hot Flashes , Malaise/lethargy, Mood Swings, Palpitations, Polydipsia/polyuria, Skin Changes , Temperature Intolerance, Unexpected Weight Changes, Other Breast: No New/Changing Breast Lumps, No Nipple changes, No Nipple discharge, No Other Respiratory: No: Cough, Hemoptysis, Orthopnea, Pleuritic Pain, Shortness of breath, SOB with excertion, Sputum Changes, Stridor, Tachypnea, Wheezing, Other Cardiovascular: yes Edema (OCCASIONAL IF LEGS IN DEPENDENT POSITION ); No Chest Pain, No Palpitations, No Orthopnea, No Paroxysmal Noc. Dyspnea, No Lt Headedness, No Other Gastrointestinal: No Nausea, No Vomiting, No Abdominal Pain, No Diarrhea, No Constipation, No Melena, No Hematochezia, No Other Genitourinary: No Dysuria, No Frequency, No Incontinence, No Hematuria, No Retention, No Discharge, No Urgency, No Pain, No Flank Pain, No Other Neurological: No Behavorial Changes, No Bowel/Bladder ControlChng, No Confusion , No Dizziness, No Gait Disturbance, No Headaches, No Impaired Coord/balance, No Memory Loss, No Numbness/Tingling, No Seizures, No Speech Problems, No Tremors, No Visual Changes, No Weakness, No Other Skin: No Dry Skin, No Eczema, No Hair Changes, No Lumps, No Mole Changes, No Mottling, No Nail Changes, No Pruritus, No Rash, No Skin Lesion Changes, No Other, No Acne PHYSICAL EXAM General: Alert, Oriented X3, Cooperative HEENT: Atraumatic Lungs: Other (EXP WHEEZING AND RHONCHII WITH COUGH; NO CRACKLES) Heart: Normal S1, Normal S2, No murmurs Abdomen: Normal bowel sounds, Soft Extremities: No edema, Normal pulses Skin: No rashes Neuro: Normal speech Psych/Mental Status: Mental status NL, Mood NL MUSCULOSKELETAL: No deformity VITALS VITALS Vital Signs Date Time Temp Pulse Resp B/P (MAP) Pulse Ox O2 Delivery O2 Flow Rate FiO2 04/04/18 11:23 98.4 73 20 147/69 (95) 98 Room Air 98.4 04/04/18 11:07 2.0 LABS Lab: Laboratory Tests Test 04/03/18 22:25 04/03/18 23:10 04/04/18 08:00 Urine Collection Type Unknown Urine Color Yellow Urine Clarity Clear Urine pH 5.0 Urine Specific [place] 1.010 Urine Protein Negative mg/dL (NEG-TRACE) Urine Glucose (UA) Negative mg/dL (NEG) Urine Ketones (Stick) Negative mg/dL (NEG) Urine Blood Negative (NEG) Urine Nitrite Negative (NEG) Urine Bilirubin Negative (NEG) Urine Urobilinogen Dipstick 0.2 mg/dL (0.2 mg/dL) Urine Leukocyte Esterase Negative (NEG) Urine RBC Occ /HPF (0-2) Urine WBC Occ /HPF (0-4) Urine Squamous Epithelial Cells Mod /LPF Urine Bacteria Few /HPF (0-FEW) Urine Mucus Slight /LPF Urine Opiates Screen Neg (NEG) Urine Methadone Screen Neg (NEG) Urine Barbiturates Neg (NEG) Urine Phencyclidine Screen Neg (NEG) Urine Amphetamine/Methamphetamine Neg (NEG) Urine Benzodiazepines Screen Neg (NEG) Urine Cocaine Screen Neg (NEG) Urine Cannabinoids Screen Neg (NEG) Urine Ethyl Alcohol Pos (NEG) White Blood Count 8.9 x10^3/uL (4.0-11.0) Red Blood Count 4.43 x10^6/uL (3.50-5.40) Hemoglobin 13.5 g/dL (12.0-15.5) Hematocrit 40.4 % (36.0-47.0) Mean Corpuscular Volume 91 fL (79-100) Mean Corpuscular Hemoglobin 31 pg (25-35) Mean Corpuscular Hemoglobin Concent 34 g/dL (31-37) Red Cell Distribution Width 15.0 % (11.5-14.5) Platelet Count 241 x10^3/uL (140-400) Neutrophils (%) (Auto) 40 % (31-73) Lymphocytes (%) (Auto) 49 % (24-48) Monocytes (%) (Auto) 8 % (0-9) Eosinophils (%) (Auto) 2 % (0-3) Basophils (%) (Auto) 1 % (0-3) Neutrophils # (Auto) 3.6 x10^3uL (1.8-7.7) Lymphocytes # (Auto) 4.4 x10^3/uL (1.0-4.8) Monocytes # (Auto) 0.7 x10^3/uL (0.0-1.1) Eosinophils # (Auto) 0.2 x10^3/uL (0.0-0.7) Basophils # (Auto) 0.1 x10^3/uL (0.0-0.2) Segmented Neutrophils % 42 % (35-66) Band Neutrophils % 1 % (0-9) Lymphocytes % 52 % (24-48) Monocytes % 3 % (0-10) Eosinophils % 2 % (0-5) Platelet Estimate Adequate (ADEQUATE) Sodium Level 142 mmol/L (136-145) Potassium Level 4.1 mmol/L (3.5-5.1) Chloride Level 106 mmol/L (98-107) Carbon Dioxide Level 23 mmol/L (21-32) Anion Gap 13 (6-14) Blood Urea Nitrogen 14 mg/dL (7-20) Creatinine 0.8 mg/dL (0.6-1.0) Estimated GFR (Cockcroft-Gault) 83.5 BUN/Creatinine Ratio 18 (6-20) Glucose Level 155 mg/dL (70-99) Calcium Level 9.2 mg/dL (8.5-10.1) Magnesium Level 1.9 mg/dL (1.8-2.4) Total Bilirubin 0.3 mg/dL (0.2-1.0) Aspartate Amino Transf (AST/SGOT) 83 U/L (15-37) Alanine Aminotransferase (ALT/SGPT) 93 U/L (14-59) Alkaline Phosphatase 79 U/L (46-116) Creatine Kinase 523 U/L (26-192) Creatine Kinase MB (Mass) 6.0 ng/mL (0.0-3.6) Creatine Kinase MB Relative Index 1.1 % (0-4) Troponin I Quantitative < 0.017 ng/mL (0.000-0.055) KZ-Nly-B-Type Natriuretic Peptide 169 pg/mL (0-449) Total Protein 7.7 g/dL (6.4-8.2) Albumin 3.7 g/dL (3.4-5.0) Albumin/Globulin Ratio 0.9 (1.0-1.7) Lipase 118 U/L (73-393) Thyroid Stimulating Hormone (TSH) 1.172 uIU/mL (0.358-3.74) Ethyl Alcohol Level 213 mg/dL (0-10) 55 mg/dL (0-10) IMAGES IMAGES CXR: 04/03/2017 FINDINGS: No pneumothorax identified. Cardiac and mediastinal contours unremarkable. No pulmonary consolidation or acute airspace disease. No acute osseous abnormalities identified. IMPRESSION: No pulmonary consolidation or acute airspace disease. EKG EKG SINUS RHYTHM PROLONGED NE INTERVAL RBBB ECHOCARDIOGRAM ECHOCARDIOGRAM 05/25/2017: TTE: Left ventricle systolic function is severely impaired. The Ejection Fraction is 15-20%. There is global hypokinesis of the left ventricle. The distal 2/3 of the LV is severely hypokinetic. Suspect either stress induced cardiomyopathy or large LAD territory ischemic infarct. Technically very difficult study due to body habitus. 05/29/2017: TTE: Limited echo to assess LV function. Left ventricle systolic function is normal. The Ejection Fraction is 55-60%. There is normal LV segmental wall motion. There is no evidence of significant pericardial effusion. HEART CATH HEART CATH 05/25/2017: HEMODYNAMICS: LVEDP 18 mm Hg No gradient on LV to aortic pullback. LEFT VENTRICULOGRAM: EF 20% Anterobasal: Normal. Anterolateral: Severely hypokinetic Apical: Severely hypokinetic Diaphragmatic: Severely hypokinetic Posterobasal: Normal CORONARY ANGIOGRAPHY: LM is a large caliber vessel with normal angiographic appearance. LAD is a large caliber tortuous vessel with mild luminal irregularities. Ramus is a moderate caliber vessel with normal angiographic apeparance. LCx is a moderate caliber non-dominant vessel with normal angiographic appearance. OM1 is a moderate caliber vessel with normal angiographic appearance. RCA is a moderate caliber vessel with normal angiographic appearance. Conclusion 1. Severe LV dysfunction in a pattern consistent with Stress induced cardiomyopathy. 2. No significant coronary disease. ASSESSMENT/PLAN ASSESSMENT/PLAN 1. CHF --CXR WITHOUT ACUTE FINDINGS --NT-PROBNP NOT CONSISTENT WITH CHF --NO SUPPORTING CLINICAL FINDINGS --CHRONIC DYSPNEA SECONDARY DUE COPD 2. CARDIOMYOPATHY --STRESS INDUCED CARDIOMYOPATHY WITH RECOVERED/NORMALIZED LVEF; 05/2017 --RECHECK LVEF DUE TO HEAVY ETOH USE --CURRENTLY WITHOUT INDICATION FOR ICD PLACEMENT 3. FALLS --NO EVIDENCE OF SYNCOPE --LIKELY ETIOLOGY DUE TO ETOH USE 4. COPD WITH CHRONIC O2 USE AND PERSISTENT TOBACCO ABUSE --DEFER TO PRIMARY SERVICE --? SAFETY WITH HOME OXYGEN 5. ETOH USE/TOBACCO ABUSE VIVEK MEJIA MD 04/04/18 1923: CARDIAC CONSULT ASSESSMENT/PLAN ASSESSMENT/PLAN Pt. seen and examined. Agree with above HOTEL MANAGER note. Cath in 2017 without significant disease. Supportive care. Alcohol cessation. Pls call with questions. outpt titration of medical therapy when patient remains compliant. BASSEM HINSON APRN Apr 04, 2018 14:28 VIVEK MEJIA MD Apr 04, 2018 19:23
[2018-04-04 15:00] VITALS: BP 151/64
--- NOTE | 2018-04-04 15:51 | CARD ---
MR#: [id number] Date of Study: 04/04/2018 Ordering Physician: BASSEM HINSON, Referring Physician: NIKI ROBERTS Tech: Lizeth Valdez [facility] APPROVED REPORT EXAM: Two-dimensional and M-mode echocardiogram with Doppler and color Doppler. Other Information Quality : Fair INDICATION Congestive Heart Failure 2D DIMENSIONS RVDd2.3 (2.9-3.5cm)Left Atrium(2D)3.6 (1.6-4.0cm) IVSd0.7 (0.7-1.1cm)Aortic Root(2D)2.4 (2.0-3.7cm) LVDd4.0 (3.9-5.9cm)LVOT Diameter2.1 (1.8-2.4cm) PWd1.1 (0.7-1.1cm)LVDs1.8 (2.5-4.0cm) FS (%) 30.0 %SV61.7 ml LVEF(%)60.0 (>50%) Aortic Valve AoV Peak Remi.138.9cm/sAoV VTI33.0cm AO Peak GR.7.7mmHgLVOT Peak Remi.101.2cm/s AO Mean GR.4mmHgAVA (VMAX)2.52cm2 MYKE (VTI)2.40cm2 Mitral Valve MV E Quevmdjv85.4cm/sMV DECEL [id number] MV A Mrozmjri924.9cm/sE/A Ratio0.6 Tricuspid Valve TR P. Mdkbvzyh565wy/sRAP AGIFPQED0zhTz TR Peak Gr.36ptNxLSKT44tdBh Pulmonary Vein S1 Vpxggftu49.9cm/sD2 Hweeohlo31.0cm/s LEFT VENTRICLE The left ventricle is normal size. There is normal left ventricular wall thickness. The left ventricu lar systolic function is normal. The Ejection Fraction is 55-60%. There is normal LV segmental wall m otion. Transmitral Doppler flow pattern is Grade I-abnormal relaxation pattern. RIGHT VENTRICLE The right ventricle is normal size. The right ventricular systolic function is normal. ATRIA The left atrium size is normal. The right atrium size is normal. The interatrial septum is intact wit h no evidence for an atrial septal defect or patent foramen ovale as noted on 2-D or Doppler imaging. AORTIC VALVE The aortic valve is mildly thickened but opens well. Doppler and Color Flow revealed no significant a ortic regurgitation. There is no significant aortic valvular stenosis. MITRAL VALVE The mitral valve is calcified but opens well. There is no evidence of mitral valve prolapse. There is no mitral valve stenosis. Doppler and Color Flow revealed no mitral valve regurgitation noted. TRICUSPID VALVE The tricuspid valve is normal in structure and function. Doppler and Color Flow revealed trace tricus pid regurgitation. The PA pressure was estimated at 18 mmHg. There is no tricuspid valve stenosis. PULMONIC VALVE The pulmonic valve is not well visualized. Doppler and Color Flow revealed no pulmonic valvular regur gitation. There is no pulmonic valvular stenosis. GREAT VESSELS The aortic root is normal in size. The ascending aorta is normal in size. The IVC was not visualized. PERICARDIAL EFFUSION There is no evidence of significant pericardial effusion. Critical Notification Critical Value: No <Conclusion> The left ventricular systolic function is normal. The Ejection Fraction is 55-60%. There is normal LV segmental wall motion. Transmitral Doppler flow pattern is Grade I-abnormal relaxation pattern. Trace tricuspid regurgitation. The PA pressure was estimated at 18 mmHg. There is no evidence of significant pericardial effusion. Signed by : Ta Sparks, Electronically Approved : 04/04/2018 15:50:53
[2018-04-04 19:00] VITALS: BP 140/85
[2018-04-04] MEDS: ATORVASTATIN CALCIUM 20 MG TABLET PO SCH (21:24)
[2018-04-04 23:00] VITALS: BP 130/54
[2018-04-05 03:00] VITALS: BP 183/82
[2018-04-05 07:00] VITALS: BP 173/77
[2018-04-05] MEDS: traMADol 50 MG TABLET PO PRN ×2 (09:09→14:33)
[2018-04-05] MEDS: MULTIVITAMIN with MINERAL TABLET. PO SCH (09:09)
[2018-04-05] MEDS: FUROSEMIDE 40 MG TABLET. PO SCH (09:09)
[2018-04-05] MEDS: GABAPENTIN 300 MG CAPSULE. PO SCH ×3 (09:09→20:29)
[2018-04-05] MEDS: THIAMINE 100 MG TABLET. PO SCH (09:09)
[2018-04-05] MEDS: FOLIC ACID 1 MG TABLET. PO SCH (09:09)
[2018-04-05] MEDS: hydrALAZINE 25 MG TABLET PO SCH ×3 (09:10→20:30)
[2018-04-05] MEDS: LOSARTAN POTASSIUM 50 MG TABLET. PO SCH (09:10)
[2018-04-05] MEDS: CARVEDILOL 12.5 MG TABLET. PO SCH ×2 (09:11→18:04)
--- NOTE | 2018-04-05 10:52 | PDOC ---
PROGRESS NOTES Chief Complaint Chief Complaint CC presents from home, by EMS, EMS crew reports this patient has been picked up 5 times from the floor in her own house after falling. patient needed oxygen at home when she was picked up. has history of COPD and uses oxygen as needed. History of Present Illness History of Present Illness Impression: Fall GAIT instability FREQUENT FALLS ALCOHOL ABUSE COPD (chronic obstructive pulmonary disease) HYPERTENSION CHRONIC PAIN dental caries PLAN OFFERED ETOH REHAB PT/OT TELE BED ALARM HIGH FALL RISK D/C TRAMADOL DUE TO ETOH USE Vitals Vitals Vital Signs Date Time Temp Pulse Resp B/P (MAP) Pulse Ox O2 Delivery O2 Flow Rate FiO2 04/05/18 10:09 20 99 Room Air 2.0 04/05/18 09:11 56 173/77 04/05/18 07:00 98.4 98.4 Physical Exam Physical Exam Review of Systems Review of Systems Constitutional: Denies fever or chills [] Eyes: Denies change in visual acuity, redness, or eye pain [] HENT: Denies nasal congestion or sore throat [] Respiratory: Reports shortness of breath. Denies cough Cardiovascular: No additional information not addressed in HPI [] GI: Denies abdominal pain, nausea, vomiting, bloody stools or diarrhea [] : Denies dysuria or hematuria [] Musculoskeletal: Multiple falls today. Integument: Denies rash or skin lesions [] Neurologic: Denies headache, focal weakness or sensory changes [] 14 systems were reviewed and found to be within normal limits, except as documented General: Alert, Oriented X3, Cooperative, mild distress, Other (multiple caries ) Heart: Regular rate, Normal S1, Normal S2, No murmurs Lungs: Clear Abdomen: Normal bowel sounds, Soft Extremities: No edema, Normal pulses Skin: No rashes Assessment and Plan Assessmemt and Plan Problems Medical Problems: (1) COPD (chronic obstructive pulmonary disease) Status: Acute (2) ETOH abuse Status: Acute (3) Fall Status: Acute Comment Review of Relevant I have reviewed the following items pricila (where applicable) has been applied. Labs Laboratory Tests Test 04/03/18 22:25 04/03/18 23:10 04/04/18 08:00 Urine Collection Type Unknown Urine Color Yellow Urine Clarity Clear Urine pH 5.0 Urine Specific [place] 1.010 Urine Protein Negative mg/dL (NEG-TRACE) Urine Glucose (UA) Negative mg/dL (NEG) Urine Ketones (Stick) Negative mg/dL (NEG) Urine Blood Negative (NEG) Urine Nitrite Negative (NEG) Urine Bilirubin Negative (NEG) Urine Urobilinogen Dipstick 0.2 mg/dL (0.2 mg/dL) Urine Leukocyte Esterase Negative (NEG) Urine RBC Occ /HPF (0-2) Urine WBC Occ /HPF (0-4) Urine Squamous Epithelial Cells Mod /LPF Urine Bacteria Few /HPF (0-FEW) Urine Mucus Slight /LPF Urine Opiates Screen Neg (NEG) Urine Methadone Screen Neg (NEG) Urine Barbiturates Neg (NEG) Urine Phencyclidine Screen Neg (NEG) Urine Amphetamine/Methamphetamine Neg (NEG) Urine Benzodiazepines Screen Neg (NEG) Urine Cocaine Screen Neg (NEG) Urine Cannabinoids Screen Neg (NEG) Urine Ethyl Alcohol Pos (NEG) White Blood Count 8.9 x10^3/uL (4.0-11.0) Red Blood Count 4.43 x10^6/uL (3.50-5.40) Hemoglobin 13.5 g/dL (12.0-15.5) Hematocrit 40.4 % (36.0-47.0) Mean Corpuscular Volume 91 fL (79-100) Mean Corpuscular Hemoglobin 31 pg (25-35) Mean Corpuscular Hemoglobin Concent 34 g/dL (31-37) Red Cell Distribution Width 15.0 % (11.5-14.5) Platelet Count 241 x10^3/uL (140-400) Neutrophils (%) (Auto) 40 % (31-73) Lymphocytes (%) (Auto) 49 % (24-48) Monocytes (%) (Auto) 8 % (0-9) Eosinophils (%) (Auto) 2 % (0-3) Basophils (%) (Auto) 1 % (0-3) Neutrophils # (Auto) 3.6 x10^3uL (1.8-7.7) Lymphocytes # (Auto) 4.4 x10^3/uL (1.0-4.8) Monocytes # (Auto) 0.7 x10^3/uL (0.0-1.1) Eosinophils # (Auto) 0.2 x10^3/uL (0.0-0.7) Basophils # (Auto) 0.1 x10^3/uL (0.0-0.2) Segmented Neutrophils % 42 % (35-66) Band Neutrophils % 1 % (0-9) Lymphocytes % 52 % (24-48) Monocytes % 3 % (0-10) Eosinophils % 2 % (0-5) Platelet Estimate Adequate (ADEQUATE) Sodium Level 142 mmol/L (136-145) Potassium Level 4.1 mmol/L (3.5-5.1) Chloride Level 106 mmol/L (98-107) Carbon Dioxide Level 23 mmol/L (21-32) Anion Gap 13 (6-14) Blood Urea Nitrogen 14 mg/dL (7-20) Creatinine 0.8 mg/dL (0.6-1.0) Estimated GFR (Cockcroft-Gault) 83.5 BUN/Creatinine Ratio 18 (6-20) Glucose Level 155 mg/dL (70-99) Calcium Level 9.2 mg/dL (8.5-10.1) Magnesium Level 1.9 mg/dL (1.8-2.4) Total Bilirubin 0.3 mg/dL (0.2-1.0) Aspartate Amino Transf (AST/SGOT) 83 U/L (15-37) Alanine Aminotransferase (ALT/SGPT) 93 U/L (14-59) Alkaline Phosphatase 79 U/L (46-116) Creatine Kinase 523 U/L (26-192) Creatine Kinase MB (Mass) 6.0 ng/mL (0.0-3.6) Creatine Kinase MB Relative Index 1.1 % (0-4) Troponin I Quantitative < 0.017 ng/mL (0.000-0.055) [id number]-Fki-[id number]-Type Natriuretic Peptide 169 pg/mL (0-449) Total Protein 7.7 g/dL (6.4-8.2) Albumin 3.7 g/dL (3.4-5.0) Albumin/Globulin Ratio 0.9 (1.0-1.7) Lipase 118 U/L (73-393) Thyroid Stimulating Hormone (TSH) 1.172 uIU/mL (0.358-3.74) Ethyl Alcohol Level 213 mg/dL (0-10) 55 mg/dL (0-10) Medications Current Medications Albuterol/ Ipratropium (Duoneb) 3 ml 1X ONCE NEB Last administered on at 21:22; Start 8/21/18 at 21:30; Stop 04/03/18 at 21:31; Status DC Dexamethasone Sodium Phosphate (Decadron) 10 mg 1X ONCE IV Last administered on 04/04/18at 00:05; Start 04/03/18 at 21:30; Stop 04/03/18 at 21:31; Status DC Sodium Chloride 1,000 ml @ 1,000 mls/hr 1X ONCE IV Last administered on at 00:05; Start 04/03/18 at 21:30; Stop 04/03/18 at 22:29; Status DC Ondansetron HCl (Zofran) 4 mg PRN Q8HRS PRN IV NAUSEA/VOMITING 1ST CHOICE; Start 04/04/18 at 00:45; Stop 04/05/18 at 00:44; Status DC Morphine Sulfate (Morphine Sulfate) 4 mg PRN Q2HR PRN IV SEVERE PAIN; Start at 00:45; Stop 04/05/18 at 00:44; Status DC Acetaminophen (Tylenol) 650 mg PRN Q4HRS PRN PO FEVER; Start 04/04/18 at 00:45 ; Stop 04/05/18 at 00:44; Status DC Albuterol/ Ipratropium (Duoneb) 3 ml RTQID NEB Last administered on 04/04/18at 19:40; Start 04/04/18 at 08:00; Stop 04/05/18 at 07:59; Status DC Lorazepam (Ativan) 2 mg PRN Q15MIN PRN IV ETOH WITHDRAWAL; Start 04/04/18 at 00 :45 Multivitamins 10 ml/Thiamine HCl 100 mg/Folic Acid 1 mg/Sodium Chloride 1,011.2 ml @ 250 mls/ hr 1X ONCE IV Last administered on 04/04/18at 04:47; Start 04/04 at 01:30; Stop 04/04/18 at 05:32; Status DC Atorvastatin Calcium (Lipitor) 20 mg HS PO Last administered on 04/04/18at 21:24 ; Start 04/04/18 at 21:00 Furosemide (Lasix) 40 mg DAILY PO Last administered on 04/05/18at 09:09; Start 04/04/18 at 09:00 Carvedilol (Coreg) 25 mg BIDWMEALS PO Last administered on 04/05/18 09:11; Start 04/04/18 at 09:00 Diltiazem HCl (Cardizem 24hr Cd) 180 mg DAILY PO Last administered on 09:08; Start 04/04/18 at 09:00 Gabapentin (Neurontin) 300 mg TID PO Last administered on 04/05/18 09:09; Start 04/04/18 at 09:00 Hydralazine HCl (Apresoline) 25 mg TID PO Last administered on 04/05/18 09:10 ; Start 04/04/18 at 09:00 Losartan Potassium (Cozaar) 100 mg DAILY PO Last administered on 04/05/18 09: 10; Start 04/04/18 at 09:00 Tramadol HCl (Ultram) 50 mg PRN TID PRN PO PAIN Last administered on 04/05/18 09:09; Start 04/04/18 at 08:15 Labetalol HCl (Normodyne Iv Push) 10 mg 1X ONCE IVP Last administered on at 08:28; Start 04/04/18 at 08:30; Stop 04/04/18 at 08:31; Status DC Thiamine Mononitrate (Vitamin B-1) 100 mg DAILY PO Last administered on 09:09; Start 04/05/18 at 09:00 Folic Acid (Folic Acid) 1 mg DAILY PO Last administered on 04/05/18 09:09; Start 04/05/18 at 09:00 Multivitamins (Thera M Plus) 1 tab DAILY PO Last administered on 04/05/18 09: 09; Start 04/05/18 at 09:00 Active Scripts Active Reported Gabapentin 300 Mg Capsule 300 Mg PO TID 30 Days Cardizem Cd (Diltiazem Hcl) 180 Mg Cap.er.24h 1 Cap PO DAILY Hydralazine Hcl 25 Mg Tablet 1 Tab PO TID Atorvastatin Calcium 20 Mg Tablet 20 Mg PO HS Losartan Potassium 100 Mg Tablet 100 Mg PO DAILY Carvedilol 25 Mg Tablet 1 Tab PO BIDWMEALS Vitals/I & O Vital Sign - Last 24 Hours 04/04/18 04/04/18 04/04/18 04/04/18 11:07 11:23 14:00 14:01 Temp 98.4 98.4 Pulse 73 62 Resp 20 18 B/P (MAP) 147/69 (95) 169/70 Pulse Ox 98 98 O2 Delivery Nasal Cannula Room Air Nasal Cannula O2 Flow Rate 2.0 2.0 04/04/18 04/04/18 04/04/18 04/04/18 15:00 15:58 16:54 19:00 Temp 97.6 98.0 97.6 98.0 Pulse 63 63 65 Resp 24 18 B/P (MAP) 151/64 (93) 151/64 140/85 (103) Pulse Ox 96 95 O2 Delivery Room Air Nasal Cannula O2 Flow Rate 2.0 04/04/18 04/04/18 04/04/18 04/04/18 19:52 20:00 21:25 23:00 Temp 98.1 98.1 Pulse 65 68 Resp 20 B/P (MAP) 140/85 130/54 (79) Pulse Ox 95 O2 Delivery Nasal Cannula Nasal Cannula O2 Flow Rate 2.0 2.0 04/05/18 04/05/18 04/05/18 04/05/18 03:00 07:00 07:47 08:04 Temp 98.2 98.4 98.2 98.4 Pulse 59 56 Resp 18 20 B/P (MAP) 183/82 (115) 173/77 (109) Pulse Ox 94 99 O2 Delivery Room Air Room Air Room Air 04/05/18 04/05/18 04/05/18 04/05/18 09:08 09:09 09:10 09:10 Pulse 56 56 56 Resp 18 B/P (MAP) 173/77 173/77 173/77 Pulse Ox 99 O2 Delivery Room Air 04/05/18 04/05/18 09:11 10:09 Pulse 56 Resp 20 B/P (MAP) 173/77 Pulse Ox 99 O2 Delivery Room Air O2 Flow Rate 2.0 Intake and Output 04/04/18 04/04/18 04/05/18 15:00 23:00 07:00 Intake Total 240 ml 840 ml 200 ml Balance 240 ml 840 ml 200 ml OSCAR MANNING MD Apr 05, 2018 10:52
[2018-04-05 11:00] VITALS: BP 155/74
[2018-04-05 15:18] VITALS: BP 130/53
[2018-04-05 15:55] LABS: BASO % 0 % (0-3); EOS % 0 % (0-3); HEMOGLOBIN 11.4 g/dL (12.0-15.5); LYMPH # 2.3 x10^3/uL (1.0-4.8); LYMPH % 17 % (24-48); MEAN CORPUSCULAR HEMOGLOBIN 30 pg (25-35); MEAN CORPUSCULAR HGB CONC 33 g/dL (31-37); MEAN CORPUSCULAR VOLUME 91 fL (79-100); MONO # 0.7 x10^3/uL (0.0-1.1); MONO % 5 % (0-9); NEUT # 10.8 x10^3uL (1.8-7.7); NEUT % 78 % (31-73); PLATELET COUNT 244 x10^3/uL (140-400); RED BLOOD COUNT 3.87 x10^6/uL (3.50-5.40); RED CELL DISTRIBUTION WIDTH 15.4 % (11.5-14.5); WHITE BLOOD COUNT 13.8 x10^3/uL (4.0-11.0)
[2018-04-05 16:12] LABS: ALBUMIN 3.1 g/dL (3.4-5.0); ALBUMIN/GLOBULIN RATIO 0.8 (1.0-1.7); CALCIUM 8.5 mg/dL (8.5-10.1); GFR 64.6; TOTAL BILIRUBIN 0.3 mg/dL (0.2-1.0); TOTAL PROTEIN 7.2 g/dL (6.4-8.2)
--- NOTE | 2018-04-05 16:34 | RAD ---
Carotid ultrasound, 04/05/2018: HISTORY: TIA, frequent falls Duplex evaluation of the carotid arteries and neck was performed including grayscale, color-flow and spectral Doppler analysis. There is mild intimal thickening in the common carotid arteries with mild atherosclerotic plaquing at both carotid bifurcations. The left plaquing is partially calcified. The peak systolic velocity in the right internal carotid artery is 44 cm per sec with an end-diastolic velocity of 10 cm/s and an internal carotid to common carotid artery ratio of 0.7. The peak systolic velocity in the left internal carotid artery is 52 cm per sec with an end-diastolic velocity of 9 cm/s and an internal carotid to common carotid artery ratio of 0.8. These Doppler findings do not suggest significant stenosis. Antegrade flow is present in both vertebral arteries in the neck. IMPRESSION: Mild atherosclerotic plaquing at both carotid bifurcations with underlying luminal narrowing in the 0-50 percent diameter range bilaterally. Note: Stenosis calculations for CT, MRA and conventional angiography are based upon determination of the distal ICA diameter in accordance with the NASCET methodology. Stenosis calculations for Doppler studies are derived from validated velocity criteria which are known to correlate with NASCET methodology of determining stenosis. Electronically signed by: Omari Starks MD (04/05/2018 4:31 PM) [facility]
[2018-04-05 19:00] VITALS: BP 137/60
[2018-04-05] MEDS: ATORVASTATIN CALCIUM 20 MG TABLET PO SCH (20:29)
--- NOTE | 2018-04-05 20:46 | PDOC2 ---
NEUROLOGY CONSULT Date of Admission Date of Admission DATE: 04/05/18 TIME: 20:33 Reason for Consult Reason for Consult: IMPRESSION: Metabolic encephalopathy. Toxic encephalopathy. Alcohol intoxication, level 213 on 04/03. Frequent falls. COPD. CHF. HTN. Left renal solid mass. DM. Alcohol abuse. Smoking. Hepatic injury. Obesity. RECOMMENDATIONS/PLAN: Alcohol intoxication treatment. Vit B1 100 mg daily. EEG. C-spine CT. Lab: see orders. Treat medical diseases. OT/PT. HISTORY OF THE PRESENT ILLNESS: 82-y-old AA female patient with above medical diseases and alcohol use/abuse was admitted this time due to frequent falls. She had 5 falls on the day of admission. Neurology was requested for consultation on 04/05 for frequent falls. PAST MEDICAL HISTORY Cardiovascular: CHF, HTN, RI (NSTEMI 05/2017), Other (STRESS INDUCED CARDIOMYOPATHY WITH RECOVERED EF) Pulmonary: COPD (WITH PERSISTENT TOBACCO USE & CHRONIC O2 USE ) GI: No pertinent hx Heme/Onc: No pertinent hx Hepatobiliary: No pertinent hx Psych: Addictions (ETOH) Musculoskeletal: Osteoarthritis Infectious disease: No pertinent hx ENT: No pertinent hx Renal/: No pertinent hx Endocrine: No pertinent hx Dermatology: No pertinent hx PAST SURGICAL HISTORY Cholecystectomy, Total hip replacement (BILATERAL) FAMILY HISTORY Unknown SOCIAL HISTORY Smoke: <1 pack per day (SINCE AGE 34) ALCOHOL: heavy Drugs: None Lives: Alone ALLERGY: Reviewed. MEDICATIONS: Refer to [facility] REVIEW OF SYSTEMS: Constitutional: Obesity. Head: No traumatic brain or head injury. Skin: No edema, or rash. Ear: No infection. Eyes: No vision loss or color blindness. Nose: No bleeding or purulent discharges. Hearing: Hearing decrease. Neck: No injury. Breast: No history of cancer, masses,or discharges. Cardiac: CHF, HTN. Pulmonary: No COPD. GI: No GI ulcer, GI bleeding. Urinary/genital: UTI. Endocrinologic: Diabetes Mellitus, obesity. Skeletomuscular: Generalized weakness. Neurological: see HP. Psychiatric: Denies drug use/abuse. Otherwise, not [id number] review of systems. PHYSICAL EXAMINATION: General appearance is in subacute distress. HEENT: Normocephalic and nontraumatic. Eyes, nose, ears, and throat are unremarkable. Neck is supple. No lymphadenopathy. No crepitus. Cardiovascular: S1, S2, regular rate and rhythm. Pulmonary: Clear to auscultation bilaterally. Abdomen: Bowel sounds are positive. Abdomen is soft, nontender, and nondistended. Extremities: No rash, lesions, or edema. No restriction of range of motion NEUROLOGICAL EXAMINATION: Sleeping but arousable. Not fully oriented to time, place and person. PERRL. EOMI. CN: no focal findings. Muscle tone: within normal. Muscle strength: 4 DTR: 0-1 due to obesity. Plantar reflex: Neutral response bilaterally Gait: not examined in bed. Sensory exam: no abnormal findings. Not able to access cerebellar signs. F-T-N test not performed due to not follow commands. Current Medications Current Medications Current Medications Albuterol/ Ipratropium (Duoneb) 3 ml 1X ONCE NEB Last administered on at 21:22; Start 04/03/18 at 21:30; Stop 04/03/18 at 21:31; Status DC Dexamethasone Sodium Phosphate (Decadron) 10 mg 1X ONCE IV Last administered on 04/04/18at 00:05; Start 04/03/18 at 21:30; Stop 04/03/18 at 21:31; Status DC Sodium Chloride 1,000 ml @ 1,000 mls/hr 1X ONCE IV Last administered on at 00:05; Start 04/03/18 at 21:30; Stop 04/03/18 at 22:29; Status DC Ondansetron HCl (Zofran) 4 mg PRN Q8HRS PRN IV NAUSEA/VOMITING 1ST CHOICE; Start 04/04/18 at 00:45; Stop 04/05/18 at 00:44; Status DC Morphine Sulfate (Morphine Sulfate) 4 mg PRN Q2HR PRN IV SEVERE PAIN; Start at 00:45; Stop 04/05/18 at 00:44; Status DC Acetaminophen (Tylenol) 650 mg PRN Q4HRS PRN PO FEVER; Start 04/04/18 at 00:45 ; Stop 04/05/18 at 00:44; Status DC Albuterol/ Ipratropium (Duoneb) 3 ml RTQID NEB Last administered on 04/04/18at 19:40; Start 04/04/18 at 08:00; Stop 04/05/18 at 07:59; Status DC Lorazepam (Ativan) 2 mg PRN Q15MIN PRN IV ETOH WITHDRAWAL; Start 04/04/18 at 00 :45 Multivitamins 10 ml/Thiamine HCl 100 mg/Folic Acid 1 mg/Sodium Chloride 1,011.2 ml @ 250 mls/ hr 1X ONCE IV Last administered on 04/04/18 04:47; Start 04/04 at 01:30; Stop 04/04/18 at 05:32; Status DC Atorvastatin Calcium (Lipitor) 20 mg HS PO Last administered on 04/05/18 20:29 ; Start 04/04/18 at 21:00 Furosemide (Lasix) 40 mg DAILY PO Last administered on 04/05/18 09:09; Start 04/04/18 at 09:00 Carvedilol (Coreg) 25 mg BIDWMEALS PO Last administered on 04/05/18 18:04; Start 04/04/18 at 09:00 Diltiazem HCl (Cardizem 24hr Cd) 180 mg DAILY PO Last administered on 09:08; Start 04/04/18 at 09:00 Gabapentin (Neurontin) 300 mg TID PO Last administered on 04/05/18 20:29; Start 04/04/18 at 09:00 Hydralazine HCl (Apresoline) 25 mg TID PO Last administered on 04/05/18 20:30 ; Start 04/04/18 at 09:00 Losartan Potassium (Cozaar) 100 mg DAILY PO Last administered on 04/05/18 09: 10; Start 04/04/18 at 09:00 Tramadol HCl (Ultram) 50 mg PRN TID PRN PO PAIN Last administered on 04/05/18 14:33; Start 04/04/18 at 08:15 Labetalol HCl (Normodyne Iv Push) 10 mg 1X ONCE IVP Last administered on 08:28; Start 04/04/18 at 08:30; Stop 04/04/18 at 08:31; Status DC Thiamine Mononitrate (Vitamin B-1) 100 mg DAILY PO Last administered on 09:09; Start 04/05/18 at 09:00 Folic Acid (Folic Acid) 1 mg DAILY PO Last administered on 04/05/18 09:09; Start 8/23/18 at 09:00 Multivitamins (Thera M Plus) 1 tab DAILY PO Last administered on 04/05/18at 09: 09; Start 04/05/18 at 09:00 Guaifenesin (Mucinex) 1,200 mg BID PO Last administered on 04/05/18at 20:29; Start 04/05/18 at 14:00 Active Scripts Active Reported Gabapentin 300 Mg Capsule 300 Mg PO TID 30 Days Cardizem Cd (Diltiazem Hcl) 180 Mg Cap.er.24h 1 Cap PO DAILY Hydralazine Hcl 25 Mg Tablet 1 Tab PO TID Atorvastatin Calcium 20 Mg Tablet 20 Mg PO HS Losartan Potassium 100 Mg Tablet 100 Mg PO DAILY Carvedilol 25 Mg Tablet 1 Tab PO BIDWMEALS Allergies Allergies: Allergies Coded Allergies Type Severity Reaction Last Updated Verified Penicillins Allergy Intermediate 04/21/16 Yes Sulfa (Sulfonamide Antibiotics) Allergy Intermediate 04/21/16 Yes iodine Allergy Intermediate 04/21/16 Yes piperacillin Allergy Intermediate 04/05/18 Yes ROS Review of System The patient denies any associated fevers, chills, headache, ear pain, rhinorrhea , sore throat, stiff neck, productive cough, chest pain, shortness of breath, back or flank pain, abdominal pain, nausea, vomiting, diarrhea, constipation, dysuria, rash, numbness, weakness, tingling, incontinence, difficulty ambulating, or diaphoresis. Physical Exam Physical Exam General: Well developed, well nourished, no acute distress, well appearing HEENT: Pupils equally round and reactive to light, EOMI, no discharge, normal conjunctiva Neck: Supple, no nuchal rigidity, no JVD, trachea midline, no tenderness Cardiac: RRR, no murmurs, no gallops, no rubs Chest/Lungs: CTAB, no wheeze, no rhonchi, no crackles Abdomen: soft, non-distended, no guarding, no peritoneal signs, non-tender Back: No tenderness Extremities: no edema, pulses intact, non-tender,capillary refill <3 sec bilateral upper and lower extremities, Neuro: Alert and oriented x 4, no focal deficits, normal speech Vitals Vitals: Vital Signs Date Time Temp Pulse Resp B/P (MAP) Pulse Ox O2 Delivery O2 Flow Rate FiO2 04/05/18 20:30 56 137/60 04/05/18 19:00 98.6 20 100 Nasal Cannula 2.0 98.6 Labs Labs Laboratory Tests Test 04/03/18 22:25 04/03/18 23:10 04/04/18 08:00 04/05/18 15:30 Urine Collection Type Unknown Urine Color Yellow Urine Clarity Clear Urine pH 5.0 Urine Specific [place] 1.010 Urine Protein Negative mg/dL (NEG-TRACE) Urine Glucose (UA) Negative mg/dL (NEG) Urine Ketones (Stick) Negative mg/dL (NEG) Urine Blood Negative (NEG) Urine Nitrite Negative (NEG) Urine Bilirubin Negative (NEG) Urine Urobilinogen Dipstick 0.2 mg/dL (0.2 mg/dL) Urine Leukocyte Esterase Negative (NEG) Urine RBC Occ /HPF (0-2) Urine WBC Occ /HPF (0-4) Urine Squamous Epithelial Cells Mod /LPF Urine Bacteria Few /HPF (0-FEW) Urine Mucus Slight /LPF Urine Opiates Screen Neg (NEG) Urine Methadone Screen Neg (NEG) Urine Barbiturates Neg (NEG) Urine Phencyclidine Screen Neg (NEG) Urine Amphetamine/Methamphetamine Neg (NEG) Urine Benzodiazepines Screen Neg (NEG) Urine Cocaine Screen Neg (NEG) Urine Cannabinoids Screen Neg (NEG) Urine Ethyl Alcohol Pos (NEG) White Blood Count 8.9 x10^3/uL (4.0-11.0) 13.8 x10^3/uL (4.0-11.0) Red Blood Count 4.43 x10^6/uL (3.50-5.40) 3.87 x10^6/uL (3.50-5.40) Hemoglobin 13.5 g/dL (12.0-15.5) 11.4 g/dL (12.0-15.5) Hematocrit 40.4 % (36.0-47.0) 35.0 % (36.0-47.0) Mean Corpuscular Volume 91 fL (79-100) 91 fL (79-100) Mean Corpuscular Hemoglobin 31 pg (25-35) 30 pg (25-35) Mean Corpuscular Hemoglobin Concent 34 g/dL (31-37) 33 g/dL (31-37) Red Cell Distribution Width 15.0 % (11.5-14.5) 15.4 % (11.5-14.5) Platelet Count 241 x10^3/uL (140-400) 244 x10^3/uL (140-400) Neutrophils (%) (Auto) 40 % (31-73) 78 % (31-73) Lymphocytes (%) (Auto) 49 % (24-48) 17 % (24-48) Monocytes (%) (Auto) 8 % (0-9) 5 % (0-9) Eosinophils (%) (Auto) 2 % (0-3) 0 % (0-3) Basophils (%) (Auto) 1 % (0-3) 0 % (0-3) Neutrophils # (Auto) 3.6 x10^3uL (1.8-7.7) 10.8 x10^3uL (1.8-7.7) Lymphocytes # (Auto) 4.4 x10^3/uL (1.0-4.8) 2.3 x10^3/uL (1.0-4.8) Monocytes # (Auto) 0.7 x10^3/uL (0.0-1.1) 0.7 x10^3/uL (0.0-1.1) Eosinophils # (Auto) 0.2 x10^3/uL (0.0-0.7) 0.0 x10^3/uL (0.0-0.7) Basophils # (Auto) 0.1 x10^3/uL (0.0-0.2) 0.0 x10^3/uL (0.0-0.2) Segmented Neutrophils % 42 % (35-66) Band Neutrophils % 1 % (0-9) Lymphocytes % 52 % (24-48) Monocytes % 3 % (0-10) Eosinophils % 2 % (0-5) Platelet Estimate Adequate (ADEQUATE) Sodium Level 142 mmol/L (136-145) 137 mmol/L (136-145) Potassium Level 4.1 mmol/L (3.5-5.1) 4.0 mmol/L (3.5-5.1) Chloride Level 106 mmol/L (98-107) 103 mmol/L (98-107) Carbon Dioxide Level 23 mmol/L (21-32) 27 mmol/L (21-32) Anion Gap 13 (6-14) 7 (6-14) Blood Urea Nitrogen 14 mg/dL (7-20) 17 mg/dL (7-20) Creatinine 0.8 mg/dL (0.6-1.0) 1.0 mg/dL (0.6-1.0) Estimated GFR (Cockcroft-Gault) 83.5 64.6 BUN/Creatinine Ratio 18 (6-20) 17 (6-20) Glucose Level 155 mg/dL (70-99) 222 mg/dL (70-99) Calcium Level 9.2 mg/dL (8.5-10.1) 8.5 mg/dL (8.5-10.1) Magnesium Level 1.9 mg/dL (1.8-2.4) Total Bilirubin 0.3 mg/dL (0.2-1.0) 0.3 mg/dL (0.2-1.0) Aspartate Amino Transf (AST/SGOT) 83 U/L (15-37) 32 U/L (15-37) Alanine Aminotransferase (ALT/SGPT) 93 U/L (14-59) 60 U/L (14-59) Alkaline Phosphatase 79 U/L (46-116) 66 U/L (46-116) Creatine Kinase 523 U/L (26-192) 327 U/L (26-192) Creatine Kinase MB (Mass) 6.0 ng/mL (0.0-3.6) Creatine Kinase MB Relative Index 1.1 % (0-4) Troponin I Quantitative < 0.017 ng/mL (0.000-0.055) QC-Mgb-X-Type Natriuretic Peptide 169 pg/mL (0-449) Total Protein 7.7 g/dL (6.4-8.2) 7.2 g/dL (6.4-8.2) Albumin 3.7 g/dL (3.4-5.0) 3.1 g/dL (3.4-5.0) Albumin/Globulin Ratio 0.9 (1.0-1.7) 0.8 (1.0-1.7) Lipase 118 U/L (73-393) Thyroid Stimulating Hormone (TSH) 1.172 uIU/mL (0.358-3.74) Ethyl Alcohol Level 213 mg/dL (0-10) 55 mg/dL (0-10) Vitamin B12 Level 541 pg/mL (247-911) Laboratory Tests Test 04/05/18 15:30 White Blood Count 13.8 x10^3/uL (4.0-11.0) Red Blood Count 3.87 x10^6/uL (3.50-5.40) Hemoglobin 11.4 g/dL (12.0-15.5) Hematocrit 35.0 % (36.0-47.0) Mean Corpuscular Volume 91 fL (79-100) Mean Corpuscular Hemoglobin 30 pg (25-35) Mean Corpuscular Hemoglobin Concent 33 g/dL (31-37) Red Cell Distribution Width 15.4 % (11.5-14.5) Platelet Count 244 x10^3/uL (140-400) Neutrophils (%) (Auto) 78 % (31-73) Lymphocytes (%) (Auto) 17 % (24-48) Monocytes (%) (Auto) 5 % (0-9) Eosinophils (%) (Auto) 0 % (0-3) Basophils (%) (Auto) 0 % (0-3) Neutrophils # (Auto) 10.8 x10^3uL (1.8-7.7) Lymphocytes # (Auto) 2.3 x10^3/uL (1.0-4.8) Monocytes # (Auto) 0.7 x10^3/uL (0.0-1.1) Eosinophils # (Auto) 0.0 x10^3/uL (0.0-0.7) Basophils # (Auto) 0.0 x10^3/uL (0.0-0.2) Sodium Level 137 mmol/L (136-145) Potassium Level 4.0 mmol/L (3.5-5.1) Chloride Level 103 mmol/L (98-107) Carbon Dioxide Level 27 mmol/L (21-32) Anion Gap 7 (6-14) Blood Urea Nitrogen 17 mg/dL (7-20) Creatinine 1.0 mg/dL (0.6-1.0) Estimated GFR (Cockcroft-Gault) 64.6 BUN/Creatinine Ratio 17 (6-20) Glucose Level 222 mg/dL (70-99) Calcium Level 8.5 mg/dL (8.5-10.1) Total Bilirubin 0.3 mg/dL (0.2-1.0) Aspartate Amino Transf (AST/SGOT) 32 U/L (15-37) Alanine Aminotransferase (ALT/SGPT) 60 U/L (14-59) Alkaline Phosphatase 66 U/L (46-116) Creatine Kinase 327 U/L (26-192) Total Protein 7.2 g/dL (6.4-8.2) Albumin 3.1 g/dL (3.4-5.0) Albumin/Globulin Ratio 0.8 (1.0-1.7) Vitamin B12 Level 541 pg/mL (247-911) NING DIEHL MD Apr 05, 2018 20:46
[2018-04-05 23:00] VITALS: BP 109/49
[2018-04-06] VITALS (7 sets, daily range): BP systolic 106–161; BP diastolic 44–67
[2018-04-06 07:10] LABS: ALBUMIN 3.1 g/dL (3.4-5.0); ALBUMIN/GLOBULIN RATIO 0.8 (1.0-1.7); CALCIUM 8.9 mg/dL (8.5-10.1); GFR 64.6; POTASSIUM 4.1 mmol/L (3.5-5.1); TOTAL BILIRUBIN 0.3 mg/dL (0.2-1.0)
[2018-04-06 07:12] LABS: BASO % 0 % (0-3); EOS % 0 % (0-3); HEMATOCRIT 35.1 % (36.0-47.0); HEMOGLOBIN 11.4 g/dL (12.0-15.5); LYMPH # 3.4 x10^3/uL (1.0-4.8); LYMPH % 28 % (24-48); MEAN CORPUSCULAR HEMOGLOBIN 30 pg (25-35); MEAN CORPUSCULAR HGB CONC 32 g/dL (31-37); MEAN CORPUSCULAR VOLUME 91 fL (79-100); MONO # 0.8 x10^3/uL (0.0-1.1); MONO % 7 % (0-9); NEUT # 7.8 x10^3uL (1.8-7.7); NEUT % 65 % (31-73); PLATELET COUNT 237 x10^3/uL (140-400); RED BLOOD COUNT 3.84 x10^6/uL (3.50-5.40); RED CELL DISTRIBUTION WIDTH 15.4 % (11.5-14.5)
[2018-04-06] MEDS: THIAMINE 100 MG TABLET. PO SCH (07:33)
[2018-04-06] MEDS: GABAPENTIN 300 MG CAPSULE. PO SCH ×3 (07:33→21:09)
[2018-04-06] MEDS: MULTIVITAMIN with MINERAL TABLET. PO SCH (07:33)
[2018-04-06] MEDS: FOLIC ACID 1 MG TABLET. PO SCH (07:34)
[2018-04-06] MEDS: FUROSEMIDE 40 MG TABLET. PO SCH (07:34)
[2018-04-06] MEDS: LOSARTAN POTASSIUM 50 MG TABLET. PO SCH (07:37)
[2018-04-06] MEDS: hydrALAZINE 25 MG TABLET PO SCH ×3 (07:38→21:09)
[2018-04-06] MEDS: CARVEDILOL 12.5 MG TABLET. PO SCH ×2 (07:38→17:18)
--- NOTE | 2018-04-06 08:20 | RAD ---
Abdominal ultrasound, 04/06/2018: HISTORY: Abdominal pain The gallbladder is surgically absent. The hepatic echotexture is mildly heterogeneous. No discrete hepatic mass is seen. The common hepatic duct is of normal caliber. The spleen is of normal size. The pancreas was not well visualized due to overlying bowel and the patient's body habitus. There is atherosclerotic plaquing of the upper abdominal aorta. The distal abdominal aorta was obscured by bowel. The visualized portions of the inferior vena cava are unremarkable. There is a suggestion of a small cyst along the lateral margin of the left kidney. The kidneys show no evidence of obstruction. No free fluid is evident in the abdomen. IMPRESSION: 1. Status post cholecystectomy. 2. Probable small left renal cyst. 3. Mildly heterogeneous liver. 4. Poor visualization of the pancreas and central retroperitoneum. CT scanning may be useful for further evaluation, if clinically indicated. Electronically signed by: Omari Starks MD (04/06/2018 8:17 AM) [facility]
--- NOTE | 2018-04-06 12:28 | RAD ---
MRI Brain without contrast History: Unsteady gait, falls recently, TIA Technique: Multiplanar, multisequential noncontrast MR imaging was performed of the brain. Contrast: None Comparison: None Findings: There is some motion degradation. There is no evidence of recent infarct or cytotoxic edema. Ventricular size is within normal limits. There is mild generalized supratentorial and infratentorial involutional change. There is no significant midline shift, intraaxial mass effect, or focal abnormal extra-axial fluid collection. There is mild T2 and FLAIR hyperintense signal abnormality of the supratentorial periventricular white matter bilaterally, mild extent to the deep white matter. There is no significant hemosiderin deposition of the brain parenchyma. There is preservation of the major intracranial flow-voids at the skull base. There is mild thickening bilateral mastoid air cells. The cerebellar tonsils are normal in location. There is no significant abnormality of the pineal gland or pituitary gland. There is preserved marrow signal of the clivus. There has been lens surgery bilaterally, slightly disconjugate gaze. There is right humberto bullosa. There is mild right maxillary sinus and patchy mild bilateral ethmoid air cell mucosal thickening. There is degenerative disc disease and spondylosis at the visualized C3-4 level. Impression: 1. There is no evidence of recent infarct or intracranial mass effect. Overall mild T2 and FLAIR hyperintense signal abnormality of the supratentorial parenchyma is probably due to chronic microvascular ischemic disease. There is mild generalized supratentorial and infratentorial involutional change. Electronically signed by: Carlos Eduardo Monsalve MD (04/06/2018 12:25 PM) [id number]
--- NOTE | 2018-04-06 13:03 | PDOC ---
PROGRESS NOTES Chief Complaint Chief Complaint weak, falls, shaky Vitals Vitals Vital Signs Date Time Temp Pulse Resp B/P (MAP) Pulse Ox O2 Delivery O2 Flow Rate FiO2 04/06/18 11:00 97.9 56 18 108/44 (65) 99 Room Air 97.9 04/06/18 08:00 2.0 Physical Exam Physical Exam subconjunctival hemorrhage, brusing b/l eyes General: Alert, Oriented X3, mild distress, Other (multiple caries) Heart: Regular rate, Normal S1, Normal S2, No murmurs Lungs: Clear Abdomen: Normal bowel sounds, Soft Extremities: No edema, Normal pulses Skin: No rashes Labs LABS Laboratory Tests Test 04/05/18 15:30 04/06/18 06:34 White Blood Count 13.8 x10^3/uL (4.0-11.0) 12.0 x10^3/uL (4.0-11.0) Red Blood Count 3.87 x10^6/uL (3.50-5.40) 3.84 x10^6/uL (3.50-5.40) Hemoglobin 11.4 g/dL (12.0-15.5) 11.4 g/dL (12.0-15.5) Hematocrit 35.0 % (36.0-47.0) 35.1 % (36.0-47.0) Mean Corpuscular Volume 91 fL (79-100) 91 fL (79-100) Mean Corpuscular Hemoglobin 30 pg (25-35) 30 pg (25-35) Mean Corpuscular Hemoglobin Concent 33 g/dL (31-37) 32 g/dL (31-37) Red Cell Distribution Width 15.4 % (11.5-14.5) 15.4 % (11.5-14.5) Platelet Count 244 x10^3/uL (140-400) 237 x10^3/uL (140-400) Neutrophils (%) (Auto) 78 % (31-73) 65 % (31-73) Lymphocytes (%) (Auto) 17 % (24-48) 28 % (24-48) Monocytes (%) (Auto) 5 % (0-9) 7 % (0-9) Eosinophils (%) (Auto) 0 % (0-3) 0 % (0-3) Basophils (%) (Auto) 0 % (0-3) 0 % (0-3) Neutrophils # (Auto) 10.8 x10^3uL (1.8-7.7) 7.8 x10^3uL (1.8-7.7) Lymphocytes # (Auto) 2.3 x10^3/uL (1.0-4.8) 3.4 x10^3/uL (1.0-4.8) Monocytes # (Auto) 0.7 x10^3/uL (0.0-1.1) 0.8 x10^3/uL (0.0-1.1) Eosinophils # (Auto) 0.0 x10^3/uL (0.0-0.7) 0.0 x10^3/uL (0.0-0.7) Basophils # (Auto) 0.0 x10^3/uL (0.0-0.2) 0.0 x10^3/uL (0.0-0.2) Sodium Level 137 mmol/L (136-145) 139 mmol/L (136-145) Potassium Level 4.0 mmol/L (3.5-5.1) 4.1 mmol/L (3.5-5.1) Chloride Level 103 mmol/L (98-107) 105 mmol/L (98-107) Carbon Dioxide Level 27 mmol/L (21-32) 28 mmol/L (21-32) Anion Gap 7 (6-14) 6 (6-14) Blood Urea Nitrogen 17 mg/dL (7-20) 22 mg/dL (7-20) Creatinine 1.0 mg/dL (0.6-1.0) 1.0 mg/dL (0.6-1.0) Estimated GFR (Cockcroft-Gault) 64.6 64.6 BUN/Creatinine Ratio 17 (6-20) 22 (6-20) Glucose Level 222 mg/dL (70-99) 198 mg/dL (70-99) Calcium Level 8.5 mg/dL (8.5-10.1) 8.9 mg/dL (8.5-10.1) Total Bilirubin 0.3 mg/dL (0.2-1.0) 0.3 mg/dL (0.2-1.0) Aspartate Amino Transf (AST/SGOT) 32 U/L (15-37) 27 U/L (15-37) Alanine Aminotransferase (ALT/SGPT) 60 U/L (14-59) 52 U/L (14-59) Alkaline Phosphatase 66 U/L (46-116) 63 U/L (46-116) Creatine Kinase 327 U/L (26-192) Total Protein 7.2 g/dL (6.4-8.2) 7.0 g/dL (6.4-8.2) Albumin 3.1 g/dL (3.4-5.0) 3.1 g/dL (3.4-5.0) Albumin/Globulin Ratio 0.8 (1.0-1.7) 0.8 (1.0-1.7) Vitamin B12 Level 541 pg/mL (247-911) Assessment and Plan Assessmemt and Plan Problems Medical Problems: 1. alcoholism 2. falls likely duet to#1 3. encephalopathy better 4. copd 5. chf 6. h/o cardiomyopathy plan: reviewed consults optimize meds pt.ot increase activity alcohol abstinence educated Comment Review of Relevant I have reviewed the following items pricila (where applicable) has been applied. Labs Laboratory Tests Test 04/05/18 15:30 04/06/18 06:34 White Blood Count 13.8 x10^3/uL (4.0-11.0) 12.0 x10^3/uL (4.0-11.0) Red Blood Count 3.87 x10^6/uL (3.50-5.40) 3.84 x10^6/uL (3.50-5.40) Hemoglobin 11.4 g/dL (12.0-15.5) 11.4 g/dL (12.0-15.5) Hematocrit 35.0 % (36.0-47.0) 35.1 % (36.0-47.0) Mean Corpuscular Volume 91 fL (79-100) 91 fL (79-100) Mean Corpuscular Hemoglobin 30 pg (25-35) 30 pg (25-35) Mean Corpuscular Hemoglobin Concent 33 g/dL (31-37) 32 g/dL (31-37) Red Cell Distribution Width 15.4 % (11.5-14.5) 15.4 % (11.5-14.5) Platelet Count 244 x10^3/uL (140-400) 237 x10^3/uL (140-400) Neutrophils (%) (Auto) 78 % (31-73) 65 % (31-73) Lymphocytes (%) (Auto) 17 % (24-48) 28 % (24-48) Monocytes (%) (Auto) 5 % (0-9) 7 % (0-9) Eosinophils (%) (Auto) 0 % (0-3) 0 % (0-3) Basophils (%) (Auto) 0 % (0-3) 0 % (0-3) Neutrophils # (Auto) 10.8 x10^3uL (1.8-7.7) 7.8 x10^3uL (1.8-7.7) Lymphocytes # (Auto) 2.3 x10^3/uL (1.0-4.8) 3.4 x10^3/uL (1.0-4.8) Monocytes # (Auto) 0.7 x10^3/uL (0.0-1.1) 0.8 x10^3/uL (0.0-1.1) Eosinophils # (Auto) 0.0 x10^3/uL (0.0-0.7) 0.0 x10^3/uL (0.0-0.7) Basophils # (Auto) 0.0 x10^3/uL (0.0-0.2) 0.0 x10^3/uL (0.0-0.2) Sodium Level 137 mmol/L (136-145) 139 mmol/L (136-145) Potassium Level 4.0 mmol/L (3.5-5.1) 4.1 mmol/L (3.5-5.1) Chloride Level 103 mmol/L (98-107) 105 mmol/L (98-107) Carbon Dioxide Level 27 mmol/L (21-32) 28 mmol/L (21-32) Anion Gap 7 (6-14) 6 (6-14) Blood Urea Nitrogen 17 mg/dL (7-20) 22 mg/dL (7-20) Creatinine 1.0 mg/dL (0.6-1.0) 1.0 mg/dL (0.6-1.0) Estimated GFR (Cockcroft-Gault) 64.6 64.6 BUN/Creatinine Ratio 17 (6-20) 22 (6-20) Glucose Level 222 mg/dL (70-99) 198 mg/dL (70-99) Calcium Level 8.5 mg/dL (8.5-10.1) 8.9 mg/dL (8.5-10.1) Total Bilirubin 0.3 mg/dL (0.2-1.0) 0.3 mg/dL (0.2-1.0) Aspartate Amino Transf (AST/SGOT) 32 U/L (15-37) 27 U/L (15-37) Alanine Aminotransferase (ALT/SGPT) 60 U/L (14-59) 52 U/L (14-59) Alkaline Phosphatase 66 U/L (46-116) 63 U/L (46-116) Creatine Kinase 327 U/L (26-192) Total Protein 7.2 g/dL (6.4-8.2) 7.0 g/dL (6.4-8.2) Albumin 3.1 g/dL (3.4-5.0) 3.1 g/dL (3.4-5.0) Albumin/Globulin Ratio 0.8 (1.0-1.7) 0.8 (1.0-1.7) Vitamin B12 Level 541 pg/mL (247-911) Laboratory Tests Test 04/05/18 15:30 04/06/18 06:34 White Blood Count 13.8 x10^3/uL (4.0-11.0) 12.0 x10^3/uL (4.0-11.0) Red Blood Count 3.87 x10^6/uL (3.50-5.40) 3.84 x10^6/uL (3.50-5.40) Hemoglobin 11.4 g/dL (12.0-15.5) 11.4 g/dL (12.0-15.5) Hematocrit 35.0 % (36.0-47.0) 35.1 % (36.0-47.0) Mean Corpuscular Volume 91 fL (79-100) 91 fL (79-100) Mean Corpuscular Hemoglobin 30 pg (25-35) 30 pg (25-35) Mean Corpuscular Hemoglobin Concent 33 g/dL (31-37) 32 g/dL (31-37) Red Cell Distribution Width 15.4 % (11.5-14.5) 15.4 % (11.5-14.5) Platelet Count 244 x10^3/uL (140-400) 237 x10^3/uL (140-400) Neutrophils (%) (Auto) 78 % (31-73) 65 % (31-73) Lymphocytes (%) (Auto) 17 % (24-48) 28 % (24-48) Monocytes (%) (Auto) 5 % (0-9) 7 % (0-9) Eosinophils (%) (Auto) 0 % (0-3) 0 % (0-3) Basophils (%) (Auto) 0 % (0-3) 0 % (0-3) Neutrophils # (Auto) 10.8 x10^3uL (1.8-7.7) 7.8 x10^3uL (1.8-7.7) Lymphocytes # (Auto) 2.3 x10^3/uL (1.0-4.8) 3.4 x10^3/uL (1.0-4.8) Monocytes # (Auto) 0.7 x10^3/uL (0.0-1.1) 0.8 x10^3/uL (0.0-1.1) Eosinophils # (Auto) 0.0 x10^3/uL (0.0-0.7) 0.0 x10^3/uL (0.0-0.7) Basophils # (Auto) 0.0 x10^3/uL (0.0-0.2) 0.0 x10^3/uL (0.0-0.2) Sodium Level 137 mmol/L (136-145) 139 mmol/L (136-145) Potassium Level 4.0 mmol/L (3.5-5.1) 4.1 mmol/L (3.5-5.1) Chloride Level 103 mmol/L (98-107) 105 mmol/L (98-107) Carbon Dioxide Level 27 mmol/L (21-32) 28 mmol/L (21-32) Anion Gap 7 (6-14) 6 (6-14) Blood Urea Nitrogen 17 mg/dL (7-20) 22 mg/dL (7-20) Creatinine 1.0 mg/dL (0.6-1.0) 1.0 mg/dL (0.6-1.0) Estimated GFR (Cockcroft-Gault) 64.6 64.6 BUN/Creatinine Ratio 17 (6-20) 22 (6-20) Glucose Level 222 mg/dL (70-99) 198 mg/dL (70-99) Calcium Level 8.5 mg/dL (8.5-10.1) 8.9 mg/dL (8.5-10.1) Total Bilirubin 0.3 mg/dL (0.2-1.0) 0.3 mg/dL (0.2-1.0) Aspartate Amino Transf (AST/SGOT) 32 U/L (15-37) 27 U/L (15-37) Alanine Aminotransferase (ALT/SGPT) 60 U/L (14-59) 52 U/L (14-59) Alkaline Phosphatase 66 U/L (46-116) 63 U/L (46-116) Creatine Kinase 327 U/L (26-192) Total Protein 7.2 g/dL (6.4-8.2) 7.0 g/dL (6.4-8.2) Albumin 3.1 g/dL (3.4-5.0) 3.1 g/dL (3.4-5.0) Albumin/Globulin Ratio 0.8 (1.0-1.7) 0.8 (1.0-1.7) Vitamin B12 Level 541 pg/mL (247-911) Medications Current Medications Albuterol/ Ipratropium (Duoneb) 3 ml 1X ONCE NEB Last administered on at 21:22; Start 04/03/18 at 21:30; Stop 04/03/18 at 21:31; Status DC Dexamethasone Sodium Phosphate (Decadron) 10 mg 1X ONCE IV Last administered on 04/04/18at 00:05; Start 04/03/18 at 21:30; Stop 04/03/18 at 21:31; Status DC Sodium Chloride 1,000 ml @ 1,000 mls/hr 1X ONCE IV Last administered on at 00:05; Start 04/03/18 at 21:30; Stop 04/03/18 at 22:29; Status DC Ondansetron HCl (Zofran) 4 mg PRN Q8HRS PRN IV NAUSEA/VOMITING 1ST CHOICE; Start 04/04/18 at 00:45; Stop 04/05/18 at 00:44; Status DC Morphine Sulfate (Morphine Sulfate) 4 mg PRN Q2HR PRN IV SEVERE PAIN; Start at 00:45; Stop 04/05/18 at 00:44; Status DC Acetaminophen (Tylenol) 650 mg PRN Q4HRS PRN PO FEVER; Start 04/04/18 at 00:45 ; Stop 04/05/18 at 00:44; Status DC Albuterol/ Ipratropium (Duoneb) 3 ml RTQID NEB Last administered on 04/04/18at 19:40; Start 04/04/18 at 08:00; Stop 04/05/18 at 07:59; Status DC Lorazepam (Ativan) 2 mg PRN Q15MIN PRN IV ETOH WITHDRAWAL; Start 04/04/18 at 00 :45 Multivitamins 10 ml/Thiamine HCl 100 mg/Folic Acid 1 mg/Sodium Chloride 1,011.2 ml @ 250 mls/ hr 1X ONCE IV Last administered on 04/04/18at 04:47; Start 04/04 at 01:30; Stop 04/04/18 at 05:32; Status DC Atorvastatin Calcium (Lipitor) 20 mg HS PO Last administered on 04/05/18at 20:29 ; Start 04/04/18 at 21:00 Furosemide (Lasix) 40 mg DAILY PO Last administered on 04/06/18at 07:34; Start 04/04/18 at 09:00 Carvedilol (Coreg) 25 mg BIDWMEALS PO Last administered on 04/06/18 07:38; Start 04/04/18 at 09:00 Diltiazem HCl (Cardizem 24hr Cd) 180 mg DAILY PO Last administered on at 09:08; Start 04/04/18 at 09:00 Gabapentin (Neurontin) 300 mg TID PO Last administered on 04/06/18at 07:33; Start 04/04/18 at 09:00 Hydralazine HCl (Apresoline) 25 mg TID PO Last administered on 04/06/18 07:38 ; Start 04/04/18 at 09:00 Losartan Potassium (Cozaar) 100 mg DAILY PO Last administered on 04/06/18 07: 37; Start 04/04/18 at 09:00 Tramadol HCl (Ultram) 50 mg PRN TID PRN PO PAIN Last administered on 04/05/18 14:33; Start 04/04/18 at 08:15 Labetalol HCl (Normodyne Iv Push) 10 mg 1X ONCE IVP Last administered on 08:28; Start 04/04/18 at 08:30; Stop 04/04/18 at 08:31; Status DC Thiamine Mononitrate (Vitamin B-1) 100 mg DAILY PO Last administered on 07:33; Start 04/05/18 at 09:00 Folic Acid (Folic Acid) 1 mg DAILY PO Last administered on 04/06/18 07:34; Start 04/05/18 at 09:00 Multivitamins (Thera M Plus) 1 tab DAILY PO Last administered on 04/06/18 07: 33; Start 04/05/18 at 09:00 Guaifenesin (Mucinex) 1,200 mg BID PO Last administered on 04/06/18 07:33; Start 04/05/18 at 14:00 Active Scripts Active Reported Gabapentin 300 Mg Capsule 300 Mg PO TID 30 Days Cardizem Cd (Diltiazem Hcl) 180 Mg Cap.er.24h 1 Cap PO DAILY Hydralazine Hcl 25 Mg Tablet 1 Tab PO TID Atorvastatin Calcium 20 Mg Tablet 20 Mg PO HS Losartan Potassium 100 Mg Tablet 100 Mg PO DAILY Carvedilol 25 Mg Tablet 1 Tab PO BIDWMEALS Vitals/I & O Vital Sign - Last 24 Hours 04/05/18 04/05/18 04/05/18 04/05/18 14:33 14:33 15:18 15:33 Temp 98.1 98.1 Pulse 53 52 Resp 18 20 18 B/P (MAP) 155/74 130/53 (78) Pulse Ox 98 98 O2 Delivery Room Air Room Air Room Air O2 Flow Rate 2.0 04/05/18 04/05/18 04/05/18 04/05/18 18:04 19:00 20:00 20:30 Temp 98.6 98.6 Pulse 46 56 56 Resp 20 B/P (MAP) 119/49 137/60 (85) 137/60 Pulse Ox 100 O2 Delivery Nasal Cannula Nasal Cannula O2 Flow Rate 2.0 2.0 04/05/18 04/06/18 04/06/18 04/06/18 23:00 03:00 07:00 07:37 Temp 98.3 98.1 98.3 98.3 98.1 98.3 Pulse 56 56 51 51 Resp 20 20 18 B/P (MAP) 109/49 (69) 137/58 (84) 151/67 (95) 151/67 Pulse Ox 97 100 96 O2 Delivery Nasal Cannula Nasal Cannula 2L O2 Flow Rate 2.0 2.0 04/06/18 04/06/18 04/06/18 04/06/18 07:38 07:38 08:00 09:00 Pulse 51 51 56 B/P (MAP) 151/67 151/67 108/44 O2 Delivery Nasal Cannula O2 Flow Rate 2.0 04/06/18 11:00 Temp 97.9 97.9 Pulse 56 Resp 18 B/P (MAP) 108/44 (65) Pulse Ox 99 O2 Delivery Room Air Intake and Output 04/05/18 04/05/18 04/06/18 15:00 23:00 07:00 Intake Total 660 ml 930 ml 450 ml Output Total 700 ml 300 ml Balance 660 ml 230 ml 150 ml HARRIETT OLIVA MD Apr 06, 2018 13:03
--- NOTE | 2018-04-06 13:26 | RAD ---
CT of the cervical spine without contrast, 04/06/2018: HISTORY: Frequent falls, neck pain Noncontrast scans were obtained with multiplanar reconstructions produced. There is moderate multilevel degenerative disc disease and spurring throughout the cervical spine. There are large anterior spurs at C3-4 and C4-5. There are extensive hypertrophic degenerative changes involving multiple facet joints bilaterally. No acute fracture or dislocation is identified. At C2-3 there is mild posterior disc bulging at the midline. There is borderline narrowing of the central spinal canal. At C3-4 there are prominent posterior spurs at the midline with mild associated central spinal stenosis. There is mild right bony foraminal narrowing. At C4-5 there are prominent posterior spurs, worse on the right. This results in moderate central spinal stenosis and mild bilateral foraminal narrowing. At C5-6 there is mild posterior spurring producing mild central spinal stenosis and moderate right foraminal narrowing. At C6-7 there is mild posterior marginal spurring. There is moderate narrowing of the right neural foramen due to spurring at this level. There is borderline narrowing of the central spinal canal. The thyroid gland is heterogeneous with enlargement of the left lobe in a pattern suggesting a multinodular gland. There is calcific plaquing at the carotid bifurcations. IMPRESSION: 1. Moderately severe multilevel hypertrophic degenerative change as described above. 2. No acute bony abnormality is detected. Electronically signed by: Omari Starks MD (04/06/2018 1:23 PM) [facility]
--- NOTE | 2018-04-06 18:08 | PDOC ---
PROGRESS NOTES Assessment Assessment Metabolic encephalopathy. Toxic encephalopathy. Alcohol intoxication, level 213 on 04/03. Frequent falls. COPD. CHF. HTN. Left renal solid mass. DM. Alcohol abuse. Smoking. Hepatic injury. Obesity. Degenerative C-spine disease. No evidence of acute CVA this time. RECOMMENDATIONS/PLAN: Alcohol intoxication treatment. Vit B1 100 mg daily. Treat medical diseases. OT/PT. HISTORY OF THE PRESENT ILLNESS: 82-y-old AA female patient with above medical diseases and alcohol use/abuse was admitted this time due to frequent falls. She had 5 falls on the day of admission. Neurology was requested for consultation on 04/05 for frequent falls. PAST MEDICAL HISTORY Cardiovascular: CHF, HTN, MS (NSTEMI 05/2017), Other (STRESS INDUCED CARDIOMYOPATHY WITH RECOVERED EF) Pulmonary: COPD (WITH PERSISTENT TOBACCO USE & CHRONIC O2 USE ) GI: No pertinent hx Heme/Onc: No pertinent hx Hepatobiliary: No pertinent hx Psych: Addictions (ETOH) Musculoskeletal: Osteoarthritis Infectious disease: No pertinent hx ENT: No pertinent hx Renal/: No pertinent hx Endocrine: No pertinent hx Dermatology: No pertinent hx PAST SURGICAL HISTORY Cholecystectomy, Total hip replacement (BILATERAL) FAMILY HISTORY Unknown SOCIAL HISTORY Smoke: <1 pack per day (SINCE AGE 34) ALCOHOL: heavy Drugs: None Lives: Alone ALLERGY: Reviewed. MEDICATIONS: Refer to [facility] REVIEW OF SYSTEMS: Constitutional: Obesity. Head: No traumatic brain or head injury. Skin: No edema, or rash. Ear: No infection. Eyes: No vision loss or color blindness. Nose: No bleeding or purulent discharges. Hearing: Hearing decrease. Neck: No injury. Breast: No history of cancer, masses,or discharges. Cardiac: CHF, HTN. Pulmonary: No COPD. GI: No GI ulcer, GI bleeding. Urinary/genital: UTI. Endocrinologic: Diabetes Mellitus, obesity. Skeletomuscular: Generalized weakness. Neurological: see HP. Psychiatric: Denies drug use/abuse. Otherwise, not [id number] review of systems. PHYSICAL EXAMINATION: General appearance is in subacute distress. HEENT: Normocephalic and nontraumatic. Eyes, nose, ears, and throat are unremarkable. Neck is supple. No lymphadenopathy. No crepitus. Cardiovascular: S1, S2, regular rate and rhythm. Pulmonary: Clear to auscultation bilaterally. Abdomen: Bowel sounds are positive. Abdomen is soft, nontender, and nondistended. Extremities: No rash, lesions, or edema. No restriction of range of motion NEUROLOGICAL EXAMINATION: Awake. Not fully oriented to time, but knew place and person. PERRL. EOMI. CN: no focal findings. Muscle tone: within normal. Muscle strength: 4_ DTR: 0-1 due to obesity. Plantar reflex: Neutral response bilaterally Gait: not examined in bed. Sensory exam: no abnormal findings. No acute cerebellar signs elicited. F-T-N test not very accurate. Objective Objective Vital Signs Date Time Temp Pulse Resp B/P (MAP) Pulse Ox O2 Delivery O2 Flow Rate FiO2 04/06/18 17:18 56 108/44 04/06/18 15:00 98.0 18 97 2L 98.0 04/06/18 08:00 2.0 Intake and Output 04/06/18 07:00 Intake Total 2040 ml Output Total 1000 ml Balance 1040 ml Intake Oral 2040 ml Output Urine Total 1000 ml Vitals Signs Vitals VS - Last 72 Hours, by Label Date Time Temp Pulse Resp B/P (MAP) Pulse Ox O2 Delivery O2 Flow Rate FiO2 04/06/18 17:18 56 108/44 04/06/18 15:07 56 108/44 04/06/18 15:00 98.0 57 18 161/59 (93) 97 2L 98.0 04/06/18 11:00 97.9 56 18 108/44 (65) 99 Room Air 97.9 04/06/18 09:00 56 108/44 04/06/18 08:00 Nasal Cannula 2.0 04/06/18 07:38 51 151/67 04/06/18 07:38 51 151/67 04/06/18 07:37 51 151/67 04/06/18 07:00 98.3 51 18 151/67 (95) 96 2L 98.3 04/06/18 03:00 98.1 56 20 137/58 (84) 100 Nasal Cannula 2.0 98.1 04/05/18 23:00 98.3 56 20 109/49 (69) 97 Nasal Cannula 2.0 98.3 04/05/18 20:30 56 137/60 04/05/18 20:00 Nasal Cannula 2.0 04/05/18 19:00 98.6 56 20 137/60 (85) 100 Nasal Cannula 2.0 98.6 8/23/18 18:04 46 119/49 04/05/18 15:33 18 98 Room Air 2.0 04/05/18 15:18 98.1 52 20 130/53 (78) 98 Room Air 98.1 04/05/18 14:33 18 Room Air 04/05/18 14:33 53 155/74 04/05/18 11:04 Nasal Cannula 2.0 04/05/18 11:00 98.5 53 20 155/74 (101) 98 Nasal Cannula 2.0 98.5 04/05/18 09:11 56 173/77 04/05/18 09:10 56 173/77 04/05/18 09:10 56 173/77 04/05/18 09:09 18 99 Room Air 04/05/18 09:08 56 173/77 04/05/18 08:04 Room Air 04/05/18 07:47 99 Room Air 04/05/18 07:00 98.4 56 20 173/77 (109) Room Air 98.4 Laboratory Laboratory Laboratory Tests Test 04/06/18 06:34 White Blood Count 12.0 x10^3/uL (4.0-11.0) Red Blood Count 3.84 x10^6/uL (3.50-5.40) Hemoglobin 11.4 g/dL (12.0-15.5) Hematocrit 35.1 % (36.0-47.0) Mean Corpuscular Volume 91 fL (79-100) Mean Corpuscular Hemoglobin 30 pg (25-35) Mean Corpuscular Hemoglobin Concent 32 g/dL (31-37) Red Cell Distribution Width 15.4 % (11.5-14.5) Platelet Count 237 x10^3/uL (140-400) Neutrophils (%) (Auto) 65 % (31-73) Lymphocytes (%) (Auto) 28 % (24-48) Monocytes (%) (Auto) 7 % (0-9) Eosinophils (%) (Auto) 0 % (0-3) Basophils (%) (Auto) 0 % (0-3) Neutrophils # (Auto) 7.8 x10^3uL (1.8-7.7) Lymphocytes # (Auto) 3.4 x10^3/uL (1.0-4.8) Monocytes # (Auto) 0.8 x10^3/uL (0.0-1.1) Eosinophils # (Auto) 0.0 x10^3/uL (0.0-0.7) Basophils # (Auto) 0.0 x10^3/uL (0.0-0.2) Sodium Level 139 mmol/L (136-145) Potassium Level 4.1 mmol/L (3.5-5.1) Chloride Level 105 mmol/L (98-107) Carbon Dioxide Level 28 mmol/L (21-32) Anion Gap 6 (6-14) Blood Urea Nitrogen 22 mg/dL (7-20) Creatinine 1.0 mg/dL (0.6-1.0) Estimated GFR (Cockcroft-Gault) 64.6 BUN/Creatinine Ratio 22 (6-20) Glucose Level 198 mg/dL (70-99) Calcium Level 8.9 mg/dL (8.5-10.1) Total Bilirubin 0.3 mg/dL (0.2-1.0) Aspartate Amino Transf (AST/SGOT) 27 U/L (15-37) Alanine Aminotransferase (ALT/SGPT) 52 U/L (14-59) Alkaline Phosphatase 63 U/L (46-116) Total Protein 7.0 g/dL (6.4-8.2) Albumin 3.1 g/dL (3.4-5.0) Albumin/Globulin Ratio 0.8 (1.0-1.7) Comment Review of Relevant I have reviewed the following items pricila (where applicable) has been applied. NING DIEHL MD Apr 06, 2018 18:08
[2018-04-06] MEDS: ATORVASTATIN CALCIUM 20 MG TABLET PO SCH (21:09)
[2018-04-07 03:31] VITALS: BP 120/55
[2018-04-07 07:20] VITALS: BP 141/67
[2018-04-07] MEDS ORDERED: ONDANSETRON ODT 4 MG TAB.RAPDIS. PO PRN (08:15)
[2018-04-07] MEDS ORDERED: ALBUTEROL SULFATE 2.5 MG/3 ML NEBU. NEB PRN (08:15)
[2018-04-07] MEDS ORDERED: ACETAMINOPHEN 500 MG TABLET PO PRN (08:15)
[2018-04-07] MEDS ORDERED: ONDANSETRON PF 4 MG/2 ML VIAL. IV PRN (08:15)
[2018-04-07] MEDS ORDERED: chlordiazePOXIDE HCL 25 MG CAPSULE PO PRN (08:15)
[2018-04-07] MEDS: FUROSEMIDE 40 MG TABLET. PO SCH (08:54)
[2018-04-07] MEDS: GABAPENTIN 300 MG CAPSULE. PO SCH ×3 (08:54→20:19)
[2018-04-07] MEDS: FOLIC ACID 1 MG TABLET. PO SCH (08:54)
[2018-04-07] MEDS: THIAMINE 100 MG TABLET. PO SCH (08:54)
[2018-04-07] MEDS: MULTIVITAMIN with MINERAL TABLET. PO SCH (08:54)
[2018-04-07] MEDS: hydrALAZINE 25 MG TABLET PO SCH ×3 (08:55→20:20)
[2018-04-07] MEDS: LOSARTAN POTASSIUM 50 MG TABLET. PO SCH (08:55)
[2018-04-07] MEDS: CARVEDILOL 12.5 MG TABLET. PO SCH ×2 (08:56→16:48)
--- NOTE | 2018-04-07 09:40 | PDOC ---
PROGRESS NOTES Chief Complaint Chief Complaint Frequent falls at home Metabolic encephalopathy. Toxic encephalopathy. Alcohol intoxication, level 213 on 04/03. CHF.compensated HTN.controlled DM. Alcohol abuse. Smoking. No evidence of acute CVA this time. 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 Orbit obesity, BMI 41.2 History of Present Illness History of Present Illness Admitted for frequent falls with negative neuro workup but refusing rehabilitation Lives with son Inderjit and wants only to go home there All scans I have personally reviewed WBC 12, no fever PT OT still pending Plan: Need to wait for PTOT eval Abstain from alcohol and cigarettes 1-1 smoking and alcohol cessation done today Vitals Vitals Vital Signs Date Time Temp Pulse Resp B/P (MAP) Pulse Ox O2 Delivery O2 Flow Rate FiO2 04/07/18 08:56 63 141/67 04/07/18 07:20 98.0 18 94 Room Air 98.0 04/06/18 20:00 2.0 Physical Exam Physical Exam subconjunctival hemorrhage, brusing b/l eyes General: Alert, Oriented X3, mild distress, Other (multiple caries) Heart: Regular rate, Normal S1, Normal S2, No murmurs Lungs: Clear Abdomen: Normal bowel sounds, Soft Extremities: No edema, Normal pulses Skin: No rashes Review of Systems Review of Systems Weak, sore all over, the rest of ROS negative Assessment and Plan Assessmemt and Plan Problems Medical Problems: (1) COPD (chronic obstructive pulmonary disease) Status: Acute (2) ETOH abuse Status: Acute (3) Fall Status: Acute Comment Review of Relevant I have reviewed the following items pricila (where applicable) has been applied. Labs Laboratory Tests Test 04/05/18 15:30 04/06/18 06:34 White Blood Count 13.8 x10^3/uL (4.0-11.0) 12.0 x10^3/uL (4.0-11.0) Red Blood Count 3.87 x10^6/uL (3.50-5.40) 3.84 x10^6/uL (3.50-5.40) Hemoglobin 11.4 g/dL (12.0-15.5) 11.4 g/dL (12.0-15.5) Hematocrit 35.0 % (36.0-47.0) 35.1 % (36.0-47.0) Mean Corpuscular Volume 91 fL (79-100) 91 fL (79-100) Mean Corpuscular Hemoglobin 30 pg (25-35) 30 pg (25-35) Mean Corpuscular Hemoglobin Concent 33 g/dL (31-37) 32 g/dL (31-37) Red Cell Distribution Width 15.4 % (11.5-14.5) 15.4 % (11.5-14.5) Platelet Count 244 x10^3/uL (140-400) 237 x10^3/uL (140-400) Neutrophils (%) (Auto) 78 % (31-73) 65 % (31-73) Lymphocytes (%) (Auto) 17 % (24-48) 28 % (24-48) Monocytes (%) (Auto) 5 % (0-9) 7 % (0-9) Eosinophils (%) (Auto) 0 % (0-3) 0 % (0-3) Basophils (%) (Auto) 0 % (0-3) 0 % (0-3) Neutrophils # (Auto) 10.8 x10^3uL (1.8-7.7) 7.8 x10^3uL (1.8-7.7) Lymphocytes # (Auto) 2.3 x10^3/uL (1.0-4.8) 3.4 x10^3/uL (1.0-4.8) Monocytes # (Auto) 0.7 x10^3/uL (0.0-1.1) 0.8 x10^3/uL (0.0-1.1) Eosinophils # (Auto) 0.0 x10^3/uL (0.0-0.7) 0.0 x10^3/uL (0.0-0.7) Basophils # (Auto) 0.0 x10^3/uL (0.0-0.2) 0.0 x10^3/uL (0.0-0.2) Sodium Level 137 mmol/L (136-145) 139 mmol/L (136-145) Potassium Level 4.0 mmol/L (3.5-5.1) 4.1 mmol/L (3.5-5.1) Chloride Level 103 mmol/L (98-107) 105 mmol/L (98-107) Carbon Dioxide Level 27 mmol/L (21-32) 28 mmol/L (21-32) Anion Gap 7 (6-14) 6 (6-14) Blood Urea Nitrogen 17 mg/dL (7-20) 22 mg/dL (7-20) Creatinine 1.0 mg/dL (0.6-1.0) 1.0 mg/dL (0.6-1.0) Estimated GFR (Cockcroft-Gault) 64.6 64.6 BUN/Creatinine Ratio 17 (6-20) 22 (6-20) Glucose Level 222 mg/dL (70-99) 198 mg/dL (70-99) Calcium Level 8.5 mg/dL (8.5-10.1) 8.9 mg/dL (8.5-10.1) Total Bilirubin 0.3 mg/dL (0.2-1.0) 0.3 mg/dL (0.2-1.0) Aspartate Amino Transf (AST/SGOT) 32 U/L (15-37) 27 U/L (15-37) Alanine Aminotransferase (ALT/SGPT) 60 U/L (14-59) 52 U/L (14-59) Alkaline Phosphatase 66 U/L (46-116) 63 U/L (46-116) Creatine Kinase 327 U/L (26-192) Total Protein 7.2 g/dL (6.4-8.2) 7.0 g/dL (6.4-8.2) Albumin 3.1 g/dL (3.4-5.0) 3.1 g/dL (3.4-5.0) Albumin/Globulin Ratio 0.8 (1.0-1.7) 0.8 (1.0-1.7) Vitamin B12 Level 541 pg/mL (247-911) Medications Current Medications Albuterol/ Ipratropium (Duoneb) 3 ml 1X ONCE NEB Last administered on at 21:22; Start 04/03/18 at 21:30; Stop 04/03/18 at 21:31; Status DC Dexamethasone Sodium Phosphate (Decadron) 10 mg 1X ONCE IV Last administered on 04/04/18at 00:05; Start 04/03/18 at 21:30; Stop 04/03/18 at 21:31; Status DC Sodium Chloride 1,000 ml @ 1,000 mls/hr 1X ONCE IV Last administered on at 00:05; Start 04/03/18 at 21:30; Stop 04/03/18 at 22:29; Status DC Ondansetron HCl (Zofran) 4 mg PRN Q8HRS PRN IV NAUSEA/VOMITING 1ST CHOICE; Start 04/04/18 at 00:45; Stop 04/05/18 at 00:44; Status DC Morphine Sulfate (Morphine Sulfate) 4 mg PRN Q2HR PRN IV SEVERE PAIN; Start at 00:45; Stop 04/05/18 at 00:44; Status DC Acetaminophen (Tylenol) 650 mg PRN Q4HRS PRN PO FEVER; Start 04/04/18 at 00:45 ; Stop 04/05/18 at 00:44; Status DC Albuterol/ Ipratropium (Duoneb) 3 ml RTQID NEB Last administered on 04/04/18at 19:40; Start 04/04/18 at 08:00; Stop 04/05/18 at 07:59; Status DC Lorazepam (Ativan) 2 mg PRN Q15MIN PRN IV ETOH WITHDRAWAL; Start 04/04/18 at 00 :45 Multivitamins 10 ml/Thiamine HCl 100 mg/Folic Acid 1 mg/Sodium Chloride 1,011.2 ml @ 250 mls/ hr 1X ONCE IV Last administered on 04/04/18at 04:47; Start 04/04 at 01:30; Stop 04/04/18 at 05:32; Status DC Atorvastatin Calcium (Lipitor) 20 mg HS PO Last administered on 04/06/18at 21:09 ; Start 04/04/18 at 21:00 Furosemide (Lasix) 40 mg DAILY PO Last administered on 04/07/18at 08:54; Start 04/04/18 at 09:00 Carvedilol (Coreg) 25 mg BIDWMEALS PO Last administered on 04/07/18at 08:56; Start 04/04/18 at 09:00 Diltiazem HCl (Cardizem 24hr Cd) 180 mg DAILY PO Last administered on at 08:56; Start 04/04/18 at 09:00 Gabapentin (Neurontin) 300 mg TID PO Last administered on 04/07/18 08:54; Start 04/04/18 at 09:00 Hydralazine HCl (Apresoline) 25 mg TID PO Last administered on 04/07/18 08:55 ; Start 04/04/18 at 09:00 Losartan Potassium (Cozaar) 100 mg DAILY PO Last administered on 04/07/18 08: 55; Start 04/04/18 at 09:00 Tramadol HCl (Ultram) 50 mg PRN TID PRN PO PAIN Last administered on 04/05/18 14:33; Start 04/04/18 at 08:15 Labetalol HCl (Normodyne Iv Push) 10 mg 1X ONCE IVP Last administered on 08:28; Start 04/04/18 at 08:30; Stop 04/04/18 at 08:31; Status DC Thiamine Mononitrate (Vitamin B-1) 100 mg DAILY PO Last administered on 08:54; Start 04/05/18 at 09:00 Folic Acid (Folic Acid) 1 mg DAILY PO Last administered on 04/07/18 08:54; Start 04/05/18 at 09:00 Multivitamins (Thera M Plus) 1 tab DAILY PO Last administered on 04/07/18 08: 54; Start 04/05/18 at 09:00 Guaifenesin (Mucinex) 1,200 mg BID PO Last administered on 04/07/18 08:54; Start 04/05/18 at 14:00 Chlordiazepoxide (Librium) 25 mg PRN Q6HRS PRN PO ANXIETY / AGITATION; Start at 08:15 Acetaminophen (Tylenol) 500 mg PRN Q6HRS PRN PO MILD PAIN / TEMP; Start at 08:15 Ondansetron HCl (Zofran) 4 mg PRN Q6HRS PRN IV NAUSEA/VOMITING; Start 04/07/18 at 08:15 Ondansetron HCl (Zofran Odt) 4 mg PRN Q6HRS PRN PO NAUSEA/VOMITING; Start 04/07 at 08:15 Albuterol Sulfate (Ventolin Neb Soln) 2.5 mg PRN Q4HRS PRN NEB SHORTNESS OF BREATH; Start 04/07/18 at 08:15 Active Scripts Active Reported Gabapentin 300 Mg Capsule 300 Mg PO TID 30 Days Cardizem Cd (Diltiazem Hcl) 180 Mg Cap.er.24h 1 Cap PO DAILY Hydralazine Hcl 25 Mg Tablet 1 Tab PO TID Atorvastatin Calcium 20 Mg Tablet 20 Mg PO HS Losartan Potassium 100 Mg Tablet 100 Mg PO DAILY Carvedilol 25 Mg Tablet 1 Tab PO BIDWMEALS Vitals/I & O Vital Sign - Last 24 Hours 04/06/18 04/06/18 04/06/18 04/06/18 11:00 15:00 15:07 17:18 Temp 97.9 98.0 97.9 98.0 Pulse 56 57 56 56 Resp 18 B/P (MAP) 108/44 (65) 161/59 (93) 108/44 108/44 Pulse Ox 99 97 O2 Delivery Room Air 2L 04/06/18 04/06/18 04/06/18 04/06/18 19:59 20:00 20:35 21:09 Temp 97.6 98.1 97.6 98.1 Pulse 80 62 62 Resp 18 17 B/P (MAP) 106/60 (75) 114/51 (72) 114/51 Pulse Ox 94 100 O2 Delivery Room Air Nasal Cannula Room Air O2 Flow Rate 2.0 04/06/18 04/07/18 04/07/18 04/07/18 23:55 03:31 07:20 08:55 Temp 98.3 98.0 98.0 98.3 98.0 98.0 Pulse 61 72 63 63 Resp 18 B/P (MAP) 124/52 (76) 120/55 (76) 141/67 (91) 141/67 Pulse Ox 100 99 94 O2 Delivery Room Air Room Air Room Air 04/07/18 04/07/18 04/07/18 08:55 08:56 08:56 Pulse 63 63 63 B/P (MAP) 141/67 141/67 141/67 Intake and Output 04/06/18 04/06/18 04/07/18 15:00 23:00 07:00 Intake Total 600 ml 1300 ml Output Total 900 ml Balance 600 ml 1300 ml -900 ml OG WHEATLEY MD Apr 07, 2018 09:40
[2018-04-07 11:00] VITALS: BP 170/72
[2018-04-07 15:00] VITALS: BP 160/68
[2018-04-07 19:59] VITALS: BP 147/57
[2018-04-07] MEDS: ATORVASTATIN CALCIUM 20 MG TABLET PO SCH (20:19)
[2018-04-07 22:51] VITALS: BP 96/52
[2018-04-08 04:53] VITALS: BP 148/61
[2018-04-08 07:00] VITALS: BP 166/72
[2018-04-08] MEDS: FUROSEMIDE 40 MG TABLET. PO SCH (08:00)
[2018-04-08] MEDS: FOLIC ACID 1 MG TABLET. PO SCH (08:01)
[2018-04-08] MEDS: MULTIVITAMIN with MINERAL TABLET. PO SCH (08:01)
[2018-04-08] MEDS: GABAPENTIN 300 MG CAPSULE. PO SCH (08:01)
[2018-04-08] MEDS: CARVEDILOL 12.5 MG TABLET. PO SCH (08:02)
[2018-04-08] MEDS: LOSARTAN POTASSIUM 50 MG TABLET. PO SCH (08:02)
[2018-04-08] MEDS: hydrALAZINE 25 MG TABLET PO SCH (08:03)
[2018-04-08] MEDS: THIAMINE 100 MG TABLET. PO SCH (08:04)
--- NOTE | 2018-04-08 10:51 | PDOC3 ---
Discharge Summary Visit Information Date of Admission: Apr 03, 2018 Date of Discharge: Apr 08, 2018 Admitting Diagnosis Comment: Frequent falls at home Metabolic encephalopathy. Toxic encephalopathy. Alcohol intoxication, level 213 on 04/03. CHF.compensated HTN.controlled DM. Alcohol abuse. Smoking. No evidence of acute CVA this time. 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 Orbit obesity, BMI 41.2 Final Diagnosis Problems Medical Problems: (1) COPD (chronic obstructive pulmonary disease) Status: Acute (2) ETOH abuse Status: Acute (3) Fall Status: Acute Brief Hospital Course Allergies Allergies Coded Allergies Type Severity Reaction Last Updated Verified Penicillins Allergy Intermediate 04/21/16 Yes Sulfa (Sulfonamide Antibiotics) Allergy Intermediate 04/21/16 Yes iodine Allergy Intermediate 04/21/16 Yes piperacillin Allergy Intermediate 04/05/18 Yes Vital Signs Vital Signs Date Time Temp Pulse Resp B/P (MAP) Pulse Ox O2 Delivery O2 Flow Rate FiO2 04/08/18 08:03 64 166/72 04/08/18 07:00 98.2 20 94 Room Air 98.2 04/07/18 08:00 2.0 Brief Hospital Course Ms. Velásquez is a 82 old [place] female who lives with her son, admitted essentially because of metabolic encephalopathy but she does have history of alcohol, her levels were to 130 on admission. Took a couple days before her encephalopathy was resolved and for her to be sober, Advised sobrietry, 1:1 education done again today,. Also history of COPD hypertension etc. She does not take any of her meds. PCP is Dr. [place] on chart. She asks me to call her meds per [facility]. Essentially SNU recommended by PT but she does not want that. Medically ready to discharge. I have called all [facility] Rx [facility] to [facility], discharge time 32 mins greater than 50% DC education counseling and coordination Discharge Information Condition at Discharge: Improved, Stable Follow Up: Weeks (PCP when necessary) Disposition/Orders: D/C to Home Scheduled Atorvastatin Calcium (Atorvastatin Calcium) 20 Mg Tablet, 20 MG PO HS for FOR CHOLESTEROL, #30 Ref 0 (Reported) Entered as Reported by: JED RODRIGUEZ on 12/11/17 1103 Last Action: Continued on 04/04/18 0809 by UMESH SWAN Carvedilol (Carvedilol) 25 Mg Tablet, 1 TAB PO BIDWMEALS, #180 Ref 1 (Reported) Entered as Reported by: JED RODRIGUEZ on 12/11/171102 Last Action: Converted on 04/04/18808 by UMESH SWAN Diltiazem Hcl (Cardizem Cd) 180 Mg Cap.er.24h, 1 CAP PO DAILY, #90 Ref 1 ( Reported) Entered as Reported by: JED RODRIGUEZ on 12/11/171102 Last Action: Converted on 04/04/18808 by UMESH SWAN Gabapentin (Gabapentin) 300 Mg Capsule, 300 MG PO TID for Pain for 30 Days, ( Reported) Entered as Reported by: UMESH SWAN on 04/04/18 0744 Last Taken: 300mg PO TID on 04/04/18 0741 Last Action: Converted on 808 by UMESH SWAN Hydralazine Hcl (Hydralazine Hcl) 25 Mg Tablet, 1 TAB PO TID, #90 Ref 5 ( Reported) Entered as Reported by: JED RODRIGUEZ on 12/11/171102 Last Action: Converted on 04/04/18808 by UMESH SWAN Losartan Potassium (Losartan Potassium) 100 Mg Tablet, 100 MG PO DAILY, ( Reported) Entered as Reported by: JED RODRIGUEZ on 12/11/171102 Last Action: Converted on 04/04/18808 by OG WALL MD Apr 08, 2018 10:50
[2018-04-08 11:00] VITALS: BP 117/74
--- NOTE | 2018-04-09 14:09 | EEG ---
DATE OF SERVICE: 04/07/2018 EEG NUMBER: [id number]. OBJECTIVE: This is an 82-year-old female patient with history of mental status changes. Her alcohol level was above 200. EEG was requested to evaluate cerebral activity. METHODS: Twenty electrodes were applied according to the international 10-20 electrode placement system. EKG monitoring, hyperventilation, intermittent photic stimulation, monopolar and bipolar montages are routinely utilized. Record was obtained on a digital system with video monitoring. The patient's alcohol level on 04/03/2018 was above 200. FINDINGS: 1. Background: The patient was recorded in the awake and drowsy states. No actual sleep state was recorded. The overall background amplitude 10-13 microvolts. A posterior dominant rhythm of 7-8 Hz is observed. 2. Abnormalities: No specific epileptiform discharge or electrographic seizure is seen. No focal or diffuse slowing. 3. Activation: Hyperventilation was performed with good efforts and normal response. Intermittent photic stimulation was performed with photic driving. No specific epileptiform discharge or electrographic seizure induced by hyperventilation or intermittent photic stimulation. IMPRESSION: This EEG falls into the abnormal category of the study for the awake and drowsy states. No actual sleep state was recorded. The posterior dominant rhythm of 7-8 Hz is slow for age. No focal, lateralizing, specific epileptiform discharge or electrographic seizure is seen. NING DIEHL MD DR: MARIO/risa JOB#: [id number] / [id number] NEELA
== END 2018-04-08 13:45 | disposition home or self-care (01) | DRG 92 ==
LOC: ER 20:45 → 5 SOUTH 22:26
PROVIDERS: ADMIT Internal Medicine; ATTEND Internal Medicine
DX: G92 Toxic encephalopathy (principal); I42.9 Cardiomyopathy, unspecified; Z68.41 Body mass index [BMI] 40.0-44.9, adult; R29.6 Repeated falls; Y90.7 Blood alcohol level of 200-239 mg/100 ml; E11.51 Type 2 diabetes mellitus with diabetic peripheral angiopathy without gangrene; E66.9 Obesity, unspecified; F10.229 Alcohol dependence with intoxication, unspecified; F17.210 Nicotine dependence, cigarettes, uncomplicated; G89.29 Other chronic pain; I11.0 Hypertensive heart disease with heart failure; I25.2 Old myocardial infarction; I50.9 Heart failure, unspecified; J44.9 Chronic obstructive pulmonary disease, unspecified; W18.39XA Other fall on same level, initial encounter; K02.9 Dental caries, unspecified; K21.9 Gastro-esophageal reflux disease without esophagitis; M47.812 Spondylosis without myelopathy or radiculopathy, cervical region; Z96.643 Presence of artificial hip joint, bilateral; M19.90 Unspecified osteoarthritis, unspecified site; Z96.659 Presence of unspecified artificial knee joint; Z99.81 Dependence on supplemental oxygen; Y93.89 Activity, other specified; Y92.89 Other specified places as the place of occurrence of the external cause; Y99.8 Other external cause status; Z71.41 Alcohol abuse counseling and surveillance of alcoholic; Z88.0 Allergy status to penicillin; Z88.2 Allergy status to sulfonamides; Z88.8 Allergy status to other drugs, medicaments and biological substances
CPT/HCPCS: 36415; 70450; 70551; 71045; 72125; 73564; 76700; 80053; 80307; 81001; 82550; 82553; 82607; 83690; 83735; 83880; 84443; 84484; 85007; 85025; 93005; 93306; 93880; 94640; 94760; 95816; 96360; G0480; J1100; J3490; J7030; J7620; 97530; 99285-25; G0479

== ENCOUNTER 2018-11-19 10:31 | Emergency (ER) | payer OTHER ==
[~2018-11-19] VITALS: Ht 154.9 cm; Wt 90.3 kg
[~2018-11-19 10:31] MED LIST changes: -GABA-586 PO; +GABA300C18 PO; +HYDR-2761 PO; -HYDR-2762 PO; +HYDR-2765 PO; +LOSA-73 PO; +LOSA100T14 PO; -LOSA100T6 PO; -LOSA50TA6 PO; +METF500T16 PO; -OXYC-327 PO; +OXYC1TAB19 PO; +TRAM100C2 PO
[2018-11-19 10:37] VITALS: BP 157/68
--- NOTE | 2018-11-19 10:57 | PHYS DOC ---
Past Medical History Past Medical History: CHF, COPD, GERD Past Surgical History: Knee Replacement Additional Past Surgical Histo: hernia with mesh, bilateral hip and knees Alcohol Use: Heavy Drug Use: None Adult General Chief Complaint Chief Complaint: MECHANICAL FALL HPI HPI Patient is a 83 year old female presents to the ED complaining of trip and fall this morning. Patient states that she was walking in her house and tripped over a rug. States she landed on her left side. Complains of pain to head, neck , left shoulder and left hip. Patient has a history of left hip prosthesis. Describes the pain as sharp. Rates the pain as 7 out of 10. Denies LOC, vision changes, n/v, symptoms prior to fall or use of blood thinners. Review of Systems Review of Systems Constitutional: Denies fever or chills [] Eyes: Denies change in visual acuity, redness, or eye pain [] HENT: Denies nasal congestion or sore throat [] Respiratory: Denies cough or shortness of breath [] Cardiovascular: No additional information not addressed in HPI [] GI: Denies abdominal pain, nausea, vomiting, bloody stools or diarrhea [] : Denies dysuria or hematuria [] Musculoskeletal: Complains of left shoulder, left hip and neck pain. Integument: Denies rash or skin lesions [] Neurologic: Denies headache, focal weakness or sensory changes [] All other systems were reviewed and found to be within normal limits, except as documented in this note. Allergies Allergies Allergies Coded Allergies Type Severity Reaction Last Updated Verified Penicillins Allergy Intermediate 04/21/16 Yes Sulfa (Sulfonamide Antibiotics) Allergy Intermediate 04/21/16 Yes iodine Allergy Intermediate 04/21/16 Yes piperacillin Allergy Intermediate 04/05/18 Yes Physical Exam Physical Exam Constitutional: Well developed, well nourished, no acute distress, non-toxic appearance. [] HENT: Normocephalic, atraumatic, bilateral external ears normal, oropharynx moist, no oral exudates, nose normal. [] Eyes: PERRLA, EOMI, conjunctiva normal, no discharge. [] Neck: Normal range of motion, mild left lateral cervical tenderness, supple, no stridor. [] Cardiovascular:Heart rate regular rhythm, no murmur [] Lungs & Thorax: Bilateral breath sounds clear to auscultation [] Abdomen: Bowel sounds normal, soft, no tenderness, no masses, no pulsatile masses. [] Skin: Warm, dry, no erythema, no rash. [] Back: No tenderness, no CVA tenderness. [] Extremities: mild left lateral hip tenderness. no cyanosis, no clubbing, ROM intact, no edema. NV intact. No overlying skin changes.[] Neurologic: Alert and oriented X 3, normal motor function, normal sensory function, no focal deficits noted. [] Psychologic: Affect normal, judgement normal, mood normal. [] Current Patient Data Vital Signs Vital Signs Date Time Temp Pulse Resp B/P (MAP) Pulse Ox O2 Delivery O2 Flow Rate FiO2 11/19/18 10:37 98.2 65 18 157/68 (97) 99 Room Air 98.2 EKG EKG [] Radiology/Procedures Radiology/Procedures []PROCEDURE: CT HEAD AND CERVICAL SPINE WO CT scan of the head without contrast 11/19/2018 Clinical History: Fall with head injury. Technique: Unenhanced, contiguous, 5 mm axial sections were obtained through the head. One or more of the following individualized dose reduction techniques were utilized for this study: 1. Automated exposure control. 2. Adjustment of the mA and/or kV according to patient size. 3. Use of iterative reconstruction technique. Findings: Comparison study is dated 04/04/2018. There is generalized parenchymal atrophy. Areas of decreased attenuation are seen within the periventricular and subcortical white matter of both cerebral hemispheres consistent with areas of small vessel ischemic disease. No acute parenchymal abnormality is seen. No extra-axial fluid collection is noted. No skull fracture is seen. Impression: No acute intracranial abnormality is seen. CT scan of the cervical spine without contrast 11/19/2018 Clinical history: Fall with neck injury. Technique: Unenhanced, contiguous, 0.625 mm axial sections were obtained through the cervical spine. Axial, coronal and sagittal reconstructed images were obtained. One or more of the following individualized dose reduction techniques were utilized for this study: 1. Automated exposure control. 2. Adjustment of the mA and/or kV according to patient size. 3. Use of iterative reconstruction technique. Findings: Sagittal and coronal reconstructed images demonstrate straightening of the normal cervical lordosis. Degenerative changes consisting of varying degrees of disc space narrowing, vertebral endplate sclerosis and mild to moderate anterior vertebral body osteophyte formation are seen throughout the cervical disc spaces. No fracture or subluxation of the cervical vertebrae is seen. Degenerative changes are seen involving the uncovertebral and facet joints throughout the cervical disc spaces. Atherosclerotic calcification is seen in the region carotid bifurcations. Impression: No fracture or subluxation of the cervical vertebra is identified. PROCEDURE: SHOULDER 2+V LEFT Examination: 2 views of the left hip with the frontal view the pelvis and 2 views of the left shoulder HISTORY: History of fall, pain FINDINGS: Left shoulder: The humerus head is within the glenoid. Moderate joint space loss identified in the left glenohumeral joint and acromioclavicular joints likely degeneration. Left hip: Bilateral total hip orthoplasty changes in normal alignment. IMPRESSION: 1. No acute osseous findings. PROCEDURE: HIP LEFT 2V WITH PELVIS Examination: 2 views of the left hip with the frontal view the pelvis and 2 views of the left shoulder HISTORY: History of fall, pain FINDINGS: Left shoulder: The humerus head is within the glenoid. Moderate joint space loss identified in the left glenohumeral joint and acromioclavicular joints likely degeneration. Left hip: Bilateral total hip orthoplasty changes in normal alignment. IMPRESSION: 1. No acute osseous findings. Course & Med Decision Making Course & Med Decision Making Pertinent Labs and Imaging studies reviewed. (See chart for details) []Discussed imaging findings with patient. Patient's pain improved in the ED. States she is feeling much better. On reexamination, patient is able ambulate without assistance. No focal neural deficits. Discussed symptomatic treatment and at home medications. Discussed follow-up with PCP this week. Discussed reasons to return to the ED. Patient understands and agrees with plan. Dragon Disclaimer Dragon Disclaimer This electronic medical record was generated, in whole or in part, using a voice recognition dictation system. Departure Departure Impression: Primary Impression: Hip sprain Additional Impressions: Muscle strain Head injury Disposition: 01 HOME, SELF-CARE Condition: IMPROVED Referrals: AARON FARRAR MD (PCP) Patient Instructions: Head Injury, Adult, Joint Sprain, Muscle Strain Problem Qualifiers LESLIE TREVIZO Nov 19, 2018 10:57
--- NOTE | 2018-11-19 11:35 | RAD ---
Examination: 2 views of the left hip with the frontal view the pelvis and 2 views of the left shoulder HISTORY: History of fall, pain FINDINGS: Left shoulder: The humerus head is within the glenoid. Moderate joint space loss identified in the left glenohumeral joint and acromioclavicular joints likely degeneration. Left hip: Bilateral total hip orthoplasty changes in normal alignment. IMPRESSION: 1. No acute osseous findings. Electronically signed by: Lupillo Pineda MD (11/19/2018 11:31 AM) [id number]
--- NOTE | 2018-11-19 11:51 | RAD ---
CT scan of the head without contrast 11/19/2018 Clinical History: Fall with head injury. Technique: Unenhanced, contiguous, 5 mm axial sections were obtained through the head. One or more of the following individualized dose reduction techniques were utilized for this study: 1. Automated exposure control. 2. Adjustment of the mA and/or kV according to patient size. 3. Use of iterative reconstruction technique. Findings: Comparison study is dated 04/04/2018. There is generalized parenchymal atrophy. Areas of decreased attenuation are seen within the periventricular and subcortical white matter of both cerebral hemispheres consistent with areas of small vessel ischemic disease. No acute parenchymal abnormality is seen. No extra-axial fluid collection is noted. No skull fracture is seen. Impression: No acute intracranial abnormality is seen. CT scan of the cervical spine without contrast 11/19/2018 Clinical history: Fall with neck injury. Technique: Unenhanced, contiguous, 0.625 mm axial sections were obtained through the cervical spine. Axial, coronal and sagittal reconstructed images were obtained. One or more of the following individualized dose reduction techniques were utilized for this study: 1. Automated exposure control. 2. Adjustment of the mA and/or kV according to patient size. 3. Use of iterative reconstruction technique. Findings: Sagittal and coronal reconstructed images demonstrate straightening of the normal cervical lordosis. Degenerative changes consisting of varying degrees of disc space narrowing, vertebral endplate sclerosis and mild to moderate anterior vertebral body osteophyte formation are seen throughout the cervical disc spaces. No fracture or subluxation of the cervical vertebrae is seen. Degenerative changes are seen involving the uncovertebral and facet joints throughout the cervical disc spaces. Atherosclerotic calcification is seen in the region carotid bifurcations. Impression: No fracture or subluxation of the cervical vertebra is identified. Electronically signed by: Benito Beal MD (11/19/2018 11:48 AM) [id number]
[2019-01-23] MEDS ORDERED: ALBU2.5V8 NEB (12:08)
[2019-01-23] MEDS ORDERED: BENZ-8 PO (12:08)
[2019-01-23] MEDS ORDERED: DOXY100T PO (12:08)
[2019-01-23] MEDS ORDERED: FURO40TA4 PO (12:08)
[2019-01-23] MEDS ORDERED: Nicotine 21MG TD (12:08)
[2019-01-23] MEDS ORDERED: GUAI5SYR PO (12:08)
[2019-01-23] MEDS ORDERED: POTA20TA4 PO (12:08)
[2019-01-23] MEDS ORDERED: BUDE180A IH (12:09)
== END 2018-11-19 13:18 | disposition home or self-care (01) ==
LOC: ER 10:31
DX: S73.192A Other sprain of left hip, initial encounter (principal); S16.1XXA Strain of muscle, fascia and tendon at neck level, initial encounter; S09.8XXA Other specified injuries of head, initial encounter; M25.512 Pain in left shoulder; J44.9 Chronic obstructive pulmonary disease, unspecified; K21.9 Gastro-esophageal reflux disease without esophagitis; I50.9 Heart failure, unspecified; Z96.643 Presence of artificial hip joint, bilateral; Z88.0 Allergy status to penicillin; Z88.2 Allergy status to sulfonamides; Z88.1 Allergy status to other antibiotic agents; Z91.041 Radiographic dye allergy status; W18.09XA Striking against other object with subsequent fall, initial encounter; Y93.01 Activity, walking, marching and hiking; Y92.009 Unspecified place in unspecified non-institutional (private) residence as the place of occurrence of the external cause; Y99.8 Other external cause status
CPT/HCPCS: 70450; 72125; 73030; 73502; 99284

== ENCOUNTER 2019-02-19 06:10 | Emergency (ER) | payer OTHER, MEDICAID ==
[~2019-02-19] VITALS: Ht 154.9 cm; Wt 96.6 kg
[~2019-02-19 06:10] MED LIST changes: +ALBU2.5V8 NEB; +BENZ-8 PO; +BUDE180A IH; +GUAI5SYR PO; +Nicotine 21MG TD; +POTA20TA4 PO
[2019-02-19] MEDS ORDERED: oxyCODONE/APAP 10/325 1 TAB TABLET PO ONE (07:00)
--- NOTE | 2019-02-19 07:23 | PHYS DOC ---
Past Medical History Past Medical History: CHF, COPD, GERD Past Surgical History: Knee Replacement Additional Past Surgical Histo: hernia with mesh, bilateral hip and knees Alcohol Use: Heavy Drug Use: None Adult General Chief Complaint Chief Complaint: UPPER EXTREMITY PAIN HPI HPI Patient is a 83 year old female with history of osteoarthritis of right shoulder chronic right shoulder pain who presents with right shoulder pain this morning upon waking. Patient didn't take any home pain medications. She states pain is worse with palpation, shoulder movement radiates to back or neck. Denies extremity weakness loss of sensation. This is not a new complaint. Denies chest pain shortness of breath, nausea vomiting or sweats. No other acute symptoms or complaints. [] Review of Systems Review of Systems ROS as per HPI All other systems were reviewed and found to be within normal limits, except as documented in this note. Current Medications Current Medications Current Medications Medications (Trade) Dose Ordered Sig/Pam Start Time Stop Time Status Last Admin Dose Admin Oxycodone/ Acetaminophen (Percocet 10/325) 1 tab 1X ONCE 02/19/19 07:00 02/19/19 07:01 DC 02/19/19 06:42 1 TAB Prednisone (Prednisone) 60 mg 1X ONCE 02/19/19 08:15 02/19/19 08:16 DC 02/19/19 08:18 60 MG Allergies Allergies Allergies Coded Allergies Type Severity Reaction Last Updated Verified Penicillins Allergy Intermediate 04/21/16 Yes Sulfa (Sulfonamide Antibiotics) Allergy Intermediate 04/21/16 Yes iodine Allergy Intermediate 04/21/16 Yes piperacillin Allergy Intermediate 04/05/18 Yes Physical Exam Physical Exam Constitutional: Well developed, well nourished, no acute distress, non-toxic appearance. [] HENT: Normocephalic, atraumatic, bilateral external ears normal, oropharynx moist, no oral exudates, nose normal. [] Eyes: PERRLA, EOMI, conjunctiva normal, no discharge. [] Neck: Normal range of motion, no midline neck pain, tenderness, supple, no stridor. [] Cardiovascular:Heart rate regular rhythm, no murmur [] Lungs & Thorax: Bilateral breath sounds clear to auscultation [] Extremities: R shoulder, pain reproduces with palpation, worse with range of motion. No deformity or swelling appreciated [] Neurologic: Alert and oriented X 3, normal motor function, normal sensory function, no focal deficits noted. [] Psychologic: Affect normal, judgement normal, mood normal. [] Current Patient Data Vital Signs Vital Signs Date Time Temp Pulse Resp B/P (MAP) Pulse Ox O2 Delivery O2 Flow Rate FiO2 02/19/19 07:43 78 18 192/79 (116) 91 Room Air 02/19/19 06:10 98.3 98.3 Lab Values Laboratory Tests Test 02/19/19 07:10 White Blood Count 7.4 x10^3/uL (4.0-11.0) Red Blood Count 3.96 x10^6/uL (3.50-5.40) Hemoglobin 12.0 g/dL (12.0-15.5) Hematocrit 36.8 % (36.0-47.0) Mean Corpuscular Volume 93 fL (79-100) Mean Corpuscular Hemoglobin 30 pg (25-35) Mean Corpuscular Hemoglobin Concent 33 g/dL (31-37) Red Cell Distribution Width 16.3 % (11.5-14.5) H Platelet Count 285 x10^3/uL (140-400) Neutrophils (%) (Auto) 53 % (31-73) Lymphocytes (%) (Auto) 32 % (24-48) Monocytes (%) (Auto) 13 % (0-9) H Eosinophils (%) (Auto) 2 % (0-3) Basophils (%) (Auto) 1 % (0-3) Neutrophils # (Auto) 3.9 x10^3uL (1.8-7.7) Lymphocytes # (Auto) 2.4 x10^3/uL (1.0-4.8) Monocytes # (Auto) 1.0 x10^3/uL (0.0-1.1) Eosinophils # (Auto) 0.1 x10^3/uL (0.0-0.7) Basophils # (Auto) 0.0 x10^3/uL (0.0-0.2) Sodium Level 142 mmol/L (136-145) Potassium Level 3.5 mmol/L (3.5-5.1) Chloride Level 105 mmol/L (98-107) Carbon Dioxide Level 30 mmol/L (21-32) Anion Gap 7 (6-14) Blood Urea Nitrogen 18 mg/dL (7-20) Creatinine 0.9 mg/dL (0.6-1.0) Estimated GFR (Cockcroft-Gault) 72.7 BUN/Creatinine Ratio 20 (6-20) Glucose Level 115 mg/dL (70-99) H Calcium Level 9.1 mg/dL (8.5-10.1) Total Bilirubin 0.3 mg/dL (0.2-1.0) Aspartate Amino Transferase (AST) 44 U/L (15-37) H Alanine Aminotransferase (ALT) 51 U/L (14-59) Alkaline Phosphatase 60 U/L (46-116) Troponin I Quantitative < 0.017 ng/mL (0.000-0.055) Total Protein 6.9 g/dL (6.4-8.2) Albumin 3.0 g/dL (3.4-5.0) L Albumin/Globulin Ratio 0.8 (1.0-1.7) L Laboratory Tests 02/19/19 07:10 Laboratory Tests 02/19/19 07:10 EKG EKG [EKG: reviewed ] Radiology/Procedures Radiology/Procedures [Chest x-ray/right shoulder: Reviewed] Course & Med Decision Making Course & Med Decision Making Pertinent Labs and Imaging studies reviewed. (See chart for details) [Patient with right shoulder plan/arthropathy likely made worse due to weather. Pain address without improvement. No chest pain shortness breath. Lab work EKG and imaging otherwise reassuring. Recommend supportive care with PCP follow-up. Return precautions reviewed] Dragon Disclaimer Dragon Disclaimer This electronic medical record was generated, in whole or in part, using a voice recognition dictation system. Departure Departure Impression: Primary Impression: AC joint arthropathy Disposition: ADMITTED INPATIENT Condition: IMPROVED Referrals: AARON FARRAR MD (PCP) Scripts Tramadol Hcl (TRAMADOL HCL) 50 Mg Tablet 50-100 MG PO Q6H PRN for PAIN for 3 Days, #15 TAB 0 Refills Prov: KRISH FRASER DO 02/19/19 KRISH FRASER DO Feb 19, 2019 07:23
[2019-02-19 07:43] VITALS: BP 192/79
[2019-02-19 07:43] LABS: ALBUMIN/GLOBULIN RATIO 0.8 (1.0-1.7); BASO % 1 % (0-3); CALCIUM 9.1 mg/dL (8.5-10.1); CREATININE 0.9 mg/dL (0.6-1.0); EOS # 0.1 x10^3/uL (0.0-0.7); EOS % 2 % (0-3); GFR 72.7; HEMATOCRIT 36.8 % (36.0-47.0); LYMPH # 2.4 x10^3/uL (1.0-4.8); LYMPH % 32 % (24-48); MEAN CORPUSCULAR HEMOGLOBIN 30 pg (25-35); MEAN CORPUSCULAR HGB CONC 33 g/dL (31-37); MEAN CORPUSCULAR VOLUME 93 fL (79-100); MONO % 13 % (0-9); NEUT # 3.9 x10^3uL (1.8-7.7); NEUT % 53 % (31-73); PLATELET COUNT 285 x10^3/uL (140-400); POTASSIUM 3.5 mmol/L (3.5-5.1); RED BLOOD COUNT 3.96 x10^6/uL (3.50-5.40); RED CELL DISTRIBUTION WIDTH 16.3 % (11.5-14.5); TOTAL BILIRUBIN 0.3 mg/dL (0.2-1.0); TOTAL PROTEIN 6.9 g/dL (6.4-8.2); WHITE BLOOD COUNT 7.4 x10^3/uL (4.0-11.0)
--- NOTE | 2019-02-19 07:44 | RAD ---
SHOULDER 2+V RIGHT, CHEST AP ONLY Clinical Indication: Shoulder pain. Cough for one month. Comparison: 01/21/2019 portable chest x-ray exam. Findings: Portable upright frontal view of the chest was obtained. 3 images of the right shoulder were obtained and these include internal rotation, external rotation, and scapular Y views. The cardiomediastinal silhouette is borderline in size but this may in part relate to technique. Lungs are clear. There is no pneumothorax. No pleural effusion is appreciated. No acute bone abnormality. Degenerative narrowing of the left acromioclavicular joint space is present. No acute fracture or bony destruction identified. Right acromioclavicular joint space is adequate for age. No dislocation identified. Glenohumeral joint space is not optimally profiled on images provided. IMPRESSION: No acute cardiopulmonary process. Degenerative changes of the right shoulder which appears consistent with age on this limited exam. Electronically signed by: Jeronimo Mckeon MD (02/19/2019 7:41 AM) [facility]
[2019-02-19] MEDS ORDERED: TRAM50TA PO (08:12)
[2019-02-19] MEDS ORDERED: predniSONE 20 MG TABLET PO ONE (08:15)
--- NOTE | 2019-02-19 09:10 | EKG ---
[facility] [address] [place] [address] Test Date: 2019-02-19 Test Time: 06:19:20 Pat Name: MATTHEW PADILLA Department: Room: Gender: F Apron Operator: : 1935 Requested By: KRISH FRASER Order Number: [id number] Reading MD: Measurements Intervals [place] Rate: 70 P: 28 PA: 354 QRS: -5 QRSD: 90 T: 13 QT: 392 QTc: 426 Interpretive Statements SINUS RHYTHM PROLONGED PA INTERVAL LEFTWARD AXIS NON SPECIFIC T ABNORMALITY ABNORMAL ECG No previous ECG available for comparison
== END 2019-02-19 08:20 | disposition home or self-care (01) ==
LOC: ER 06:10
DX: M19.011 Primary osteoarthritis, right shoulder (principal); G89.29 Other chronic pain; R05 Cough; R94.31 Abnormal electrocardiogram [ECG] [EKG]; K21.9 Gastro-esophageal reflux disease without esophagitis; J44.9 Chronic obstructive pulmonary disease, unspecified; F10.20 Alcohol dependence, uncomplicated; Y90.9 Presence of alcohol in blood, level not specified; Z86.79 Personal history of other diseases of the circulatory system; Z88.0 Allergy status to penicillin; Z88.1 Allergy status to other antibiotic agents; Z88.2 Allergy status to sulfonamides; Z91.041 Radiographic dye allergy status
CPT/HCPCS: 36415; 71045; 73030; 80053; 84484; 85025; 93005; 99285; J7512

== ENCOUNTER → 2019-06-03 | Outpatient (CLI) | payer OTHER, MEDICAID ==
[~2019-06-03] MED LIST changes: +TRAM50TA PO
--- NOTE | 2019-06-03 12:17 | RAD ---
EXAM: RENAL/RETROPERITONAL ULTRASOUND. HISTORY: Renal mass. COMPARISON: 07/18/2012. FINDINGS: Ultrasound of the kidneys, bladder and retroperitoneum was performed. The right kidney measures 10.3 cm. Cortical thickness and echogenicity are preserved. There is no hydronephrosis. The left kidney measures 10.0 cm. Cortical thickness and echogenicity are preserved. There is no hydronephrosis. A benign cyst at the lower pole measures 2.3 x 2.2 cm. Images of the bladder reveal no gross abnormality. The abdominal aorta and inferior vena cava are grossly patent and normal in caliber. IMPRESSION: 1. 2.3 cm benign cyst at the left lower pole. No other suspicious lesion is identified. Correlate for the site of concern. CT or MRI with/without contrast could further evaluate if there is persistent concern. Electronically signed by: Anai Salomon MD (06/03/2019 12:14 PM) [facility]
== END | disposition home or self-care (01) ==
LOC: US 10:28
PROVIDERS: ATTEND Family Medicine
DX: N28.1 Cyst of kidney, acquired (principal)
CPT/HCPCS: 76770

== ENCOUNTER → 2019-12-02 | Outpatient (CLI) | payer OTHER, MEDICAID ==
[~2019-12-02] MED LIST changes: +FLUO20CA20 PO; -FLUO20CA8 PO; -POTA20TA82 PO
--- NOTE | 2019-12-02 11:22 | KCIC ---
Examination: CT ABD PEL W/ORAL CONTRST ONLY History: Left lower quadrant pain which radiates to the sternum. Hiatal hernia repair years ago. Comparison/Correlation: None Findings: Axial images of the abdomen and pelvis were obtained following oral contrast administration. Sagittal and coronal reformatted images were provided Visualized lung bases are unremarkable. No hiatal hernia is identified. Mild diffuse fatty infiltration of the liver is present. Spleen is normal. Pancreas is unremarkable. Adrenal glands are normal. Right upper to interpolar level renal cyst with peripheral calcification is present. The cystic structures useful for characterization measuring less than 1 cm. At the posterolateral left renal inferior pole, there is a 2 cm x 2.1 cm intermediate density mass with Hounsfield units of 35 on axial image 30. This is also seen on coronal image 41 and has 2.1. There are no enlarged abdominal or pelvic lymph nodes. No ascites or pelvic free fluid. No extraluminal gas. No inflammatory finding about the cecum identified. Appendix is not seen. Urinary bladder is partially obscured due to significant streak artifact related to bilateral hip joint prostheses. Subchondral lucencies in particular involve the right acetabulum just adjacent to the prosthesis. No soft tissue mass suspected. No ascites or pelvic free fluid. Minimal anterolisthesis of L4 in relation L5 is by 0.43 cm. Facet joint degenerative changes at multiple levels of the lumbar spine are present. Diffuse calcific involvement of the abdominal aorta and iliac arteries subchondral lucencies involving the right hip joint prosthesis is significant calcific involvement of the left proximal renal artery is noted. Impression: Fatty infiltration of the liver. Left renal inferior pole intermediate density structure which may represent a complex cyst or a mass. Further evaluation with CT of the kidneys with contrast and renal protocol is recommended for more complete assessment. Alternatively, MRI of the kidneys without and with contrast may be performed. PQRS Compliance Statement: One or more of the following individualized dose reduction techniques were utilized for this examination: 1. Automated exposure control 2. Adjustment of the mA and/or kV according to patient size 3. Use of iterative reconstruction technique Electronically signed by: Jeronimo Mckeon MD (12/02/2019 11:19 AM) [id number]
== END | disposition home or self-care (01) ==
LOC: KCIC CT 09:05
PROVIDERS: ATTEND Family Medicine
DX: K76.0 Fatty (change of) liver, not elsewhere classified (principal); N28.1 Cyst of kidney, acquired; I73.9 Peripheral vascular disease, unspecified; M43.16 Spondylolisthesis, lumbar region; M47.816 Spondylosis without myelopathy or radiculopathy, lumbar region; I70.0 Atherosclerosis of aorta; Z96.641 Presence of right artificial hip joint
CPT/HCPCS: 74176

== ENCOUNTER 2019-12-27 22:09 | Emergency (ER) | payer OTHER, MEDICAID ==
[~2019-12-27] VITALS: Ht 154.9 cm; Wt 100.9 kg
[2019-12-27] MEDS ORDERED: IV NORMAL SALINE 1000ML BAG 1,000 ML IV SCH (22:30)
[2019-12-27 22:45] LABS: BASO # 0.1 x10^3/uL (0.0-0.2); BASO % 1 % (0-3); EOS # 0.1 x10^3/uL (0.0-0.7); EOS % 1 % (0-3); HEMATOCRIT 37.5 % (36.0-47.0); HEMOGLOBIN 12.5 g/dL (12.0-15.5); LYMPH # 3.7 x10^3/uL (1.0-4.8); LYMPH % 35 % (24-48); MEAN CORPUSCULAR HEMOGLOBIN 31 pg (25-35); MEAN CORPUSCULAR HGB CONC 33 g/dL (31-37); MEAN CORPUSCULAR VOLUME 92 fL (79-100); MONO # 0.8 x10^3/uL (0.0-1.1); MONO % 8 % (0-9); NEUT % 56 % (31-73); PLATELET COUNT 258 x10^3/uL (140-400); RED BLOOD COUNT 4.08 x10^6/uL (3.50-5.40); RED CELL DISTRIBUTION WIDTH 15.1 % (11.5-14.5); WHITE BLOOD COUNT 10.7 x10^3/uL (4.0-11.0)
[2019-12-27] MEDS: fentaNYL PF VIAL 100 MCG/2 ML VIAL IV PRN (22:49)
[2019-12-27 22:59] LABS: CALCIUM 8.6 mg/dL (8.5-10.1); CREATININE 0.8 mg/dL (0.6-1.0); GFR 83.1; POTASSIUM 3.6 mmol/L (3.5-5.1)
[2019-12-27 23:03] LABS: ALBUMIN/GLOBULIN RATIO 0.8 (1.0-1.7); MAGNESIUM 1.3 mg/dL (1.8-2.4); TOTAL BILIRUBIN 0.1 mg/dL (0.2-1.0)
--- NOTE | 2019-12-27 23:10 | RAD ---
PORTABLE CHEST 1V Clinical History: Chest wall pain Technique: AP view of the chest was obtained at 12/27/2019 10:18 PM. Comparison: February 19, 2019. Findings: The cardiomediastinal silhouette is normal. The pulmonary vasculature is normal. The lungs and pleural margins are clear. This study is slightly underpenetrated secondary large body habitus. Impression: No evidence of an acute cardiopulmonary process. Electronically signed by: Jerardo Mayers III, MD (12/27/2019 11:07 PM) [id number]
--- NOTE | 2019-12-27 23:16 | RAD ---
Abdominal and Pelvis CT, Without Contrast: History: Upper abdominal pain and lower chest wall pain Comparison: December 02, 2019. Procedure: Axial images are obtained of the abdomen and pelvis, without IV or oral contrast. Oral Contrast: No Findings: Evaluation of solid organs is limited without contrast. Liver: Normal. Spleen: Normal. Pancreas: Normal. Adrenal Glands: Normal. Kidneys: There is a 1.6 cm lesion in the mid right kidney which is partially calcified and partially hypoechoic attenuating. There is a hyperintense 2.3 cm lesion arising posterior laterally from the lower pole of left kidney. There is no free air or free fluid. There is no lymphadenopathy. There is significant beam Mead artifact in the low pelvis due to prior bilateral total hip arthroplasty. The urinary bladder is not well visualized but appears normal. The appendix is not identified. The gallbladder is seen and is likely removed. There is no pericolonic inflammation identified. Impression: 1. Indeterminate lesions in the kidneys bilaterally were seen previously. Renal cell carcinoma cannot be excluded but lesions of this size can be followed in 6 month intervals. 2. Stable appearance of the abdomen and pelvis. End impression PQRS Compliance Statement: One or more of the following individualized dose reduction techniques were utilized for this examination: 1. Automated exposure control 2. Adjustment of the mA and/or kV according to patient size 3. Use of iterative reconstruction technique Electronically signed by: Jerardo Mayers III, MD (12/27/2019 11:13 PM) [id number]
--- NOTE | 2019-12-27 23:36 | PHYS DOC ---
Past Medical History Past Medical History: CHF, COPD, GERD Past Surgical History: Knee Replacement Additional Past Surgical Histo: hernia with mesh, bilateral hip and knees Smoking Status: Current Every Day Smoker Alcohol Use: Heavy Drug Use: None General Adult EDM: Chief Complaint: BREAST PAIN/INJURY HPI: HPI: Patient is a 84 year old female who presents with complaint of left-sided chest wall discomfort that started about a week ago. Patient states that she was seen by her doctor earlier and had been given pain pills but she states that that is not helping. She states that is not a pain that it is a cramp. She states that cramp is worsened with some movements. She denies any shortness of breath or cough. She states that nothing is improving the symptoms. Patient has had no fever, nausea, vomiting or abdominal pain. [] Review of Systems: Review of Systems: Constitutional: Denies fever or chills. [] Respiratory: Denies cough or shortness of breath. [] Cardiovascular: Complains of left lower chest wall pain/cramping. [] GI: Denies abdominal pain, nausea, vomiting or diarrhea. [] Integument: Denies rash. [] Neurologic: Denies headache, focal weakness or sensory changes. [] A full 10 point review of systems has been reviewed and is otherwise negative. Heart Score: Risk Factors: Risk Factors: DM, Current or recent (<one month) smoker, HTN, HLP, family history of CAD, obesity. Risk Scores: Score 0 - 3: 2.5% MACE over next 6 weeks - Discharge Home Score 4 - 6: 20.3% MACE over next 6 weeks - Admit for Clinical Observation Score 7 - 10: 72.7% MACE over next 6 weeks - Early Invasive Strategies Current Medications: Current Medications Medications (Trade) Dose Ordered Sig/Pam Start Time Stop Time Status Last Admin Dose Admin Fentanyl Citrate (Fentanyl 2ml Vial) 25 mcg PRN Q15MIN PRN 12/27/19 22:30 12/28/19 22:29 12/27/19 22:49 25 MCG Sodium Chloride 1,000 ml @ 1,000 mls/hr Q1H 12/27/19 22:30 12/27/19 23:29 DC 12/27/19 22:48 1,000 MLS/HR Allergies: Allergies: Allergies Coded Allergies Type Severity Reaction Last Updated Verified Penicillins Allergy Intermediate 04/21/16 Yes Sulfa (Sulfonamide Antibiotics) Allergy Intermediate 04/21/16 Yes iodine Allergy Intermediate 04/21/16 Yes piperacillin Allergy Intermediate 04/05/18 Yes Physical Exam: PE: Constitutional: Well developed, well nourished, no acute distress, non-toxic appearance. [] HENT: Normocephalic, atraumatic, bilateral external ears normal, oropharynx moist, no oral exudates, nose normal. [] Eyes: PERRLA, EOMI, conjunctiva normal, no discharge. [] Neck: Normal range of motion, no tenderness, supple, no stridor. [] Cardiovascular: Regular rate and rhythm. There is reproducible tenderness along the left lower rib margin, extending all the way around to the back [] Lungs & Thorax: Bilateral breath sounds clear to auscultation [] Abdomen: Bowel sounds normal, soft, no tenderness. [] Skin: Warm, dry, no erythema, no rash. [] Extremities: No tenderness, no cyanosis, no clubbing, ROM intact. [] Neurologic: Alert and oriented X 3, no focal deficits noted. [] Current Patient Data: Labs: Laboratory Tests Test 12/27/19 22:35 White Blood Count 10.7 x10^3/uL (4.0-11.0) Red Blood Count 4.08 x10^6/uL (3.50-5.40) Hemoglobin 12.5 g/dL (12.0-15.5) Hematocrit 37.5 % (36.0-47.0) Mean Corpuscular Volume 92 fL (79-100) Mean Corpuscular Hemoglobin 31 pg (25-35) Mean Corpuscular Hemoglobin Concent 33 g/dL (31-37) Red Cell Distribution Width 15.1 % (11.5-14.5) H Platelet Count 258 x10^3/uL (140-400) Neutrophils (%) (Auto) 56 % (31-73) Lymphocytes (%) (Auto) 35 % (24-48) Monocytes (%) (Auto) 8 % (0-9) Eosinophils (%) (Auto) 1 % (0-3) Basophils (%) (Auto) 1 % (0-3) Neutrophils # (Auto) 6.0 x10^3/uL (1.8-7.7) Lymphocytes # (Auto) 3.7 x10^3/uL (1.0-4.8) Monocytes # (Auto) 0.8 x10^3/uL (0.0-1.1) Eosinophils # (Auto) 0.1 x10^3/uL (0.0-0.7) Basophils # (Auto) 0.1 x10^3/uL (0.0-0.2) Sodium Level 143 mmol/L (136-145) Potassium Level 3.6 mmol/L (3.5-5.1) Chloride Level 106 mmol/L (98-107) Carbon Dioxide Level 27 mmol/L (21-32) Anion Gap 10 (6-14) Blood Urea Nitrogen 13 mg/dL (7-20) Creatinine 0.8 mg/dL (0.6-1.0) Estimated GFR (Cockcroft-Gault) 83.1 BUN/Creatinine Ratio 16 (6-20) Glucose Level 171 mg/dL (70-99) H Calcium Level 8.6 mg/dL (8.5-10.1) Magnesium Level 1.3 mg/dL (1.8-2.4) L Total Bilirubin 0.1 mg/dL (0.2-1.0) L Aspartate Amino Transferase (AST) 51 U/L (15-37) H Alanine Aminotransferase (ALT) 73 U/L (14-59) H Alkaline Phosphatase 64 U/L (46-116) Troponin I Quantitative < 0.017 ng/mL (0.000-0.055) MC-Huz-F-Type Natriuretic Peptide 240 pg/mL (0-449) Total Protein 7.0 g/dL (6.4-8.2) Albumin 3.0 g/dL (3.4-5.0) L Albumin/Globulin Ratio 0.8 (1.0-1.7) L Laboratory Tests 12/27/19 22:35 Laboratory Tests 12/27/19 22:35 Vital Signs: Vital Signs Date Time Temp Pulse Resp B/P (MAP) Pulse Ox O2 Delivery O2 Flow Rate FiO2 12/27/19 22:49 24 98 Room Air EKG: EKG: EKG demonstrates normal sinus rhythm with rate of 78. [] Radiology/Procedures: Radiology/Procedures: [] Impression: PROCEDURE: CT ABDOMEN PELVIS WO CONTRAST Abdominal and Pelvis CT, Without Contrast: History: Upper abdominal pain and lower chest wall pain Comparison: December 02, 2019. Procedure: Axial images are obtained of the abdomen and pelvis, without IV or oral contrast. Oral Contrast: No Findings: Evaluation of solid organs is limited without contrast. Liver: Normal. Spleen: Normal. Pancreas: Normal. Adrenal Glands: Normal. Kidneys: There is a 1.6 cm lesion in the mid right kidney which is partially calcified and partially hypoechoic attenuating. There is a hyperintense 2.3 cm lesion arising posterior laterally from the lower pole of left kidney. There is no free air or free fluid. There is no lymphadenopathy. There is significant beam Mead artifact in the low pelvis due to prior bilateral total hip arthroplasty. The urinary bladder is not well visualized but appears normal. The appendix is not identified. The gallbladder is seen and is likely removed. There is no pericolonic inflammation identified. Impression: 1. Indeterminate lesions in the kidneys bilaterally were seen previously. Renal cell carcinoma cannot be excluded but lesions of this size can be followed in 6 month intervals. 2. Stable appearance of the abdomen and pelvis. End impression PQRS Compliance Statement: One or more of the following individualized dose reduction techniques were utilized for this examination: 1. Automated exposure control 2. Adjustment of the mA and/or kV according to patient size 3. Use of iterative reconstruction technique Electronically signed by: Sanjay Fowler III, MD (12/27/2019 11:13 PM) [id number] DICTATED and SIGNED BY: SANJAY FOWLER III, MD DATE: 12/27/19 2313 PROCEDURE: PORTABLE CHEST 1V PORTABLE CHEST 1V Clinical History: Chest wall pain Technique: AP view of the chest was obtained at 12/27/2019 10:18 PM. Comparison: February 19, 2019. Findings: The cardiomediastinal silhouette is normal. The pulmonary vasculature is normal. The lungs and pleural margins are clear. This study is slightly underpenetrated secondary large body habitus. Impression: No evidence of an acute cardiopulmonary process. Electronically signed by: Sanjay Fowler III, MD (12/27/2019 11:07 PM) [id number] Course & Med Decision Making: Course & Med Decision Making Pertinent Labs and Imaging studies reviewed. (See chart for details) [] Dragon Disclaimer: Dragon Disclaimer: This electronic medical record was generated, in whole or in part, using a voice recognition dictation system. Departure Departure Impression: Primary Impression: Costochondritis Additional Impression: Hypomagnesemia Disposition: HOME, SELF-CARE Condition: STABLE Referrals: AARON FARRAR MD (PCP) Patient Instructions: Costochondritis, Hypomagnesemia Scripts Orphenadrine Citrate (ORPHENADRINE CITRATE) 100 Mg Tablet.er 1 TAB PO BID PRN for MUSCLE SPASMS, #14 TAB Prov: CARLYN ROBERTS Jr. DO 12/28/19 Methylprednisolone (MEDROL) 4 Mg Tab.ds.pk 1 PKG PO UD, #1 PKG Prov: CARLYN ROBERTS Jr. DO 12/28/19 CARLYN ROBERTS Jr. DO December 27, 2019 23:36
[2019-12-27] MEDS ORDERED: MAGNESIUM SULFATE 2GM 50 ML IV ONE (23:45)
[2019-12-28] MEDS ORDERED: ORPH100T PO (00:38)
[2019-12-28] MEDS ORDERED: METH4TAB2 PO (00:38)
[2019-12-28] MEDS: fentaNYL PF VIAL 100 MCG/2 ML VIAL IV PRN (01:27)
[2019-12-28 02:06] VITALS: BP 165/60
--- NOTE | 2019-12-30 06:59 | EKG ---
[facility] [address] [place] [address] Test Date: 2019-12-27 Test Time: 22:26:23 Pat Name: MATTHEW PADILLA Department: Room: Gender: F Nurses Assistant: : [id number] Requested By: CARLYN ROBERTS Order Number: [id number] Reading MD: Riccardo Granados MD Measurements Intervals [place] Rate: 78 P: 90 [place]: 294 QRS: -11 QRSD: 92 T: 78 QT: 372 QTc: 428 Interpretive Statements SINUS RHYTHM PROLONGED [place] INTERVAL Electronically Signed On 12-30-2019 9:17:58 CDT by Riccardo Granados MD
== END 2019-12-28 02:15 | disposition home or self-care (01) ==
LOC: ER 22:09
DX: M94.0 Chondrocostal junction syndrome [Tietze] (principal); E83.42 Hypomagnesemia; K21.9 Gastro-esophageal reflux disease without esophagitis; J44.9 Chronic obstructive pulmonary disease, unspecified; F17.200 Nicotine dependence, unspecified, uncomplicated; F10.20 Alcohol dependence, uncomplicated; Y90.9 Presence of alcohol in blood, level not specified; Z86.79 Personal history of other diseases of the circulatory system; Z88.0 Allergy status to penicillin; Z88.1 Allergy status to other antibiotic agents; Z88.2 Allergy status to sulfonamides; Z88.8 Allergy status to other drugs, medicaments and biological substances
CPT/HCPCS: 36415; 71045; 74176; 80053; 83735; 83880; 84484; 85025; 93005; 96365; 96366; 96375; 96376; 99285; J3010; J3475; J7030; 96361

== ENCOUNTER 2020-03-06 19:13 | Emergency (ER) | payer OTHER, MEDICAID ==
[~2020-03-06] VITALS: Ht 154.9 cm; Wt 100.0 kg
[~2020-03-06 19:13] MED LIST changes: +METH4TAB2 PO; +ORPH100T PO
[2020-03-06] MEDS ORDERED: HYDROcodone/APAP 7.5/325MG 1 TAB TABLET PO ONE (20:00)
--- NOTE | 2020-03-06 20:31 | RAD ---
Pelvis and right Two View hip: Clinical History: Pain. Technique: AP view the pelvis AP and frog leg views of the right hip were obtained. Comparison: None. Findings: There has been prior bilateral total hip arthroplasty. The femoral acetabular components are aligned and well seated. The visualized osseous structures appear grossly intact. There is gross osteopenia which decreases sensitivity for a possible nondisplaced fracture. Impression: Status post right hip total arthroplasty. No acute findings. Electronically signed by: Jerardo Mayers III, MD (03/06/2020 8:28 PM) [facility]
--- NOTE | 2020-03-06 20:41 | PHYS DOC ---
Past Medical History Past Medical History: CHF, COPD, GERD (MIGUEL KEITH MD) Past Surgical History: Knee Replacement Additional Past Surgical Histo: hernia with mesh, bilateral hip and knees (MIGUEL KEITH MD) Smoking Status: Current Every Day Smoker Alcohol Use: Heavy Drug Use: None (MIGUEL KEITH MD) General Adult EDM: Chief Complaint: MUSCLE SPASM/CRAMP HPI: HPI: Patient is a 84 year old female who presents with a one-month history of right hip pain rating down the right leg. Patient says she has frequent falls and fell about 3 weeks ago and has had worsening pain since then. Patient also complains of neck pain in the paraspinous musculature. Patient says she is had muscle cramps and her pain is usually taken care of by [employer] but she has not been taking it. She only has 3 pills left. Patient is having trouble sleeping at night. Patient says this all started about a month ago with a rash under her left breast which was treated by her primary physician and subsequently improved but now she has diffuse myalgias and muscle cramps. The worst of which appears to be pain in the back and right hip radiating down the right leg. Pain is worse with range of motion patient denies any bowel or bladder incontinence. (MIGUEL KEITH MD) Review of Systems: Review of Systems: Constitutional: Denies fever or chills. [] Eyes: Denies change in visual acuity. [] HENT: Denies nasal congestion or sore throat. [] Respiratory: Denies cough or shortness of breath. [] Cardiovascular: Denies chest pain or edema. [] GI: Denies abdominal pain, nausea, vomiting, bloody stools or diarrhea. [] : Denies dysuria. [] Musculoskeletal: Complains of lumbar back pain and right hip pain as well as diffuse myalgias Integument: Denies rash. [] Neurologic: Denies headache, focal weakness or sensory changes. [] Endocrine: Denies polyuria or polydipsia. [] Lymphatic: Denies swollen glands. [] Psychiatric: Denies depression or anxiety. [] (MIGUEL KEITH MD) Heart Score: Risk Factors: Risk Factors: DM, Current or recent (<one month) smoker, HTN, HLP, family history of CAD, obesity. Risk Scores: Score 0 - 3: 2.5% MACE over next 6 weeks - Discharge Home Score 4 - 6: 20.3% MACE over next 6 weeks - Admit for Clinical Observation Score 7 - 10: 72.7% MACE over next 6 weeks - Early Invasive Strategies (MIGUEL KEITH MD) Current Medications: Current Medications Medications (Trade) Dose Ordered Sig/Pam Start Time Stop Time Status Last Admin Dose Admin Acetaminophen/ Hydrocodone Bitart (Lortab 7.5/325) 1 tab 1X ONCE 03/06/20 20:00 03/06/20 20:01 DC (MIGUEL KEITH MD) Allergies: Allergies: Allergies Coded Allergies Type Severity Reaction Last Updated Verified Penicillins Allergy Intermediate 04/21/16 Yes Sulfa (Sulfonamide Antibiotics) Allergy Intermediate 04/21/16 Yes iodine Allergy Intermediate 04/21/16 Yes piperacillin Allergy Intermediate 04/05/18 Yes (MIGUEL KEITH MD) Physical Exam: PE: Constitutional: Well developed, well nourished, no acute distress, non-toxic appearance. [] HENT: Normocephalic, atraumatic, bilateral external ears normal, no trismus nose normal. [] Eyes: PERRLA, EOMI, conjunctiva normal, no discharge. [] Neck: Normal range of motion, no tenderness, supple, no stridor. [] Cardiovascular:Heart rate regular rhythm, Lungs & Thorax: No respiratory distress Abdomen: , soft, no tenderness, no masses, no pulsatile masses. [] Skin: Warm, dry, no erythema, no rash. [] Back: No tenderness, no CVA tenderness. [] Extremities: Tender to palpate in the right hip as well as the right thigh and into the right lumbar region. Peripheral pulses intact. Neurologic: Alert and oriented X 3, normal motor function, normal sensory function, no focal deficits noted. [] Dorsiflexion of the great toes intact bi lateral lower extremities. No saddle anesthesia. No evidence of cauda equina Psychologic: Anxious (MIGUEL KEITH MD) PE: Constitutional: Well developed, well nourished, no acute distress, non-toxic appearance HENT: Normocephalic, atraumatic Eyes: Conjunctiva normal, no discharge Neck: Normal range of motion, no tenderness, supple Lungs & Thorax: No respiratory distress, equal chest rise and fall Skin: Warm, dry, no erythema, no rash Neurologic: Alert and oriented X 3,no focal deficits noted Psychologic: Affect normal, judgment normal (PING TSANG DO) Current Patient Data: Vital Signs: Vital Signs Date Time Temp Pulse Resp B/P (MAP) Pulse Ox O2 Delivery O2 Flow Rate FiO2 03/06/20 19:36 98.8 106 18 190/84 (119) 100 Room Air 98.8 (MIGUEL KEITH MD) EKG: EKG: [] (MIGUEL KEITH MD) Radiology/Procedures: Radiology/Procedures: [][facility] [address] [place] [address] IMAGING REPORT Signed PATIENT: MATTHEW PADILLA ACCOUNT: [id number] : 1935 LOCATION: ER AGE: 84 SEX: F EXAM STATUS: REG ER ORD. PHYSICIAN: MIGUEL KEITH MD REASON: right leg pain PROCEDURE: HIP RIGHT 2V WITH PELVIS Pelvis and right Two View hip: Clinical History: Pain. Technique: AP view the pelvis AP and frog leg views of the right hip were obtained. Comparison: None. Findings: There has been prior bilateral total hip arthroplasty. The femoral acetabular components are aligned and well seated. The visualized osseous structures appear grossly intact. There is gross osteopenia which decreases sensitivity for a possible nondisplaced fracture. Impression: Status post right hip total arthroplasty. No acute findings. Electronically signed by: Sanjay Fowler III, MD (03/06/2020 8:28 PM) [facility] DICTATED and SIGNED BY: SAJNAY FOWLER III, MD DATE: 03/06/202027 [facility] [address] [place] [address] IMAGING REPORT Signed PATIENT: MATTHEW PADILLA ACCOUNT: [id number] : 1935 LOCATION: ER AGE: 84 SEX: F EXAM STATUS: REG ER ORD. PHYSICIAN: MIGUEL KEITH MD REASON: fall, back and right leg pain PROCEDURE: CT LUMBAR SPINE WO CONTRAST CT lumbar spine without contrast History: Pain status post fall with back and right leg pain Axial helical images of the lumbar spine were obtained without contrast. Axial, coronal and sagittal reconstruction was performed. Findings: There is grade 1 anterolisthesis of L4 on L5. There is no loss of vertebral body stature. Evaluation of the central canal is limited without contrast. There is diffuse discussed with ridges and hypertrophy of the facets and ligamentum flavum and an element of congenital shortening of pedicles as well as epidural lipomatosis resulting in moderate central stenosis at L1-L2 and marked central stenosis at L5-L3 and marked central stenosis at L3-L4 and mild central stenosis at L4-5. There is marked narrowing of multiple neuroforamen below the level of the exiting nerve roots of is loss of fat around multiple exiting nerve roots bilaterally. Impression: Marked degenerative changes of the lumbar spine with multilevel central and neuroforaminal stenosis. No acute findings. PQRS Compliance Statement: One or more of the following individualized dose reduction techniques were utilized for this examination: 1. Automated exposure control 2. Adjustment of the mA and/or kV according to patient size 3. Use of iterative reconstruction technique Electronically signed by: Sanjay Fowler III, MD (03/06/2020 8:47 PM) [facility] DICTATED and SIGNED BY: SANJAY FOWLER III, MD DATE: 03/06/202046 (MIGUEL KEITH MD) Course & Med Decision Making: Course & Med Decision Making Pertinent Labs and Imaging studies reviewed. (See chart for details) [] 84-year-old female presents with diffuse myalgias, muscle cramps and right leg pain radiating from her back. Most likely she is experiencing pain from degenerative disc disease. Imaging does not reveal acute fracture. Patient has labs that are pending. She will be signed over Dr. Tsang with labs and disposition pending. (MIGUEL KEITH MD) Course & Med Decision Making 2100- Signout received from Dr. Albert for patient with low back pain and radiation down leg consistent for sciatica. Awaiting laboratory results. Reviewed XR results. Labs stable. Patient seen and evaluated by myself. Patient stable for discharge with outpatient follow-up with PCP/pain management. Discussed findings and plan with patient, who acknowledges understanding and agreement. (PING TSANG DO) Prabhjot Disclaimer: Prabhjot Disclaimer: This electronic medical record was generated, in whole or in part, using a voice recognition dictation system. (MIGUEL KEITH MD) Departure Departure Impression: Primary Impression: Sciatica Qualified Codes: M54.30 - Sciatica, unspecified side Disposition: HOME, SELF-CARE Condition: STABLE Referrals: Radha DOMINGUEZ MD (PCP) Patient Instructions: Sciatica, [id number] Additional Instructions: Please take your previously prescribed pain medication and follow with your pain management physician for further evaluation and treatment. Justicifation of Admission Dx: Justifications for Admission: Justification of Admission Dx: N/A (MIGUEL KEITH MD) Justification of Admission Dx: N/A (PING TSANG DO) MIGUEL KEITH MD Mar 06, 2020 20:40 PING TSANG DO Mar 07, 2020 01:24
--- NOTE | 2020-03-06 20:50 | RAD ---
CT lumbar spine without contrast History: Pain status post fall with back and right leg pain Axial helical images of the lumbar spine were obtained without contrast. Axial, coronal and sagittal reconstruction was performed. Findings: There is grade 1 anterolisthesis of L4 on L5. There is no loss of vertebral body stature. Evaluation of the central canal is limited without contrast. There is diffuse discussed with ridges and hypertrophy of the facets and ligamentum flavum and an element of congenital shortening of pedicles as well as epidural lipomatosis resulting in moderate central stenosis at L1-L2 and marked central stenosis at L5-L3 and marked central stenosis at L3-L4 and mild central stenosis at L4-5. There is marked narrowing of multiple neuroforamen below the level of the exiting nerve roots of is loss of fat around multiple exiting nerve roots bilaterally. Impression: Marked degenerative changes of the lumbar spine with multilevel central and neuroforaminal stenosis. No acute findings. PQRS Compliance Statement: One or more of the following individualized dose reduction techniques were utilized for this examination: 1. Automated exposure control 2. Adjustment of the mA and/or kV according to patient size 3. Use of iterative reconstruction technique Electronically signed by: Jerardo Mayers III, MD (03/06/2020 8:47 PM) [facility]
[2020-03-06 21:52] LABS: BASO # 0.1 x10^3/uL (0.0-0.2); BASO % 1 % (0-3); EOS # 0.2 x10^3/uL (0.0-0.7); EOS % 2 % (0-3); HEMATOCRIT 38.4 % (36.0-47.0); HEMOGLOBIN 12.8 g/dL (12.0-15.5); LYMPH # 2.4 x10^3/uL (1.0-4.8); LYMPH % 29 % (24-48); MEAN CORPUSCULAR HEMOGLOBIN 31 pg (25-35); MEAN CORPUSCULAR HGB CONC 33 g/dL (31-37); MEAN CORPUSCULAR VOLUME 92 fL (79-100); MONO # 0.9 x10^3/uL (0.0-1.1); MONO % 11 % (0-9); NEUT # 4.6 x10^3/uL (1.8-7.7); NEUT % 56 % (31-73); PLATELET COUNT 366 x10^3/uL (140-400); RED BLOOD COUNT 4.18 x10^6/uL (3.50-5.40); RED CELL DISTRIBUTION WIDTH 14.2 % (11.5-14.5); WHITE BLOOD COUNT 8.2 x10^3/uL (4.0-11.0)
[2020-03-06 21:59] LABS: PROTHROMBIN TIME PATIENT 12.6 SEC (11.7-14.0)
[2020-03-06 22:00] LABS: CALCIUM 9.3 mg/dL (8.5-10.1); CREATININE 1.1 mg/dL (0.6-1.0); GFR 57.5; POTASSIUM 3.8 mmol/L (3.5-5.1)
[2020-03-06 22:06] LABS: ALBUMIN 3.3 g/dL (3.4-5.0); ALBUMIN/GLOBULIN RATIO 0.7 (1.0-1.7); TOTAL BILIRUBIN 0.5 mg/dL (0.2-1.0); TOTAL PROTEIN 7.9 g/dL (6.4-8.2)
[2020-03-07 00:13] LABS: BILIRUBIN,URINE LARGE (NEG); CLARITY,URINE CLEAR; COLOR,URINE AMBER; NITRITE,URINE NEGATIVE (NEG); PROTEIN,URINE NEGATIVE (NEG-TRACE)
[2020-03-07 00:20] LABS: BACTERIA,URINE FEW /HPF (0-FEW); HYALINE CASTS, URINE MANY /HPF; RBC,URINE OCC /HPF (0-2); SQUAMOUS EPITHELIAL CELL,UR MOD /LPF
[2020-03-07 01:45] VITALS: BP 128/69
[2020-03-07] MEDS ORDERED: HYDROcodone/APAP 5/325MG 1 TAB TABLET PO ONE (02:00)
== END 2020-03-07 02:08 | disposition home or self-care (01) ==
LOC: ER 19:13
DX: M54.41 Lumbago with sciatica, right side (principal); G89.11 Acute pain due to trauma; M25.551 Pain in right hip; M54.2 Cervicalgia; M79.651 Pain in right thigh; J44.9 Chronic obstructive pulmonary disease, unspecified; K21.9 Gastro-esophageal reflux disease without esophagitis; F17.200 Nicotine dependence, unspecified, uncomplicated; F10.20 Alcohol dependence, uncomplicated; Y90.9 Presence of alcohol in blood, level not specified; Z98.890 Other specified postprocedural states; Z96.641 Presence of right artificial hip joint; Z96.653 Presence of artificial knee joint, bilateral; Z86.79 Personal history of other diseases of the circulatory system; Z88.0 Allergy status to penicillin; Z88.1 Allergy status to other antibiotic agents; Z88.2 Allergy status to sulfonamides; Z88.8 Allergy status to other drugs, medicaments and biological substances; W18.39XA Other fall on same level, initial encounter; Y93.89 Activity, other specified; Y92.89 Other specified places as the place of occurrence of the external cause; Y99.8 Other external cause status
CPT/HCPCS: 36415; 72131; 73502; 80053; 81001; 85025; 85610; 85730; 87086; 99285

== ENCOUNTER → 2020-03-18 | Outpatient (CLI) | payer OTHER, MEDICAID ==
[2020-03-07 01:45] VITALS: BP 128/69
[~2020-03-18] MED LIST changes: +methylPREDNISolone ACETATE 40 MG/ML VIAL. ONE; +methylPREDNISolone ACETATE 80 MG/ML VIAL. ONE
--- NOTE | 2020-03-18 10:48 | PDOC ---
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 Velásquez an 82-year-old female turns follow-up status post lumbar epidural surgery x1 December 11, 2018 patient reports she did very well for several months after the injection but over the past month or so the pain is been returning in the low back and the bilateral lower extremities patient reports it is worse with walking standing she getting up from a seated position from her wheelchair. Ports no new motor or sensory deficits no bowel or bladder incontinence describes pain as cramping severe at times on and off in intensity reports it still wakes her from sleep at night over the past month or so initially he was doing much better with distance walking getting in and out of her chair easier doing household activities greater ease and comfort. Patient rates her pain is a 10 on scale of 10 is worst average at least as of 10 today patient ports no new motor or sensory deficits no new bowel or bladder incontinence or other complaints. Physical Exam: VS: Blood pressure 117/70 pulse 76 respirations are 20 temperature 98.2 F. PE: PHYSICAL EXAMINATION: GENERAL: The patient is awake, alert, oriented, appropriate, very pleasant demeanor HEENT: Shows normocephalic, atraumatic. Extraocular movements are intact and symmetrical. Oral cavity: Mucous membranes moist and pink. Dentition is intact. NECK: Shows anterior throat supple without palpable lymphadenopathy noted. Swallow reflex symmetrical. CHEST: Shows normal on inspection. Breath sounds are clear bilaterally, no rales rhonchi or wheezes auscultated. HEART: Shows S1, S2 clear. No murmurs auscultated. ABDOMEN: Soft, nontender, nondistended. No palpable organomegaly is noted. No rebound or guarding demonstrated. BACK: Shows spine grossly in the midline. Normal-appearing cervical lordotic curvature. There is slightly increased thoracic kyphosis, some minor flattening of the lumbar lordotic curvature. Lumbar paraspinous muscles show symmetrical on inspection, on palpation shows some moderate tenderness diffusely throughout the upper, middle and lower distribution of the paraspinous muscles bilaterally and also into the lower thoracic paraspinous musculature, but without specific trigger points, without radiation of pain. The patient has good rotational motion of the lumbar spine, both laterally as well as extension and flexion w ithout significant difficulty. No tenderness over the spinous processes, sacrum or sacroiliac regions. EXTREMITIES: Lower extremities show deep tendon reflexes 1+ in the patellar and tendo calcaneus tendons. Motor exam is 4 on a scale of 5 with right shira siflexion, extension, quadriceps and hamstring flexion and 4/5 on the left. Peripheral pulses are 1+ posterior tibial. 1-2+ peripheral edema is noted bilaterally. Lower extremities are warm and dry to touch, equal in color and appearance. The patient is able to stand but needs assistance getting up out of her chair and has very unsteady gait with ambulating on her own and does need assistance. SKIN: Shows warm and dry, good turgor. No edema. No sores, rashes or bruising throughout. Options were discussed with the patient. The patient's old chart was reviewed and current medication regimen updated. [] Procedure: Procedure: Options were discussed with the patient patient's old chart was reviewed as her current medication regimen updated current review of systems updated today as well we will proceed with a second in the series lumbar epidural steroid injection today risks were discussed including but not limited to bleeding infection possibility of epidural hematoma and subsequent neurological compromise dural puncture headache spinal cord and or nerve damage side effects of steroid medication/chronic pain control. Patient understands wished to proceed. Patient return to clinic in approximately 2 weeks for follow-up was counseled return appointment to level and side effects to be aware of. Medication Injected: Med Injected: Procedure is lumbar epidural steroid injection under local anesthetic using sterile prep and drape at the L4-5 level using C-arm fluoroscopic guidance in both AP and lateral views medications injected is 120 mg Depo-Medrol + 10 mL preservative-free normal saline and 2 mL Isovue for contrast- condition at discharge is stable patient tolerated procedure well had no complications. Condition at Discharge: Condition at Discharge: Stable patient tolerated procedure well had no complications. RODGER BEACH MD Mar 18, 2020 10:48
== END | disposition home or self-care (01) ==
LOC: PNCL 10:08
PROVIDERS: ATTEND Anesthesiology
DX: M51.16 Intervertebral disc disorders with radiculopathy, lumbar region (principal); M48.061 Spinal stenosis, lumbar region without neurogenic claudication; J44.9 Chronic obstructive pulmonary disease, unspecified; F17.210 Nicotine dependence, cigarettes, uncomplicated; Z88.8 Allergy status to other drugs, medicaments and biological substances; Z79.899 Other long term (current) drug therapy; Z88.0 Allergy status to penicillin; Z88.2 Allergy status to sulfonamides
CPT/HCPCS: 62323; J1030; J1040

== ENCOUNTER → 2021-01-27 | Outpatient (CLI) | payer OTHER, MEDICAID ==
[~2021-01-27] MED LIST changes: -methylPREDNISolone ACETATE 40 MG/ML VIAL. ONE; -methylPREDNISolone ACETATE 80 MG/ML VIAL. ONE
--- NOTE | 2021-01-28 09:28 | RAD ---
Noncontrast CT scan of the abdomen and pelvis compared to similar exam dated December 27, 2019 for left fl ank pain, renal mass. TECHNIQUE: Contiguous axial CT images are obtained from the apex of diaphragm to the pelvic floor. No IV contrast was administered. Sagittal coronal reformations are evaluated. FINDINGS: Lung bases are clear. Liver, spleen, pancreas, and bilateral adrenal glands are normal. Gal lbladder is contracted or surgically absent. There is redemonstration of a partially calcified partia lly cystic lesion involving the midpole the right kidney which is stable. This remains indeterminate, however benign-appearing is favored given stability. Exophytic hyperdense abnormality arising from t he inferior pole left kidney is stable in size and attenuation as well, with Hounsfield units in exce ss of 70 today consistent with a benign hyperdense cyst. No suspicious adenopathy. No free or loculat ed fluid collections. Evaluation of the enteric structures is limited by lack of oral contrast, howev er no gross abnormalities are evident. Bilateral hip arthroplasties are present, with significant str eak artifact obscuring much of the pelvis. Several phleboliths are seen. Extensive multilevel degener ative changes of the lower thoracic and lumbar spine are redemonstrated along with dish. IMPRESSION: 1. Exophytic left renal abnormality consistent with a benign hyperdense cyst on today's examination. No further follow-up is required for this lesion. 2. Stable partially calcified partially cystic abnormality of the midpole the right kidney, indetermi cristina but likely benign. If this lesion remains stable on a single annual follow-up CT scan, benignity can be safely concluded. PQRS Compliance Statement: One or more of the following individualized dose reduction techniques were utilized for this examinat ion: 1. Automated exposure control 2. Adjustment of the mA and/or kV according to patient size 3. Use of iterative reconstruction technique Electronically signed by: Arnaldo Juarez MD (01/28/2021 9:25 AM) [id number]
== END ==
LOC: CT 10:59
PROVIDERS: ATTEND Family Medicine
DX: N28.1 Cyst of kidney, acquired (principal); N28.89 Other specified disorders of kidney and ureter
CPT/HCPCS: 74176

== ENCOUNTER 2021-01-31 08:15 | Emergency (ER) | payer OTHER, MEDICAID ==
[~2021-01-31] VITALS: Ht 153.7 cm; Wt 88.1 kg
[2021-01-31 08:21] VITALS: BP 198/103
--- NOTE | 2021-01-31 08:37 | ED.ADGEN ---
Past Medical History Past Medical History: CHF, COPD, Diabetes-Type II, GERD, Hypertension, Other Past Surgical History: Appendectomy, Cholecystectomy, Hysterectomy, Knee Replacement Additional Past Surgical Histo: hernia with mesh, bilateral hip and knees Smoking Status: Current Every Day Smoker Additional Information: 08/16 ppd Alcohol Use: Sober Additional Information: sober x 20 years Drug Use: None General Adult EDM: Chief Complaint: ABDOMINAL PAIN HPI: HPI: Patient is an 85-year-old female who presents to the emergency room complaining of left-sided pain. She states that she has left-sided abdominal cramping, chest wall cramping, pain into her left hip and leg. This pain feels mostly like cramping. It will ease up and can then come back. She seen her primary care physician for the same pain twice in the last couple of weeks. They initially put her on gabapentin which she states did not help. They then put he r on oxycodone which she states helps some but does not make the pain go away. This pain is been constant for 2 months and does not have any new features. She denies any numbness or weakness. She denies any nausea, vomiting, shortness of breath, cough, fever, chills, sweats. She has CT abdomen pelvis earlier this week which was read as stable from prior CT. Review of Systems: Review of Systems: Complete ROS is negative unless otherwise documented in HPI Current Medications: Current Medications Medications (Trade) Dose Ordered Sig/[facility] Start Time Stop Time Status Last Admin Dose Admin Ketorolac Tromethamine (Toradol 30mg Vial) 30 mg 1X ONCE 01/31/21 10:30 01/31/21 10:33 DC 01/31/21 10:51 30 MG Methocarbamol (Robaxin) 1,000 mg 1X ONCE 01/31/21 10:30 01/31/21 10:33 DC 01/31/21 10:50 1,000 MG Allergies: Allergies: Allergies Coded Allergies Type Severity Reaction Last Updated Verified Penicillins Allergy Intermediate hives 01/31/21 Yes Sulfa (Sulfonamide Antibiotics) Allergy Intermediate itching 01/31/21 Yes iodine Allergy Intermediate hives, itching 01/31/21 Yes piperacillin Allergy Intermediate hives 01/31/21 Yes Physical Exam: PE: General: Awake, alert, NAD. Well Nourished, well hydrated. Cooperative HEENT: Atraumatic, EOMI, PERRL, airway patent, moist oral mucosa Neck: Supple, trachea midline Respiratory: CTA bilaterally, normal effort, no wheezing/crackles CV: RRR, no murmur, cap refill <2 GI: Soft, nondistended, nontender, no masses MSK: No obvious deformities Skin: Warm, dry, intact Neuro: A&O x3, speech NL, 5/5 strength in BUE/BLE distally and proximally, CN 2- 12 intact, cerebellar testing normal Psych: Normal affect, normal mood, not suicidal or homicidal Current Patient Data: Labs: Laboratory Tests Test 01/31/21 09:10 01/31/21 09:40 01/31/21 11:35 White Blood Count 5.9 x10^3/uL (4.0-11.0) Red Blood Count 4.21 x10^6/uL (3.50-5.40) Hemoglobin 12.2 g/dL (12.0-15.5) Hematocrit 36.8 % (36.0-47.0) Mean Corpuscular Volume 87 fL (79-100) Mean Corpuscular Hemoglobin 29 pg (25-35) Mean Corpuscular Hemoglobin Concent 33 g/dL (31-37) Red Cell Distribution Width 15.3 % (11.5-14.5) H Platelet Count 259 x10^3/uL (140-400) Neutrophils (%) (Auto) 44 % (31-73) Lymphocytes (%) (Auto) 41 % (24-48) Monocytes (%) (Auto) 11 % (0-9) H Eosinophils (%) (Auto) 3 % (0-3) Basophils (%) (Auto) 1 % (0-3) Neutrophils # (Auto) 2.6 x10^3/uL (1.8-7.7) Lymphocytes # (Auto) 2.4 x10^3/uL (1.0-4.8) Monocytes # (Auto) 0.7 x10^3/uL (0.0-1.1) Eosinophils # (Auto) 0.2 x10^3/uL (0.0-0.7) Basophils # (Auto) 0.1 x10^3/uL (0.0-0.2) Sodium Level 142 mmol/L (136-145) Potassium Level 4.7 mmol/L (3.5-5.1) Chloride Level 107 mmol/L (98-107) Carbon Dioxide Level 26 mmol/L (21-32) Anion Gap 9 (6-14) Blood Urea Nitrogen 12 mg/dL (7-20) Creatinine 0.6 mg/dL (0.6-1.0) Estimated GFR (Cockcroft-Gault) 115.5 BUN/Creatinine Ratio 20 (6-20) Glucose Level 134 mg/dL (70-99) H Calcium Level 8.9 mg/dL (8.5-10.1) Magnesium Level 1.9 mg/dL (1.8-2.4) Total Bilirubin 0.5 mg/dL (0.2-1.0) Aspartate Amino Transferase (AST) 55 U/L (15-37) H Alanine Aminotransferase (ALT) 59 U/L (14-59) Alkaline Phosphatase 97 U/L (46-116) Total Protein 6.8 g/dL (6.4-8.2) Albumin 3.3 g/dL (3.4-5.0) L Albumin/Globulin Ratio 0.9 (1.0-1.7) L Lipase 49 U/L (73-393) L Ethyl Alcohol Level < 10 mg/dL (0-10) Urine Collection Type Unknown Urine Color Yellow Urine Clarity Clear Urine pH 6.0 (<5.0-8.0) Urine Specific [place] 1.010 (1.000-1.030) Urine Protein Negative mg/dL (NEG-TRACE) Urine Glucose (UA) Negative mg/dL (NEG) Urine Ketones (Stick) Negative mg/dL (NEG) Urine Blood Negative (NEG) Urine Nitrite Negative (NEG) Urine Bilirubin Negative (NEG) Urine Urobilinogen Dipstick 0.2 mg/dL (0.2 mg/dL) Urine Leukocyte Esterase Negative (NEG) Urine RBC 0 /HPF (0-2) Urine WBC 0 /HPF (0-4) Urine Bacteria 0 /HPF (0-FEW) Troponin I Quantitative < 0.017 ng/mL (0.000-0.055) Laboratory Tests 01/31/21 09:10 Laboratory Tests 01/31/21 09:10 Vital Signs: Vital Signs Date Time Temp Pulse Resp B/P (MAP) Pulse Ox O2 Delivery O2 Flow Rate FiO2 01/31/21 08:21 98.3 70 20 198/103 (134) 99 Room Air 98.3 EKG: EKG: Normal sinus rhythm, HR 67, prolonged FL Heart Score: C/O Chest Pain: Yes HEART Score for Chest Pain: HEART Score for Chest Pain Response (Comments) Value History Slighlty/Non-Suspicious 0 ECG Normal 0 Age > 65 2 Risk Factors 1 or 2 Risk Factors 1 Troponin < Normal Limit 0 Total 3 Risk Factors: Risk Factors: DM, Current or recent (<one month) smoker, HTN, HLP, family history of CAD, obesity. Risk Scores: Score 0 - 3: 2.5% MACE over next 6 weeks - Discharge Home Score 4 - 6: 20.3% MACE over next 6 weeks - Admit for Clinical Observation Score 7 - 10: 72.7% MACE over next 6 weeks - Early Invasive Strategies Radiology/Procedures: Radiology/Procedures: [] Course & Med Decision Making: Course & Med Decision Making Pertinent Labs and Imaging studies reviewed. (See chart for details) Patient is an 85-year-old female who presents to the emergency room complaining of pain on her entire left side. This pain has been unchanged for the last 2 months. Patient had a CT scan at her primary care's office a few days ago that was stable from prior CT with no new findings. Patient does not have history of an aortic aneurysm. Chest pain is very atypical. EKG is normal. patient does not have any associated symptoms. Lab work will be done including abdominal lab work and troponin to evaluate for any signs of serious pathology. Patient does not have any signs of peritonitis, abdominal tenderness, guarding. Given that pain is been ongoing for 2 months and is unchanged and aortic dissection is unlikely. Pulses are equal in all 4 extremities and patient does not have any neurologic deficits. We will treat the patient's pain symptomatically. Patient's test results and vitals while in the ED were fully reviewed and discussed with the patient. Patient is stable and at this time does not need admission to the hospital. We have discussed strict return precautions and the importance of following up with their Primary Care Physician. Patient stated understanding and was given an opportunity to ask any questions. Patient is in agreement with plan. Prabhjot Disclaimer: Prabhjot Disclaimer: This electronic medical record was generated, in whole or in part, using a voice recognition dictation system. Departure Departure Impression: Primary Impression: Chronic abdominal pain Additional Impression: Sciatica Disposition: HOME / SELF CARE / HOMELESS Condition: STABLE Referrals: Radha DOMINGUEZ MD (PCP) Patient Instructions: Abdominal Pain, Sciatica Scripts Methocarbamol (METHOCARBAMOL) 500 Mg Tablet 500 MG PO QID PRN for MUSCLE PAIN for 5 Days, #20 TAB Prov: AMADOR MARRERO MD 01/31/21 Problem Qualifiers AMADOR MARRERO MD Jan 31, 2021 08:37
[2021-01-31 09:20] LABS: BASO # 0.1 x10^3/uL (0.0-0.2); BASO % 1 % (0-3); EOS # 0.2 x10^3/uL (0.0-0.7); EOS % 3 % (0-3); HEMATOCRIT 36.8 % (36.0-47.0); HEMOGLOBIN 12.2 g/dL (12.0-15.5); LYMPH # 2.4 x10^3/uL (1.0-4.8); LYMPH % 41 % (24-48); MEAN CORPUSCULAR HEMOGLOBIN 29 pg (25-35); MEAN CORPUSCULAR HGB CONC 33 g/dL (31-37); MEAN CORPUSCULAR VOLUME 87 fL (79-100); MONO # 0.7 x10^3/uL (0.0-1.1); MONO % 11 % (0-9); NEUT # 2.6 x10^3/uL (1.8-7.7); NEUT % 44 % (31-73); PLATELET COUNT 259 x10^3/uL (140-400); RED BLOOD COUNT 4.21 x10^6/uL (3.50-5.40); RED CELL DISTRIBUTION WIDTH 15.3 % (11.5-14.5); WHITE BLOOD COUNT 5.9 x10^3/uL (4.0-11.0)
[2021-01-31 09:27] LABS: CALCIUM 8.9 mg/dL (8.5-10.1); CREATININE 0.6 mg/dL (0.6-1.0); GFR 115.5
[2021-01-31 09:33] LABS: ALBUMIN 3.3 g/dL (3.4-5.0); ALBUMIN/GLOBULIN RATIO 0.9 (1.0-1.7); MAGNESIUM 1.9 mg/dL (1.8-2.4); TOTAL BILIRUBIN 0.5 mg/dL (0.2-1.0); TOTAL PROTEIN 6.8 g/dL (6.4-8.2)
[2021-01-31 09:36] LABS: POTASSIUM 4.7 mmol/L (3.5-5.1)
[2021-01-31 09:59] LABS: BILIRUBIN,URINE NEGATIVE (NEG); CLARITY,URINE CLEAR; COLOR,URINE YELLOW; NITRITE,URINE NEGATIVE (NEG); PROTEIN,URINE NEGATIVE (NEG-TRACE); UROBILINOGEN,URINE 0.2 mg/dL (0.2 mg/dL)
[2021-01-31 10:25] LABS: BACTERIA,URINE 0 /HPF (0-FEW); RBC,URINE 0 /HPF (0-2); WBC,URINE 0 /HPF (0-4)
[2021-01-31] MEDS ORDERED: METHOCARBAMOL 500 MG TABLET PO ONE (10:30)
[2021-01-31] MEDS ORDERED: KETOROLAC 30 MG/ML VIAL. IVP ONE (10:30)
[2021-01-31] MEDS ORDERED: METH-561 PO (11:46)
--- NOTE | 2021-02-01 00:55 | EKG ---
[facility] [address] [place] [address] Test Date: 2021-01-31 Test Time: 08:29:48 Pat Name: MATTHEW PADILLA Department: Room: Gender: F Clinical Informaticist: : 1935 Requested By: AMADOR MARRERO Order Number: [id number] Reading MD: Measurements Intervals [place] Rate: 67 P: 90 MT: 226 QRS: -18 QRSD: 84 T: 55 QT: 400 QTc: 426 Interpretive Statements SINUS RHYTHM PROLONGED MT INTERVAL LEFTWARD AXIS ABNORMAL ECG RI6.02 No previous ECG available for comparison
--- NOTE | 2021-02-16 09:44 | EKG ---
[facility] [address] [place] [address] Test Date: 2021-01-31 Test Time: 08:29:48 Pat Name: MATTHEW PADILLA Department: Room: Gender: F Pattern Assembler: : 1935 Requested By: AMADOR MARRERO Order Number: [id number] Reading MD: Measurements Intervals [place] Rate: 67 P: 90 UT: 226 QRS: -18 QRSD: 84 T: 55 QT: 400 QTc: 426 Interpretive Statements SINUS RHYTHM PROLONGED [place] INTERVAL LEFTWARD AXIS ABNORMAL ECG RI6.02 Compared to ECG 12/27/2019 22:26:23 Left-axis deviation now present
== END 2021-01-31 13:52 | disposition home or self-care (01) ==
LOC: ER 08:15
DX: G89.29 Other chronic pain (principal); R10.9 Unspecified abdominal pain; M54.32 Sciatica, left side
CPT/HCPCS: 36415; 80053; 81001; 83690; 83735; 84484; 85025; 93005; 96374; 99284; G0480; J1885